=== PATIENT | male | born 1955 | race Caucasian/White ===

== ENCOUNTER 2017-04-11 13:12 | Inpatient (IN) | payer BC ==
--- NOTE | 2017-04-11 14:16 | RAD ---
INDICATION: Pneumonia. History of bronchiectasis COMPARISON: Chest x-ray May 03, 2015 TECHNIQUE: PA and lateral dual-energy views were obtained. FINDINGS: Bones/Soft Tissues: There are no acute bony findings. Cardiomediastinal: The cardiomediastinal silhouette is normal. Lungs: There is persistent airspace disease in the left lung base which is consistent with the clinical history of bronchiectasis. There is mild interval worsening suggesting the possibility of a superimposed infiltrate. The remaining lung jimenez are clear. There is hyperinflation. Pleura: There are no significant pleural effusions. Other: None IMPRESSION: Persistent left basilar abnormalities. Mild interval worsening suggests a superimposed acute upon chronic process.
[2017-04-11 17:11] LABS: Hematocrit 41 % (42-52); Hemoglobin 13.5 g/dl (14.0-18.0); Mean Corpuscular HGB Conc 33 g/dl (31-36); Mean Corpuscular Hemoglobin 31 pg (27-31); Mean Corpuscular Volume 93 fL (80-94); Mean Platelet Volume 7 um3 (7.4-10.4); Red Blood Count 4.36 10^6/ul (4.0-5.4); Red Cell Distribution Width 15 % (10.5-15); White Blood Count 16.3 10^3/ul (3.5-10.8)
[2017-04-11 17:25] LABS: Albumin 4.1 g/dL (3.2-5.2); BUN/Creatinine Ratio 24.7 (8-20); Calcium 9.5 mg/dL (8.6-10.3); EGFR African American 100.5 (>60); EGFR Non-African American 78.2 (>60); Globulin 4.3 g/dL (2-4); Potassium 4.3 mmol/L (3.5-5.0); Total Bilirubin 0.4 mg/dL (0.2-1.0); Total Protein 8.4 g/dL (6.4-8.9)
[2017-04-11] MEDS ORDERED: Cefepime(*) 2 GM in NS 0.9% 50 ML* 50 ML IVPB ONE (17:38)
[2017-04-11] MEDS ORDERED: Albuterol 2.5 MG/3 ML NEB.SOL* (0.083%) INH PRN (19:32)
[2017-04-11] MEDS ORDERED: Iohexol 350* (CONTRAST) 500 ML MDV IV ONE (19:49)
[2017-04-11] MEDS ORDERED: Vancomycin per Pharmacy* NOTE FOLLOW UP PRN (19:51)
--- NOTE | 2017-04-11 20:20 | ED ---
Doris Clay Thomas, scribed for Kory Ogden MD on 04/11/17 at 1726 . Throat Pain/Nasal Congestion - HPI Summary HPI Summary: Pt is a 61 y/o M presenting to the ED c/o hemoptysis and epistaxis. The pt reports a chronic cough that is lessening in severity and frequency since weeks ago when the cough began. Additional c/o fatigue and diaphoresis. Denies fever, vomiting, chills, changes in appetite, abd pain, pedal edema, SOB. The pt has an extensive PMHx of sinusitis and bronchiectasis. The pt says that he typically needs Abx for sinusitis about twice a year. The patient is currently taking a course of Avelox with tomorrow his last day. He has taken Abx for sinusitis two times in the last three months. His first of two previous infections occurred when he was in the ocean and took copious water up his nose. After two rounds of 10-day doxycycline, he was still coughing and had a "foul smell in his nose", after which he was prescribed Levofloxacin. The pt is currently on prednisone and Avelox. - History of Current Complaint Chief Complaint: EDGeneral Hx Obtained From: Patient Onset/Duration: Lasting Days - bloody sputum began today Cough: Other: - POS: cough - Allergies/Home Medications Allergies/Adverse Reactions: Allergies Allergy/AdvReac Type Severity Reaction Status Date / Time Sulfamethoxazole Allergy Unknown Unknown Verified 02/06/16 21:38 w/Trimethoprim Reaction [From Bactrim] Details Home Medications: Home Medications Cetirizine* [ZyrTEC 10 MG TAB*] 10 mg PO QPM 04/11/17 [History Confirmed ] Cholecalciferol TAB* [Vitamin D TAB*] 3,000 units PO DAILY 04/11/17 [History Confirmed 04/11/17] Dimethyl Fumarate(NF) [Tecfidera(NF)] 240 mg PO BID 04/11/17 [History Confirmed 04/11/17] Escitalopram (NF) [Lexapro 10 mg (NF)] 10 mg PO DAILY 04/11/17 [History Confirmed 04/11/17] Interferon Beta-1A [Avonex Pen] 30 mcg IM WEEKLY 04/11/17 [History Confirmed ] Lactobacillus Acidophilu (GG)* [Culturelle*] 1 cap PO DAILY 04/11/17 [History Confirmed 04/11/17] Lisdexamfetamine (NF) [Vyvanse (NF)] 30 mg PO QAM 04/11/17 [History Confirmed ] LoraTADine TAB(NF) [Claritin 10 MG TAB(NF)] 10 mg PO QAM 04/11/17 [History Confirmed 04/11/17] Mometasone NASAL (NF) [Nasonex (NF)] 1 spray BOTH NARES DAILY 04/11/17 [History Confirmed 04/11/17] Moxifloxacin TAB(NF) [Avelox TAB (NF)] 400 mg PO QAM 04/11/17 [History Confirmed 04/11/17] [place]-3 Fatty Acids (Nf) [Fish Oil (NF)] 1,000 mg PO DAILY 04/11/17 [History Confirmed 04/11/17] predniSONE TAB* [Deltasone TAB*] 10 mg PO QAM 04/11/17 [History Confirmed ] PMH/Surg Hx/FS Hx/Imm Hx Previously Healthy: No Respiratory History: Reports: Hx Asthma - NO INHALER, Other Respiratory Problems /Disorders - bronchiectasis MANY MEDS Musculoskeletal History: Denies: Hx Rheumatoid Arthritis, Hx Osteoporosis Infectious Disease History: No Infectious Disease History: Denies: Traveled Outside the [place] in Last 30 Days - Family History Known Family History: Positive: Cardiac Disease Family History: Father - [place] - Social History Alcohol Use: Rare Hx Substance Use: No Substance Use Type: Reports: None Hx Tobacco Use: No Smoking Status (MU): Never Smoked Tobacco Review of Systems Positive: Fatigue, Skin Diaphoresis. Negative: Fever, Chills Positive: Epistaxis Positive: Cough - cough with hemoptysis. Negative: Shortness Of Breath Positive: Other - NEG: changes in appetite. Negative: Abdominal Pain, Vomiting Negative: Edema - pedal All Other Systems Reviewed And Are Negative: Yes Physical Exam - Summary Physical Exam Summary: The patient is well-nourished in no acute distress and in no acute pain. The skin is warm and dry and skin color reflects adequate perfusion. HEENT: The head is normocephalic and atraumatic. The pupils are equal and reactive. The conjunctivae are clear and without drainage. Nares are patent and without drainage. Mouth reveals moist mucous membranes and the throat is without erythema and exudate with no post nasal drip. Neck is supple with full range of motion and non-tender. There are no carotid bruits. There is no neck vein distension. Respiratory: Rhonchi and some wheezing in the left lung field.Chest is non- tender. Cardiovascular: Hear is regular rate and rhythm. There is no murmur or rub auscultated. There is no peripheral edema and pulses are symmetrical and equal. Abdomen: The abdomen is soft and non-tender. There are normal bowel sounds heard in all four quadrants and there is no organomegaly palpated. Musculoskeletal: There is no back pain noted. Extremities are non-tender with full range of motion. There is good capillary refill. There is no peripheral edema or calf tenderness elicited. Neurological: Patient is alert and oriented to person, place and time. The patient has symmetrical motor strength in all four extremities. Cranial nerves are grossly intact. Deep tendon reflexes are symmetrical and equal in all four extremities. Psychiatric: The patient has an appropriate affect and does not exhibit any anxiety or depression. Triage Information Reviewed: Yes Vital Signs On Initial Exam: Initial Vitals Temp Pulse Resp BP Pulse Ox 98.0 F 95 20 140/68 97 04/11/17 13:15 04/11/17 13:15 04/11/17 13:15 04/11/17 13:15 04/11/17 13:15 Vital Signs Reviewed: Yes - [place]ara Coma Scale Coma Scale Total: 15 Diagnostics - Vital Signs Vital Signs Temp Pulse Resp BP Pulse Ox 04/11/17 16:25 98.9 F 99 21 149/67 95 04/11/17 15:26 98.2 F 92 20 138/66 99 04/11/17 13:15 98.0 F 95 20 140/68 97 - Laboratory Lab Results: Lab Results 04/11/17 04/11/17 04/11/17 Range/Units 16:55 16:55 16:55 WBC 16.3 H (3.5-10.8) 10^3/ul RBC 4.36 (4.0-5.4) 10^6/ul Hgb 13.5 L (14.0-18.0) g/dl Hct 41 L (42-52) % MCV 93 (80-94) fL MCH 31 (27-31) pg MCHC 33 (31-36) g/dl RDW 15 (10.5-15) % Plt Count 396 (150-450) 10^3/ul MPV 7 L (7.4-10.4) um3 Neut % (Auto) 92.0 H (38-83) % Lymph % (Auto) 5.2 L (25-47) % [place] % (Auto) 2.6 (1-9) % Eos % (Auto) 0.1 (0-6) % Baso % (Auto) 0.1 (0-2) % Absolute Neuts (auto) 15.0 H (1.5-7.7) 10^3/ul Absolute Lymphs (auto) 0.8 L (1.0-4.8) 10^3/ul Absolute Monos (auto) 0.4 (0-0.8) 10^3/ul Absolute Eos (auto) 0 (0-0.6) 10^3/ul Absolute Basos (auto) 0 (0-0.2) 10^3/ul Absolute Nucleated RBC 0 10^3/ul Nucleated RBC % 0 INR (Anticoag Therapy) 0.90 (0.89-1.11) D-Dimer, Quantitative < 200 (Less Than 230) ng/mL Sodium 135 (133-145) mmol/L Potassium 4.3 (3.5-5.0) mmol/L Chloride 99 L (101-111) mmol/L Carbon Dioxide 27 (22-32) mmol/L Anion Gap 9 (2-11) mmol/L BUN 24 (6-24) mg/dL Creatinine 0.97 (0.67-1.17) mg/dL Est GFR ( Amer) 100.5 (>60) Est GFR (Non-Af Amer) 78.2 (>60) BUN/Creatinine Ratio 24.7 H (8-20) Glucose 117 H (70-100) mg/dL Lactic Acid (0.5-2.0) mmol/L Calcium 9.5 (8.6-10.3) mg/dL Total Bilirubin 0.40 (0.2-1.0) mg/dL AST 12 L (13-39) U/L ALT 12 (7-52) U/L Alkaline Phosphatase 60 (34-104) U/L Troponin I 0.00 (<0.04) ng/mL B-Natriuretic Peptide ( - 100) pg/mL Total Protein 8.4 (6.4-8.9) g/dL Albumin 4.1 (3.2-5.2) g/dL Globulin 4.3 H (2-4) g/dL Albumin/Globulin Ratio 1.0 (1-3) 04/11/17 04/11/17 Range/Units 16:55 16:55 WBC (3.5-10.8) 10^3/ul RBC (4.0-5.4) 10^6/ul Hgb (14.0-18.0) g/dl Hct (42-52) % MCV (80-94) fL MCH (27-31) pg MCHC (31-36) g/dl RDW (10.5-15) % Plt Count (150-450) 10^3/ul MPV (7.4-10.4) um3 Neut % (Auto) (38-83) % Lymph % (Auto) (25-47) % [place] % (Auto) (1-9) % Eos % (Auto) (0-6) % Baso % (Auto) (0-2) % Absolute Neuts (auto) (1.5-7.7) 10^3/ul Absolute Lymphs (auto) (1.0-4.8) 10^3/ul Absolute Monos (auto) (0-0.8) 10^3/ul Absolute Eos (auto) (0-0.6) 10^3/ul Absolute Basos (auto) (0-0.2) 10^3/ul Absolute Nucleated RBC 10^3/ul Nucleated RBC % INR (Anticoag Therapy) (0.89-1.11) D-Dimer, Quantitative (Less Than 230) ng/mL Sodium (133-145) mmol/L Potassium (3.5-5.0) mmol/L Chloride (101-111) mmol/L Carbon Dioxide (22-32) mmol/L Anion Gap (2-11) mmol/L BUN (6-24) mg/dL Creatinine (0.67-1.17) mg/dL Est GFR ( Amer) (>60) Est GFR (Non-Af Amer) (>60) BUN/Creatinine Ratio (8-20) Glucose (70-100) mg/dL Lactic Acid 0.8 (0.5-2.0) mmol/L Calcium (8.6-10.3) mg/dL Total Bilirubin (0.2-1.0) mg/dL AST (13-39) U/L ALT (7-52) U/L Alkaline Phosphatase (34-104) U/L Troponin I (<0.04) ng/mL B-Natriuretic Peptide 66 ( - 100) pg/mL Total Protein (6.4-8.9) g/dL Albumin (3.2-5.2) g/dL Globulin (2-4) g/dL Albumin/Globulin Ratio (1-3) Result Diagrams: 04/11/17 16:55 04/11/17 16:55 Lab Statement: Any lab studies that have been ordered have been reviewed, and results considered in the medical decision making process. - Radiology CXR Xray Interpretation: Positive (See Comments) - Persistent left basilar abnormalities. Mild interval worsening suggests a superimposed acute upon chronic process. Radiology Interpretation Completed By: Radiologist - EKG 1823 Cardiac Rate: NL - 70 bpm EKG Interpretation: RBBB. Sinus Rhythm. No STEMI. A lot of artifact. Re-Evaluation - Re-Evaluation First Eval Re-Evaluation Time: 17:25 Change: Unchanged Comment: Patient says that he does not want to stay. Second Eval Re-Evaluation Time: 18:00 Change: Unchanged Comment: Patient still says that he does not want to stay. An article about bronchiectasis was given to the patient. Discussed that he has been on multiple Abx and sx are not improving. EENT Course/Dx - Course Assessment/Plan: Pt is a 61 y/o M presenting to the ED c/o hemoptysis and epistaxis. The pt reports a chronic cough that is lessening in severity and frequency since weeks ago when the cough began. Additional c/o fatigue and diaphoresis. Denies fever, vomiting, chills, changes in appetite, abd pain, pedal edema, SOB. The pt has an extensive PMHx of sinusitis and bronchiectasis. The pt says that he typically needs Abx for sinusitis about twice a year. The patient is currently taking a course of Avelox with tomorrow his last day. He has taken Abx for sinusitis two times in the last three months. His first of two previous infections occurred when he was in the ocean and took copious water up his nose. After two rounds of 10-day doxycycline, he was still coughing and had a "foul smell in his nose", after which he was prescribed Levofloxacin. The pt is currently on prednisone and Avelox. WBC of 16.3, BUN of 24.7. EKG reveals no STEMI. CXR reveals "Persistent left basilar abnormalities. Mild interval worsening suggests a superimposed acute upon chronic process." Has been on Abx x4, is getting worse and coughing up blood. Recommendation is that if he failed outpatient Abx that he is to be treated as an inpatient. He is not hypoxic, is not very tachypnic, is not hypotensive and does not have a fever. Discussed care of patient with Dr. Lemon who accepts pt for admission. He will be admitted with Dx of acute left lower lobe PNA, bronchiectasis, hemoptysis and failed outpatient therapy. He understands and agrees. - Diagnoses Provider Diagnoses: Failure of outpatient treatment, Hemoptysis, Bronchiectasis, Left lower lobe pneumonia - Provider Notifications Discussed Care Of Patient With: Camelia Lemon Time Discussed With Above Provider: 18:15 Instructed by Provider To: Other - Patient was discussed and Dr. Lemon accepts patient for admission. - Critical Care Time Critical Care Time: 30-74 min - 30 minutes Discharge - Discharge Plan Condition: Fair Disposition: ADMITTED TO [facility] documentation as recorded by the Doris major Thomas accurately reflects the service I personally performed and the decisions made by , Kory Ogden MD.
[2017-04-11] MEDS ORDERED: Albuterol/Ipratropium NEB.SOL* Albuterol 2.5 MG/Ipratropium 0.5 MG 3 ML ONE (20:25)
[2017-04-11] MEDS: Mometasone/Formoter 200/5 MDI INH SCH (20:29)
--- NOTE | 2017-04-11 20:40 | RAD ---
Indication: Hemoptysis, pneumonia. Contrast: Administered 68.7 ml of OMNIPAQUE 350 mgi/ml CTA of the chest was performed after IV contrast administration. Coronal and sagittal reconstructed images were obtained. The pulmonary arterial tree is well opacified. There are no filling defects present to suggest pulmonary embolus. There is no mediastinal or hilar adenopathy noted. The inferior thyroid lobes are unremarkable. The trachea appear patent. There is filling of the presumed dilated bronchioles in the left lower quadrant. This is consistent with pneumonia and peribronchial thickening. This is a chronic process and was present on previous exam of June 09, 2012. IMPRESSION: Prominent bronchiectasis with fluid in dilated bronchi in the left lower lobe. No evidence of pulmonary embolus is noted. Confluent areas may represent pneumonia.
[2017-04-11] MEDS: Azithromycin IV(*) 500 MG in NS 0.9% 250 ML* 250 ML IVPB SCH (20:45)
[2017-04-11] MEDS: NS 0.9% 1000 ML* 1,000 ML IV SCH (20:45)
[2017-04-11] MEDS: methylPREDNISolone 125 MG* 2 ML VIAL IV SCH (20:57)
[2017-04-11] MEDS ORDERED: Vancomycin(*) 1,500 MG in NS 0.9% 250 ML* 250 ML IVPB ONE (22:00)
[2017-04-11] MEDS: DIMETHYL FUMARATE 240 MG PO SCH (22:39)
[2017-04-11] MEDS: Albuterol/Ipratropium NEB.SOL* Albuterol 2.5 MG/Ipratropium 0.5 MG 3 ML INH SCH (23:11)
[2017-04-12] MEDS: Albuterol/Ipratropium NEB.SOL* Albuterol 2.5 MG/Ipratropium 0.5 MG 3 ML INH SCH ×3 (03:28→10:58)
[2017-04-12] MEDS: methylPREDNISolone 125 MG* 2 ML VIAL IV SCH (03:39)
--- NOTE | 2017-04-12 03:48 | HP ---
CC: Dr. Walter; Dr. Escobar; Dr. Begum * HISTORY AND PHYSICAL: DATE OF ADMISSION: 04/11/17 PRIMARY CARE PROVIDER: Dr. Walter. ATTENDING PHYSICIAN WHILE IN THE HOSPITAL: Dr. Zack Palomares * (report dictated by Vinny Gallagher NP). CHIEF COMPLAINT: 1. Cough. 2. Shortness of breath. HISTORY OF PRESENTING ILLNESS: Mr. Hernandes is a 61-year-old male patient who has a history of MS, asthma, COPD, bronchiectasis, psoriasis, and sleep apnea. He comes into the ER today stating that since December he had a cough that has been getting worse at times. He went to this primary back in December, was put on Levaquin, and it actually went away and he was doing well up until the end of February cough came back. He was having productive sputum production. He saw Dr. Walter who gave him prescription for doxy, he was not getting any better but last week he had an appointment with his employment appeals examiner, so he waited to see his employment appeals examiner in [place] who prescribed him Avelox and prednisone, which he has been taking. He states he has been feeling much better with this; however, today he noticed he started coughing again and he brought up some blood. He states that he was concerned obviously because he brought some jayson blood, he called his employment appeals examiner who referred him to his primary and the primary sent him here to the hospital. There has been no reports of fevers today, but he did have some fevers back several days ago before starting the Avelox. He denies having any chest pain currently. He states he does not feel short of breath. He denies any abdominal pain. He denies having any nausea or vomiting and no recent change in his medications. The patient was concerned because of the hemoptysis, so he came into the ER, was evaluated, it was noted that he had bilateral infiltrates, in addition to this was noted to have an elevated white count. So, the hospitalist service was asked to evaluate for admission. PAST MEDICAL HISTORY: Significant for: 1. MS. 2. Asthma. 3. Bronchiectasis. 4. COPD. 5. Psoriasis. 6. TANA. PAST SURGICAL HISTORY: He has had septoplasty in the past. HOME MEDICATIONS: According to the list that he provided include: 1. Prednisone 10 mg p.o. daily. 2. [place]-3 fatty acid 1000 mg p.o. daily. 3. Avelox 400 mg daily. 4. Nasonex 1 spray both nares daily. 5. Claritin 10 mg p.o. daily. 6. Vyvanse 30 mg daily. 7. Culturelle 1 tablet p.o. daily. 8. Avonex Pen 30 mcg IM weekly. 9. Lexapro 10 mg p.o. daily. 10. Tecfidera 240 mg p.o. twice a day. 11. Vitamin D 3000 units p.o. daily. 12. Zyrtec 10 mg p.o. daily. ALLERGIES TO MEDICATIONS: He is allergic to BACTRIM. FAMILY HISTORY: Mother had a history of MS. The father had a history of [place]. SOCIAL HISTORY: He occasionally drinks alcohol. He does not smoke. His surrogate decision maker is his . REVIEW OF SYSTEMS: There is no documented fever. He denied having any significant weight change. There was no double vision. No ear discharge. He denies having any rhinorrhea. No sore throat. No thyroid enlargement. Denies having any nausea or vomiting. No dysuria. No frequency. No loss of consciousness. No pruritus and no skin ulcerations. Review of 14 systems completed, all others negative. PHYSICAL EXAMINATION GENERAL: At this time, Mr. Hernandes is a 61-year-old male patient; appears to be well nourished, well developed, sitting in the ER stretcher. He does not appear to be in any acute distress. VITAL SIGNS: Blood pressure 149/67, pulse 99, respirations 20, O2 sat 95%, temperature 98.9. HEENT: Head is atraumatic, normocephalic. Eyes: EOMs are intact. Sclerae are anicteric and not pale. NECK: Supple. Throat: Oral mucosa appears to be moist. No oropharyngeal erythema. LUNGS: He had wheezing in the lower lobes. Equal diaphragmatic expansion. HEART: Sounds S1, S2. Regular rate and rhythm. No murmurs, rubs, or gallops. ABDOMEN: Soft, flat, nontender. Bowel sounds present. EXTREMITIES: Pulses were 2+ throughout. Able to move all 4 extremities with 5/ 5 strength. NEUROLOGICAL: The patient is awake, he is alert, and he is oriented x3. Warp Tension Tester were equal. Tongue midline. He had no gross focal deficits. SKIN: Grossly intact. LABORATORY DATA/DIAGNOSTIC STUDIES: Today revealed a WBC of 16.3, RBC of 4.36 , hemoglobin 13.5, hematocrit of 41, platelet count of 396. INR of 0.92. D- dimer less than 200. His sodium was 135, potassium 4.3, chloride 99, bicarb 27 , BUN 24, creatinine of 0.97, glucose of 117. The lactic was 0.8, calcium 9.5, total bili 0.4. AST 12, ALT 12, alk phos 60. Troponin 0. BNP of 66. Albumin of 4.1. He had a chest x-ray obtained today, which revealed persistent left basilar abnormalities, mild interval worsening suggestive of superimposed acute upon chronic process. He did have an EKG today, which showed a normal sinus rhythm, no ST elevations or T-wave inversions were noted. Old medical records were reviewed. ASSESSMENT AND PLAN: Mr. Hernandes is a 61-year-old male patient, he is sitting in the ER stretcher. He came in today with complaints of having coughing up bright red blood. He was evaluated in the ER and there was concern for pneumonia. He will be admitted under inpatient status for: 1. Bilateral pneumonia with a history of bronchiectasis at this point and he also is having hemoptysis. I suspect the hemoptysis is from an acute pulmonary infection. He has only had the one episode this morning, none today. My plan is to get a CTA of the chest. I did have a call to Dr. Escobar. I will get Dr. Begum to consult too. I am going to put him on broad-spectrum antibiotics in the form of cefepime, vanco, and azithromycin. We may need to consider bronchoscopy. He has not had any recent travel that would make him to be concerned for TB, but at this point I think we will just get sputum cultures, get in touch with ID and Pulmonology, I did leave them messages, they have not returned my calls yet and we will continue to follow. Continue with aggressive pulmonary toileting. 2. Multiple sclerosis. Continue medications as prescribed. 3. Asthma and chronic obstructive pulmonary disease. He is wheezing on exam. I am going to put him on steroids and nebs around the clock and Dulera and pulmonary toileting. 4. Obstructive sleep apnea. He does not wear a mask at nights. He will follow with his primary. 5. Psoriasis. Continue his current medical regimen. 6. Bronchiectasis. Again, we will get him set up with Pulmonology. 7. Deep vein thrombosis prophylaxis. Because of the hemoptysis, I am just going to put him on SCDs. 8. Code status. Full code. 9. Fluids, electrolytes, and nutrition. He can have a regular diet. TIME SPENT: On admission was 60 minutes; greater than half the time spent face- to- face with the patient obtaining my history and physical, other half time was spent going over the plan of care with the patient and implementing plan of care. I discussed this plan of care with my attending, Dr. Palomares, he is in agreement. VINNY GALLAGHER NP [id number]/CPS #: [id number] [email or web address]
[2017-04-12] MEDS: Cefepime(*) 2 GM in NS 0.9% 50 ML* 50 ML IVPB SCH ×2 (05:42→18:15)
[2017-04-12] MEDS ORDERED: Vancomycin(*) 1,000 MG in NS 0.9% 250 ML* 250 ML IVPB SCH (06:00)
[2017-04-12 06:30] LABS: Hematocrit 36 % (42-52); Mean Corpuscular HGB Conc 34 g/dl (31-36); Mean Corpuscular Hemoglobin 32 pg (27-31); Mean Corpuscular Volume 94 fL (80-94); Mean Platelet Volume 7 um3 (7.4-10.4); Red Cell Distribution Width 14 % (10.5-15); White Blood Count 8.1 10^3/ul (3.5-10.8)
[2017-04-12 06:46] LABS: BUN/Creatinine Ratio 26.9 (8-20); Calcium 8.8 mg/dL (8.6-10.3); EGFR African American 129.3 (>60); EGFR Non-African American 100.5 (>60); Potassium 4.1 mmol/L (3.5-5.0)
[2017-04-12] MEDS: Mometasone/Formoter 200/5 MDI INH SCH ×2 (07:02→21:35)
[2017-04-12] MEDS: LORATADINE 10 MG PO SCH (08:52)
[2017-04-12] MEDS: Citalopram TAB* 20 MG PO SCH ×2 (08:52→13:14)
[2017-04-12] MEDS: DIMETHYL FUMARATE 240 MG PO SCH ×2 (11:17→20:38)
[2017-04-12] MEDS: LISDEXAMFETAMINE 10 MG PO SCH (11:17)
--- NOTE | 2017-04-12 12:12 | PN ---
Subjective Date of Service: 04/12/17 Interval History: Feels much better. Cough much better, much less sputum, no more hemoptysis. No new c/o/ Objective Active Medications: Albuterol (Ventolin 2.5 Mg/3 Ml Neb.Sapphire*) 2.5 mg INH Q2H PRN PRN Reason: SOB/WHEEZING Albuterol/Ipratropium (Duoneb (Albuterol 2.5 Mg/Ipratropium 0.5 Mg)) 1 neb INH [id number] AWAKE [facility] Last Admin: 04/12/17 10:58 Dose: Not Given Cetirizine HCl (Zyrtec*) 10 mg PO QPM [facility] PRN Reason: Protocol Citalopram Hydrobromide (Celexa Tab*) 20 mg PO DAILY [facility] Dimethyl Fumarate (Tecfidera(Nf)) 240 mg PO BID [facility] Last Admin: 04/12/17 11:17 Dose: 240 mg Cefepime HCl 2 gm/ Sodium (Chloride) 50 mls @ 100 mls/hr IVPB Q12H [facility] Last Admin: 04/12/17 05:42 Dose: 100 mls/hr Sodium Chloride (Ns 0.9% 1000 Ml*) 1,000 mls @ 100 mls/hr IV PER RATE [facility] Last Admin: 04/11/17 20:45 Dose: 100 mls/hr Azithromycin 500 mg/ Sodium (Chloride) 250 mls @ 250 mls/hr IVPB Q24H [facility] Last Admin: 04/11/17 20:45 Dose: 250 mls/hr Lisdexamfetamine Dimesylate (Vyvanse(Nf)) 30 mg PO QAM [facility] Last Admin: 04/12/17 11:17 Dose: 30 mg Loratadine (Claritin Tab(Nf)) 10 mg PO QAM [facility] Last Admin: 04/12/17 08:52 Dose: 10 mg Mometasone Furoate/Formoterol Fumar (Dulera 200/5 Mdi*) 2 puff INH BID [facility] Last Admin: 04/12/17 07:02 Dose: Not Given Nf: Interferon Beta- 1a [Avonex Pen] 30 Mcg 30 mcg IM WEEKLY [facility] Vital Signs 04/11/17 04/11/17 04/11/17 20:00 20:03 20:31 Temperature 98.8 F Pulse Rate 82 83 Respiratory 16 16 16 Rate Blood Pressure 148/68 (mmHg) O2 Sat by Pulse 98 96 Oximetry 04/12/17 04/12/17 00:05 03:43 Temperature 97.8 F Pulse Rate 65 70 Respiratory 16 Rate Blood Pressure 120/55 (mmHg) O2 Sat by Pulse 96 98 Oximetry Oxygen Devices in Use Now: None Appearance: Alert, standing by his bed. In good spirits. Looks comfortable. No cough during my visit. Eyes: No Scleral Icterus Ears/Nose/Mouth/Throat: Clear Oropharnyx, Mucous Membranes Moist Respiratory: Symmetrical Chest Expansion and Respiratory Effort, Clear to Auscultation, Clear to Percussion Cardiovascular: NL Sounds; No Murmurs; No JVD, RRR, No Edema, - Extremities: No Edema, No Clubbing, Cyanosis, - Skin: No Rash or Ulcers, No Nodules or Sclerosis, - Neurological: Alert and Oriented x 3, NL Sensation Result Diagrams: 04/12/17 05:33 04/12/17 05:33 Additional Lab and Data: Lab Results 04/11/17 04/11/17 04/11/17 Range/Units 16:55 16:55 16:55 WBC 16.3 H (3.5-10.8) 10^3/ul RBC 4.36 (4.0-5.4) 10^6/ul Hgb 13.5 L (14.0-18.0) g/dl Hct 41 L (42-52) % MCV 93 (80-94) fL MCH 31 (27-31) pg MCHC 33 (31-36) g/dl RDW 15 (10.5-15) % Plt Count 396 (150-450) 10^3/ul MPV 7 L (7.4-10.4) um3 Neut % (Auto) 92.0 H (38-83) % Lymph % (Auto) 5.2 L (25-47) % [place] % (Auto) 2.6 (1-9) % Eos % (Auto) 0.1 (0-6) % Baso % (Auto) 0.1 (0-2) % Absolute Neuts (auto) 15.0 H (1.5-7.7) 10^3/ul Absolute Lymphs (auto) 0.8 L (1.0-4.8) 10^3/ul Absolute Monos (auto) 0.4 (0-0.8) 10^3/ul Absolute Eos (auto) 0 (0-0.6) 10^3/ul Absolute Basos (auto) 0 (0-0.2) 10^3/ul Absolute Nucleated RBC 0 10^3/ul Nucleated RBC % 0 INR (Anticoag Therapy) 0.90 (0.89-1.11) D-Dimer, Quantitative < 200 (Less Than 230) ng/mL Sodium 135 (133-145) mmol/L Potassium 4.3 (3.5-5.0) mmol/L Chloride 99 L (101-111) mmol/L Carbon Dioxide 27 (22-32) mmol/L Anion Gap 9 (2-11) mmol/L BUN 24 (6-24) mg/dL Creatinine 0.97 (0.67-1.17) mg/dL Est GFR ( Amer) 100.5 (>60) Est GFR (Non-Af Amer) 78.2 (>60) BUN/Creatinine Ratio 24.7 H (8-20) Glucose 117 H (70-100) mg/dL Lactic Acid (0.5-2.0) mmol/L Calcium 9.5 (8.6-10.3) mg/dL Total Bilirubin 0.40 (0.2-1.0) mg/dL AST 12 L (13-39) U/L ALT 12 (7-52) U/L Alkaline Phosphatase 60 (34-104) U/L Troponin I 0.00 (<0.04) ng/mL B-Natriuretic Peptide ( - 100) pg/mL Total Protein 8.4 (6.4-8.9) g/dL Albumin 4.1 (3.2-5.2) g/dL Globulin 4.3 H (2-4) g/dL Albumin/Globulin Ratio 1.0 (1-3) 04/11/17 04/11/17 Range/Units 16:55 16:55 WBC (3.5-10.8) 10^3/ul RBC (4.0-5.4) 10^6/ul Hgb (14.0-18.0) g/dl Hct (42-52) % MCV (80-94) fL MCH (27-31) pg MCHC (31-36) g/dl RDW (10.5-15) % Plt Count (150-450) 10^3/ul MPV (7.4-10.4) um3 Neut % (Auto) (38-83) % Lymph % (Auto) (25-47) % [place] % (Auto) (1-9) % Eos % (Auto) (0-6) % Baso % (Auto) (0-2) % Absolute Neuts (auto) (1.5-7.7) 10^3/ul Absolute Lymphs (auto) (1.0-4.8) 10^3/ul Absolute Monos (auto) (0-0.8) 10^3/ul Absolute Eos (auto) (0-0.6) 10^3/ul Absolute Basos (auto) (0-0.2) 10^3/ul Absolute Nucleated RBC 10^3/ul Nucleated RBC % INR (Anticoag Therapy) (0.89-1.11) D-Dimer, Quantitative (Less Than 230) ng/mL Sodium (133-145) mmol/L Potassium (3.5-5.0) mmol/L Chloride (101-111) mmol/L Carbon Dioxide (22-32) mmol/L Anion Gap (2-11) mmol/L BUN (6-24) mg/dL Creatinine (0.67-1.17) mg/dL Est GFR ( Amer) (>60) Est GFR (Non-Af Amer) (>60) BUN/Creatinine Ratio (8-20) Glucose (70-100) mg/dL Lactic Acid 0.8 (0.5-2.0) mmol/L Calcium (8.6-10.3) mg/dL Total Bilirubin (0.2-1.0) mg/dL AST (13-39) U/L ALT (7-52) U/L Alkaline Phosphatase (34-104) U/L Troponin I (<0.04) ng/mL B-Natriuretic Peptide 66 ( - 100) pg/mL Total Protein (6.4-8.9) g/dL Albumin (3.2-5.2) g/dL Globulin (2-4) g/dL Albumin/Globulin Ratio (1-3) Microbiology and Other Data: Microbiology 04/12/17 03:40 Legionella Urinary Antigen - Final Urine Negative Legionella Streptococcus pneumoniae Ag Screen - Final Negative S. pneumo Antigen 04/11/17 22:45 Gram Stain - Final Sputum Expectorated Assess/Plan/Problems-Billing Assessment: - Patient Problems (1) Pneumonia Current Visit: Yes Status: Acute Code(s): J18.9 - PNEUMONIA, UNSPECIFIED ORGANISM SNOMED Code(s): 087278868 Comment: Much improved. Continue cefipime, azithromycin. Plan D/C 04/13 if he continues to do well. Prednisone taper. (2) Bronchiectasis Current Visit: Yes Status: Acute Code(s): J47.9 - BRONCHIECTASIS, UNCOMPLICATED SNOMED Code(s): 15706505 Comment: Pt plans on ENT office consultation regarding his chronic/ recurreing sinusitis. (3) Multiple sclerosis Current Visit: Yes Status: Acute Code(s): G35 - MULTIPLE SCLEROSIS SNOMED Code(s): 41897635 Comment: Continue dimethyl fumarate and interferon. (4) TANA (obstructive sleep apnea) Current Visit: Yes Status: Acute Code(s): G47.33 - OBSTRUCTIVE SLEEP APNEA ( ADULT) (PEDIATRIC) SNOMED Code(s): 29394563 Comment: Fup with his PCP.
[2017-04-12] MEDS: NS 0.9% 1000 ML* 1,000 ML IV SCH (13:11)
[2017-04-12] MEDS: predniSONE TAB* 20 MG PO SCH (13:12)
--- NOTE | 2017-04-12 15:58 | CONS ---
CONSULTATION REPORT: DATE OF CONSULTATION: 04/12/17 REQUESTING PROVIDER: Vinny Gallagher NP. CONSULTING SERVICE: Infectious Disease. REASON FOR CONSULTATION: Bronchiectasis, pneumonia. IMPRESSION: 1. Chronic bronchiectasis with acute exacerbation complicated by community- acquired pneumonia. This could be viral or bacterial. He did have an episode of hemoptysis towards the end of recent antibiotic and corticosteroid therapy. That may have been on the basis of ongoing infection, though may not have been infection related as well. Usual bacterial organisms include Pseudomonas, Staph , Haemophilus. 2. Chronic sinusitis and chronic bronchiectasis, he has had full workup in the past and it had been concluded the sinusitis and postnasal drip was what is causing his bronchiectasis. 3. Multiple sclerosis. 4. Psoriasis. 5. Obstructive sleep apnea. RECOMMENDATIONS: 1. Continue cefepime and azithromycin. We will stop vancomycin. A sputum culture was sent and is pending, I think MRSA less likely. He is having IV corticosteroids per the hospitalist and pulmonary service. 2. He is going to meet with Dr. Escobar on strategies regarding prevention of some of these exacerbations and progressing of his underlying bronchiectasis. It does seem like there is some coincidental timing related to stressful work schedule and the timing of his exacerbations. He is considering lifestyle changes to change that. We will also add immunoglobulin levels given more frequent exacerbation recently to rule out an immunodeficiency. HISTORY OF PRESENT ILLNESS: This is a 61-year-old male with bronchiectasis, admitted with hemoptysis. He has from time to time had exacerbation of bronchiectasis which includes cough, sputum production, malaise without real shortness of breath. That happened recently after a trip to [place] and he was treated with doxycycline with minimum improvement and Levaquin with more improvement. He was changed over to Avelox and prednisone by his manager database about 10 days after stopping the Levaquin. When he started that medication regimen, he had improvement in his symptoms. He had resolution of his cough and malaise; however, then on , came back and he had an episode of hemoptysis, it was just blood with some mucus. There was no clot. He came to the ER yesterday, his white count was 16,000. He was started on methylprednisolone, vancomycin, cefepime and azithromycin. He had a chest CT done that showed bronchiectasis with fluid and dilated bronchi in the left lower lobe with some confluence areas. This morning he has improvement in his malaise and low grade fever. His cough is better. He has had no hemoptysis since yesterday morning. PAST MEDICAL HISTORY: 1. Bronchiectasis 2. Chronic sinusitis. 3. Obstructive sleep apnea. 4. Multiple sclerosis. 5. Psoriasis. MEDICATIONS: 1. Albuterol. 2. Interferon once a week. 3. Cefepime 2 g IV every 12 hours. 4. Dimethyl fumarate. 5. Cetirizine. 6. Celexa. 7. Vancomycin. 8. Azithromycin 500 mg IV daily. 9. Methylprednisolone 60 mg IV every 8 hours. ALLERGIES: BACTRIM caused itching. FAMILY HISTORY: No tuberculosis or recurrent infections. His mother had multiple sclerosis. SOCIAL HISTORY: Lives in [place]. He is a instructional writer. Recent travel to [place] a few months ago, his past tuberculin skin testing has been negative. REVIEW OF SYSTEMS: All negative to full review of systems except as noted above. PHYSICAL EXAMINATION: Vital Signs: Temperature 36.6, heart rate 70, respiratory rate 16, blood pressure 120/55, O2 sat 98% on room air. In general , he is awake, not in distress. HEENT: There is no conjunctival hemorrhage. Oropharynx without lesions. Neck is supple without nuchal rigidity. Lymph Nodes: There is no cervical, supraclavicular, inguinal, axillary or epitrochlear lymphadenopathy. Heart has regular rate and rhythm without murmurs , rubs or gallops. Lungs: There are coarse breath sounds at the bases bilaterally. There is slightly prolonged expiratory phase. There is no wheeze or rale. Abdomen: Soft, nontender, nondistended. Skin: There is no rash or splinter hemorrhages. Musculoskeletal: There is no spine tenderness to palpation. No joint synovitis. LABORATORY DATA: White blood cell count 8, hemoglobin 12, MCV is 94, platelets are 313,000. Creatinine is 0.7, BNP was 60. Sputum Gram stain showed gram- positive cocci, gram-positive bacilli, gram-negative bacilli. Culture is pending. Please see impressions and recommendations outlined above. Thanks for asking me to see Mr. Hernandes in consultation. [id number]/[facility] #: [id number] [facility]
--- NOTE | 2017-04-12 16:41 | CONS ---
PULMONARY CONSULTATION REPORT: DATE OF CONSULT: 04/12/17 REQUESTED BY: Vinny Gallagher NP. REASON FOR CONSULTATION: Hemoptysis. HISTORY OF PRESENT ILLNESS: The patient is a 61-year-old male with a history of MS, asthma/COPD, bronchiectasis, hemoptysis in the past, psoriasis, and obstructive sleep apnea. The patient came into the emergency room for evaluation of hemoptysis. The patient has been having cough since December, worsening intermittently. The patient also having hernia develop due to chronic cough. The patient was seen by primary care physician in December, was prescribed Levaquin for possible bronchitis. Symptoms improved and returned back in February, with worsening of the cough productive of colored phlegm. The patient also has a history of sinus issues, chronic postnasal drip without much sinus symptoms. The patient follows up with cardiac nurse specialist in [place] and he tested positive to cats, mold, dust, and many other things. He has been receiving allergy shots and infusions. The patient recently followed up with his cardiac nurse specialist who prescribed Avelox and prednisone. Symptoms did not improve and worsened to an extent that he started coughing up blood. He got concerned at this time and came into the emergency room for further evaluation. The patient had fevers prior to the treatment with outpatient antibiotics. He continued to have few more episodes of hemoptysis in the emergency room. He did not have any further episodes since last night. This morning, he was able to cough up pink mucoid phlegm which is normal baseline for him. The patient denies significant shortness of breath currently. He denied chest pain, palpitations, or dizziness. He has denied nausea or vomiting. The patient was initiated on treatment for pneumonia with broad-spectrum antibiotics. Pulmonary consultation was requested for hemoptysis. I have seen and examined the patient at bedside earlier today. The patient reported improvement in his symptoms and he is eager to be discharged home and had many questions about his condition. I have reviewed records from his prior kennel manager dog track office visit and bronchoscopy. The patient had similar complaints of hemoptysis in the past , at which time he underwent bronchoscopy. As per his kennel manager dog track, his hemoptysis was resultant of chronic sinus issues with resultant drainage into his lungs. CT of the chest did reveal bronchiectasis and mucus filling in the left lower lobe bronchi. Patient was also noted to have elevated white count upon admission with normal white count this morning and a slight drop in hemoglobin, probably dilutional given change in all the parameters. PAST MEDICAL HISTORY: 1. MS. 2. Asthma/COPD. 3. Bronchiectasis. 4. Psoriasis. 5. TANA. PAST SURGICAL HISTORY: Septoplasty in the past. MEDICATIONS: 1. Prednisone 10 mg daily. 2. [place]-3 fatty acids. 3. Avelox 400 mg daily. 4. Nasonex 1 spray both nostrils daily. 5. Claritin 10 mg p.o. daily. 6. Vyvanse 30 mg daily. 7. Avonex pen 30 mcg IM weekly. 8. Lexapro 10 mg p.o. daily. 9. Tecfidera 240 mg p.o. twice daily. 10. Vitamin D 3000 units p.o. daily. 11. Zyrtec 10 mg daily. ALLERGIES TO MEDICATIONS: BACTRIM. FAMILY HISTORY: Mother has a history of MS, father has a history of [place]. SOCIAL HISTORY: Occasionally drinks alcohol, does not smoke currently, had issues with alcohol abuse and significant smoking in the past. REVIEW OF SYSTEMS: All 14 systems reviewed and as per HPI. PHYSICAL EXAM: The patient sitting in bed, in no apparent distress. Vital Signs: Temperature 97.8, pulse 70 beats per minute, respiratory rate 16 per minute, O2 sat 98% on room air, blood pressure 120/55. HEENT: Pupils equal, reactive to light, mucous membranes moist. Neck: Supple. Lungs: Inspiratory squeaks in the left lower lobe and some crackles. Otherwise, good air entry bilaterally. Cardiovascular: S1, S2 present. Regular. No murmurs, gallops, or rubs. Abdomen: Soft, nontender, nondistended. Bowel sounds present. Extremities: Normal range of motion. Neurologic: Alert, awake, oriented x3. No focal deficits. Skin: No rash or bruises. DIAGNOSTIC STUDIES/LAB DATA: Reveals WBC count of 8.1, hemoglobin 12.0, hematocrit 36, platelet count 313. Sodium 136, potassium 4.1, chloride 103, bicarb of 27, BUN 21, creatinine 0.78, calcium 8.8, BNP 66. CT of the chest as described above in HPI. EKG showed normal sinus rhythm with no ST-T wave changes. IMPRESSION AND RECOMMENDATION: 61-year-old male with a history of left lower lobe bronchiectasis, chronic sinusitis with purulent drainage from the sinuses, history of hemoptysis, admitted with hemoptysis that resolved since admission. The patient with bronchiectasis and hemoptysis likely secondary to bronchiectasis exacerbation. Pneumonia. History of multiple sclerosis. History of asthma and COPD. Obstructive sleep apnea. 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 The patient's hemoptysis likely secondary to pneumonia, chronic cough, and bronchiectasis exacerbation. Hemoptysis resolved now. No urgent need for bronchoscopy at this time. The patient is on broad-spectrum antibiotics, would continue with that. Would recommend infectious disease consultation. Do not suspect TB in his case given history in the past with negative bronchoscopy, cultures for TB in the past. Recommended agressive pulmonary toilet. The patient has vest therapy at home which he has not been compliant. He will need to follow up with ENT as outpatient for sinus drainage. Continue with Neti pot. Recommend bronchodilators and nebulized normal saline and flutter valve. The patient was instructed on flutter valve usage. Thank you for allowing me to participate in the care of your patient. Will follow up with the patient in 1 week in the clinic after discharge from hospital. [id number]/[facility] #: [id number] KEREN
[2017-04-12] MEDS ORDERED: Cetirizine* 10 MG TAB PO SCH (18:00)
[2017-04-12] MEDS ORDERED: Citalopram TAB* 20 MG PO SCH (20:00)
[2017-04-12] MEDS: Azithromycin IV(*) 500 MG in NS 0.9% 250 ML* 250 ML IVPB SCH (20:37)
[2017-04-12] MEDS ORDERED: Sodium Chloride(INHALANT) 3%* 4 ML NEB.SOLN INH SCH (21:00)
[2017-04-12] MEDS ORDERED: Vancomycin Trough Check NOTE FOLLOW UP ONE (22:00)
[2017-04-13] MEDS: Cefepime(*) 2 GM in NS 0.9% 50 ML* 50 ML IVPB SCH (06:00)
[2017-04-13 07:41] VITALS: BP 112/43
[2017-04-13] MEDS: Mometasone/Formoter 200/5 MDI INH SCH (08:05)
[2017-04-13] MEDS ORDERED: INTERFERON BETA 30 MCG IM SCH (09:00)
[2017-04-13] MEDS: LISDEXAMFETAMINE 10 MG PO SCH (09:05)
[2017-04-13] MEDS: LORATADINE 10 MG PO SCH (09:06)
[2017-04-13] MEDS: predniSONE TAB* 20 MG PO SCH (09:06)
[2017-04-13] MEDS: DIMETHYL FUMARATE 240 MG PO SCH (09:06)
--- NOTE | 2017-04-13 09:47 | PN ---
Progress Note - Progress Note Date of Service: 04/13/17 Note: Time spent on discharge 45 minutes.
[2017-04-13 12:18] LABS: Immunoglobulin A 220 mg/dL (61 - 356); Immunoglobulin G 1900 mg/dL (767 - 1590); Immunoglobulin M 125 mg/dL (37 - 286)
--- NOTE | 2017-04-14 00:51 | DS ---
CC: Dr. Walter; Dr. Escobar DISCHARGE SUMMARY: DATE OF ADMISSION: DATE OF DISCHARGE: 04/13/17 HOSPITAL COURSE: This 61-year-old man came with chief complaint of a cough and shortness of breath. He was found to have left lower lobe pneumonia. CT scan confirmed left lower lobe atelectasis with some fluid in his bronchi. This was a chronic finding. He has been followed by Dr. Lorenzo in [place] for many years for this condition. The patient responded well to antibiotics. I note he had been on two quinolones as an outpatient. He received cefepime and azithromycin here and as well as some steroids. He has been discharged on few more days of azithromycin and 7 days of cefuroxime. He will see Dr. Escobar before the end of this week. I told him to ask about possibly continuing if Dr. Escobar would be interested in a longer course of antibiotics. The patient is also going to make arrangements to see Ear, Nose, and Throat physician regarding his chronic sinus problems. I spoke to him about elevating his bed, using the flutter valve, which seem to help him quite a bit, considering using his percussion vest. He will be on a short tapering dose of prednisone. He had a little bit of wheezing, but this was clinically minor part of his picture. FINAL DIAGNOSES: 1. Pneumonia. 2. Bronchiectasis. 3. Multiple sclerosis. 4. Obstructive sleep apnea. I discussed with him asking about a repeat sleep apnea eval as last one was 15 years ago. DISCHARGE MEDICATIONS: 1. Azithromycin 250 mg daily for 3e days. 2. Cefuroxime 500 mg b.i.d. for 7 days. 3. Mometasone nasal spray both nares daily. 4. Culturelle one capsule daily. 5. Fish oil 1000 mg daily. 6. Dimethyl fumarate 240 mg b.i.d. 7. Interferon beta-1a 30 mcg IM weekly. 8. Escitalopram 10 mg daily. 9. Vitamin D3 1000 units daily. 10. Loratadine 10 mg daily. 11. Cetirizine 10 mg at bedtime. 12. Vyvanse 30 mg daily. 13. Prednisone 10 mg taper from 3 to 0 over 3 days. [id number]/[facility] #: [id number] [facility]
== END 2017-04-13 10:40 | disposition home or self-care (01) | DRG 140 ==
LOC: ED 13:12 → MED 18:13
PROVIDERS: ADMIT Internal Medicine; ATTEND Internal Medicine
DX: J44.0 Chronic obstructive pulmonary disease with (acute) lower respiratory infection (principal); J18.1 Lobar pneumonia, unspecified organism; G35 Multiple sclerosis; R04.2 Hemoptysis; J47.9 Bronchiectasis, uncomplicated; G47.33 Obstructive sleep apnea (adult) (pediatric); L40.9 Psoriasis, unspecified; R40.2412 Glasgow coma scale score 13-15, at arrival to emergency department; J32.9 Chronic sinusitis, unspecified; Z88.1 Allergy status to other antibiotic agents; Z82.49 Family history of ischemic heart disease and other diseases of the circulatory system; Z82.0 Family history of epilepsy and other diseases of the nervous system; Z88.2 Allergy status to sulfonamides; Z87.891 Personal history of nicotine dependence; Z72.89 Other problems related to lifestyle
CPT/HCPCS: 36415; 71020; 71275; 80048; 80053; 82784; 83605; 83880; 84484; 85025; 85379; 85610; 87040; 87070; 87205; 87899; 94640; 94760; 96374; 99284; A9270-GY; J0456; J0692; J2930; J3370; J7512; Q9967

== ENCOUNTER 2017-05-14 01:16 | Observation (INO) | payer BC ==
[2017-05-14 01:55] LABS: Hematocrit 34 % (42-52); Hemoglobin 11.4 g/dl (14.0-18.0); Mean Corpuscular HGB Conc 33 g/dl (31-36); Mean Corpuscular Hemoglobin 32 pg (27-31); Mean Corpuscular Volume 95 fL (80-94); Mean Platelet Volume 7 um3 (7.4-10.4); Red Blood Count 3.59 10^6/ul (4.0-5.4); Red Cell Distribution Width 14 % (10.5-15); White Blood Count 6.5 10^3/ul (3.5-10.8)
[2017-05-14 02:11] LABS: Albumin 3.7 g/dL (3.2-5.2); BUN/Creatinine Ratio 16.2 (8-20); Calcium 9.1 mg/dL (8.6-10.3); EGFR African American 98.2 (>60); EGFR Non-African American 76.3 (>60); Globulin 4.1 g/dL (2-4); Potassium 3.7 mmol/L (3.5-5.0); Total Bilirubin 0.4 mg/dL (0.2-1.0); Total Protein 7.8 g/dL (6.4-8.9)
[2017-05-14] MEDS ORDERED: Benzonatate CAP* 100 MG PO PRN (05:42)
[2017-05-14] MEDS ORDERED: Vancomycin(*) 1,000 MG in NS 0.9% 250 ML* 250 ML IVPB ONE (05:43)
[2017-05-14] MEDS ORDERED: Vancomycin per Pharmacy* NOTE FOLLOW UP PRN (05:50)
[2017-05-14] MEDS ORDERED: Azithromycin IV(*) 500 MG in NS 0.9% 250 ML* 250 ML IVPB SCH (06:00)
--- NOTE | 2017-05-14 08:01 | HP ---
CC: Dr. Walter; Dr. Escobar; Dr. Begum * HISTORY AND PHYSICAL: DATE OF ADMISSION: 05/14/17 CHIEF COMPLAINT: Coughing up blood. HISTORY OF PRESENT ILLNESS: The patient is a 61-year-old gentleman, recently admitted to [facility] for pneumonia on top of bronchiectasis, who said that after he finished his antibiotics for his last bout, he started having fever about 4 days afterwards. His temperatures range anywhere from [address] to 101. Then this past Saturday, he started cough up blood. At that point, it was only three tablespoons. However, last night at about 12: 30 a.m. he coughed up over a cup of blood. At that time, his temperature was 99.6. He had no chest pain. No shortness of breath. He also had blood coming from his nose, too. He notes he has a long history of sinus infections, and he has been had surgery for it in the past. The patient was supposed to have a bronchoscopy for his latest condition, but has not. PAST MEDICAL HISTORY: Significant for MS, asthma, bronchiectasis, COPD, psoriasis, and obstructive sleep apnea. PAST SURGICAL HISTORY: He had septoplasty in the past. MEDICATIONS: Current medications are been updated at this time. ALLERGIES: He has an allergies/adverse reaction to BACTRIM. FAMILY HISTORY: Mother had a history of MS. Father had a heart attack. SOCIAL HISTORY: Occasional alcohol. No tobacco. No recreational drug use. His surrogate decision maker is his , Maribell. REVIEW OF SYSTEMS: A 14-point review of systems was completed with the patient. All pertinent positives and negative are in the history of present illness, otherwise it is negative. PHYSICAL EXAMINATION GENERAL: Pleasant gentleman lying in bed, in no acute distress. VITAL SIGNS: Temperature 98.7 degrees, heart rate 91 beats per minute, respiratory rate 21 breaths per minute, pulse oximetry 96%, blood pressure 120/ 74. HEENT: Normocephalic and atraumatic. Pupils are equal, round and reactive to light. Moist mucous membranes. NECK: Supple. No JVD, bruits, palpable thyroid or lymphadenopathy. CHEST: Clear to auscultation and percussion bilaterally. CARDIOVASCULAR: S1, S2 appreciated. Regular rate and rhythm. ABDOMEN: Positive bowel sounds in all 4 quadrants. Soft, nontender, and nondistended. EXTREMITIES: No cyanosis, clubbing, or edema. +2 pulse bilaterally. NEUROLOGIC: Alert and oriented x3. Moves all extremities. SKIN: No rashes or abnormalities. LABORATORY DATA: White count 6.5, hemoglobin 11.4, hematocrit 34, and platelets 256. INR 0.94. Sodium 135, potassium 3.7, chloride 101, CO2 of 29, BUN 16, creatinine 2.99, glucose 146. Lactic acid 1.44. Chest x-ray shows no changes from prior chest x-ray. EKG shows normal sinus rhythm at 82 beats per minute, left axis deviation, left anterior hemiblock, incomplete right bundle branch block. ASSESSMENT AND PLAN: 1. Hemoptysis and epistaxis. Could be due to his bronchiectasis, pneumonia, and/or even his sinusitis. I will ask Pulmonary and ID to see him today. We will get a CT scan of his sinus. I will empirically start him on cefepime, Zithromax, and vancomycin because of his recent admission to the hospital. We will check sputum C and S urine for Legionella pneumococcal antigen. Lakesha Bird p.r.n. for cough. 2. Multiple sclerosis. We will resume medications as soon as we get the up-to - date medication list. 3. Fluids, electrolytes, and nutrition. Regular diet. 4. DVT prophylaxis. SCDs with hemoptysis. 5. The patient is full code. TIME SPENT: Over 75 minutes were spent on this H and P, more than 40 minutes of which were spent in direct [id number] contact with the patient in evaluation, physical exam, counseling, and coordination of care. [id number]/[facility] #: [id number] [facility]
--- NOTE | 2017-05-14 08:04 | RAD ---
INDICATION: Hemoptysis COMPARISON: Most recent comparison chest x-rays dated April 26, 2017 and CTA of the chest April 11, 2017 TECHNIQUE: PA and lateral views of the chest were obtained. FINDINGS: The heart and mediastinum are normal in size and contour. Similar to the previous chest x-ray, there is patchy density overlying the left lower lobe obscuring the left hemidiaphragm and causing left costophrenic angle blunting. The right lung is well aerated. Visualized bones are normal for the patient's age. There is no radiographic evidence of free air beneath the diaphragm IMPRESSION: PERSISTENT PATCHY DENSITY INVOLVING THE LEFT LOWER LUNG CORRESPONDING TO THE SOFT TISSUE/FLUID FILLED BRONCHIECTATIC AIRWAYS SEEN ON THE PREVIOUS CT EXAMINATION AND WITH LITTLE CHANGE IN APPEARANCE FROM THE PREVIOUS CHEST X-RAY.
[2017-05-14] MEDS: Cefepime(*) 1 GM in NS 0.9% 50 ML* 50 ML IVPB SCH ×2 (08:25→19:31)
--- NOTE | 2017-05-14 09:21 | PN ---
Subjective Date of Service: 05/14/17 Interval History: Epistaxis in triage and also in room while sitting up. Little cough, no chest pain or SOB. Occ sweats, low-grade temps. Objective Active Medications: Benzonatate (Tessalon Cap*) 200 mg PO TID PRN PRN Reason: COUGH Dimethyl Fumarate (Tecfidera(Nf)) 240 mg PO BID [facility] Cefepime HCl 1 gm/ Sodium (Chloride) 50 mls @ 100 mls/hr IVPB Q12H [facility] Last Admin: 05/14/17 08:25 Dose: 100 mls/hr Azithromycin 500 mg/ Sodium (Chloride) 250 mls @ 250 mls/hr IVPB Q24HR [facility] Pharmacy Consult (Vancomycin Per Pharmacy*) 1 note FOLLOW UP . PRN PRN Reason: PER PROTOCOL Vital Signs 05/14/17 05/14/17 05/14/17 06:00 06:07 06:32 Temperature 98.7 F 98.1 F Pulse Rate 91 83 Respiratory 21 15 Rate Blood Pressure 120/74 133/74 (mmHg) O2 Sat by Pulse 96 99 Oximetry Oxygen Devices in Use Now: None Appearance: Alert, sitting on the edge of his bed. In good spirits. Looks comfortable. Eyes: No Scleral Icterus Ears/Nose/Mouth/Throat: Clear Oropharnyx, Mucous Membranes Moist Neck: NL Appearance and Movements; NL JVP, No Thyroid Enlargement, Masses Respiratory: Symmetrical Chest Expansion and Respiratory Effort, Clear to Auscultation, Clear to Percussion Cardiovascular: NL Sounds; No Murmurs; No JVD, RRR, No Edema, - Extremities: No Edema, No Clubbing, Cyanosis, - Skin: No Rash or Ulcers, No Nodules or Sclerosis, - Neurological: Alert and Oriented x 3, NL Sensation Result Diagrams: 05/14/17 01:40 05/14/17 01:40 Microbiology and Other Data: Microbiology 05/14/17 06:40 Gram Stain - Final Sputum Expectorated Assess/Plan/Problems-Billing Assessment: - Patient Problems (1) Epistaxis Current Visit: Yes Status: Acute Code(s): R04.0 - EPISTAXIS SNOMED Code(s) : 24258700 Comment: Dr. Bernabe will see in PM 05/14. (2) Bronchiectasis Current Visit: No Status: Acute Code(s): J47.9 - BRONCHIECTASIS, UNCOMPLICATED SNOMED Code(s): 98713134 Comment: Continue antibiotics for now, likely can narrow coverage after Dr. Bernabe's evaluation. (3) Multiple sclerosis Current Visit: No Status: Acute Code(s): G35 - MULTIPLE SCLEROSIS SNOMED Code(s): 81788539 Comment: Continue dimethyl fumarate and interferon. (4) TANA (obstructive sleep apnea) Current Visit: No Status: Acute Code(s): G47.33 - OBSTRUCTIVE SLEEP APNEA ( ADULT) (PEDIATRIC) SNOMED Code(s): 19164941 Comment: Fup with his PCP.
[2017-05-14] MEDS ORDERED: Oxymetazoline 0.05% NASAL SPR* 15 ML BTL BOTH NARES PRN (09:24)
[2017-05-14] MEDS ORDERED: Lidocaine 4% TOPICAL* 50 ML TOP.SOLN TOPICAL PRN (09:25)
[2017-05-14] MEDS ORDERED: Silver Nitrate/Potassium Nitr* 1 EA STICK TOPICAL ONE (09:27)
--- NOTE | 2017-05-14 09:39 | RAD ---
INDICATION: Sinusitis epistaxes. COMPARISON: Comparison is made with a prior CT of the sinuses from January 08, 2013. TECHNIQUE: Contiguous axial sections of the axial images of the sinuses were obtained and reconstructed in the coronal and sagittal planes. FINDINGS: The patient is status post paranasal sinus surgery. There has been resection of the uncinate processes, medial superior wall of the maxillary sinuses and several ethmoid air cell septae. There is minimal mucosal thickening present within the ethmoid and maxillary sinuses. The frontal and sphenoid sinuses appear clear. There is mild to moderate deviation of the nasal septum toward the right side. The nasal passageways were otherwise clear. The posterior nasopharyngeal region appears to be within normal limits. IMPRESSION: STATUS POST PARANASAL SINUS SURGERY. THERE IS MINIMAL MUCOSAL THICKENING WITHIN THE ETHMOID AND MAXILLARY SINUSES OTHERWISE UNREMARKABLE STUDY.
[2017-05-14] MEDS: Azithromycin IV(*) 500 MG in NS 0.9% 250 ML* 250 ML IVPB SCH (09:45)
[2017-05-14] MEDS ORDERED: CMC:Escitalopram (NF) 10 MG TAB PO SCH ×2 (12:00→21:00)
[2017-05-14] MEDS: DIMETHYL FUMARATE 240 MG PO SCH ×2 (13:12→20:09)
--- NOTE | 2017-05-14 21:56 | CONS ---
CONSULTATION REPORT: DATE OF CONSULT: 05/14/17 REQUESTING PHYSICIAN: Dr. Estuardo Del Angel. CONSULTING SERVICE: Infectious Disease. REASON FOR CONSULT: Hemoptysis. IMPRESSION: 1. Intermittent low-grade fever and sweats with intermittent hemoptysis and more recently epistaxis. Chest x-ray shows patchy density in the left lower lung, which is seen with a fluid-filled bronchiectatic area on a previous CT scan, question vascular malformation or bleeding due to bronchiectasis, infection is a consideration including bacterial or atypical Mycobacterial or fungal. He had no improvement while on oral antibiotics and a recent sputum culture was no growth. No other sputum cultures have been sent here. Gram stain shows 2+ gram-positive diplococci and yeast. 2. Bronchiectasis. 3. BACTRIM allergy caused rash. 4. Multiple sclerosis. 5. Psoriasis. RECOMMENDATIONS: Give cefepime and azithromycin and stopping his vancomycin. Ear, nose, and throat is going to see him to evaluate for upper airway source of bleeding. Dr. Escobar, I had discussed the case with her earlier to ask her to consider bronchoscopy for cultures and look for vascular changes. HISTORY OF PRESENT ILLNESS: This is a 61-year-old man with bronchiectasis, admitted with hemoptysis. He has had intermittent fevers and low-grade fever up to 99.8, some chills with sweats. His cough has been less persistent over the last few days until yesterday, it became worse and he started coughing up large amounts of blood while he was sitting up in bed. He had had some bleeding through his nostrils earlier in the evening. Because of the large volume of blood, he came to the hospital, had a white count of 6000. He has been febrile. He is hemodynamically stable, started on vancomycin, cefepime, and azithromycin. He has had occasional old and new blood that he has coughed up today mingled with sputum. Sputum culture was sent as above. PAST MEDICAL HISTORY: 1. Bronchiectasis. 2. Multiple sclerosis. 3. Psoriasis. 4. COPD. 5. Obstructive sleep apnea. 6. Status post septoplasty. MEDICATIONS: 1. Azithromycin 500 mg daily. 2. Tessalon caplets. 3. Dimethyl fumarate. 4. Lexapro. 5. Cefepime 1 g every 12 hours. FAMILY HISTORY: No recurrent infections. SOCIAL HISTORY: He lives in [place]. No travel. No sick contacts. REVIEW OF SYSTEMS: All negative except as noted above to full review of systems. PHYSICAL EXAM: Vital Signs: Temperature is 36.7, heart rate 80, respiratory rate 15, blood pressure 133/74, O2 sat 99% on room air. General: He is awake, not in distress. HEENT: There is no conjunctival hemorrhage. There is no blood coming out of his nostrils. Posterior pharynx without lesions. Heart: Regular rate and rhythm without rubs, murmurs, or gallops. Lungs: Clear to auscultation bilaterally. Neck: There is no masses. Lymph Nodes: There is no cervical, supraclavicular, inguinal, axillary, or epitrochlear lymphadenopathy. Abdomen: Soft, nontender, nondistended. There is no splenomegaly. Skin: There is no rash or splinter hemorrhages. Musculoskeletal : There is no spine tenderness to palpation. There is no joint synovitis. DIAGNOSTIC STUDIES/LAB DATA: Creatinine 0.9. ALT 10. White blood cell count 6, hemoglobin 11, and platelets 256. Please see impressions and recommendations as outlined above, which I have discussed with Dr. Del Angel. Thank you for asking me to see Zeferino Greta in consultation. [id number]/[facility] #: [id number] MTDD
--- NOTE | 2017-05-14 22:14 | CONS ---
CONSULTATION REPORT: DATE OF CONSULT: 05/14/17 REQUESTING PHYSICIAN: Dr. Del Angel. CONSULTATION PERFORMED BY: Dr. Bernabe. REASON FOR CONSULTATION: Epistaxis. HISTORY OF PRESENT ILLNESS: The patient has been having some recurring epistaxis. He has been seeing blood from his nose and also been spitting it up. He has a bag of blood that he had spit out. He is on a baby aspirin, but otherwise has not been on any other blood thinners and really does not have a history of this happening, although it seems to have been going on for about a month now. He has some dry blood around his nostril, and on anterior rhinoscopy , unable to tell definitively where the bleeding is coming from. I packed his nose bilaterally with cottonoids impregnated with oxymetazoline and 4% lidocaine. After several minutes, I removed these. I did some silver nitrate cautery of some potential bleeding sites found in his septum bilaterally. ASSESSMENT: The patient has been having recurring epistaxis, for which I treated with silver nitrate cautery. RECOMMENDATIONS: I cannot be 100% sure I cauterized the correct site. He is not actively bleeding and it was not 100% definitive, so he might have some bleeding again. We discussed this. If he has further bleeding, he should be treated with some oxymetazoline nose spray, squeezing the nostril and sitting up in forward just a little bit. We talked about why people have nosebleeds and how to treat them and he has followup already scheduled in our office and he has been instructed to call sooner if needed. [id number]/[facility] #: [id number] MTDD
[2017-05-15] MEDS: DIMETHYL FUMARATE 240 MG PO SCH (08:31)
[2017-05-15] MEDS: Cefepime(*) 1 GM in NS 0.9% 50 ML* 50 ML IVPB SCH (08:31)
[2017-05-15] MEDS: Azithromycin IV(*) 500 MG in NS 0.9% 250 ML* 250 ML IVPB SCH (09:30)
--- NOTE | 2017-05-15 09:51 | PN ---
Subjective Date of Service: 05/15/17 Interval History: Frequent cough, blood-tinged creamy sputum. No pain, no SOB. Objective Active Medications: Benzonatate (Tessalon Cap*) 200 mg PO TID PRN PRN Reason: COUGH Dimethyl Fumarate (Tecfidera(Nf)) 240 mg PO BID [facility] Last Admin: 05/15/17 08:31 Dose: 240 mg Escitalopram Oxalate (Lexapro (Nf)) 10 mg PO BEDTIME [facility] Last Admin: 05/14/17 20:08 Dose: 10 mg Lidocaine HCl (Lidocaine 4% Topical*) 1 applic TOPICAL .SEE ORDER PRN PRN Reason: Dr. Bernabe's procedure Oxymetazoline HCl (Afrin 0.05% Nasal [place]*) 2 spray BOTH NARES BID PRN PRN Reason: epistaxis Vital Signs 05/14/17 05/14/17 05/14/17 14:52 15:46 19:55 Temperature 98.3 F 98.9 F 98.7 F Pulse Rate 89 86 91 Respiratory 16 19 20 Rate Blood Pressure 114/58 147/60 136/64 (mmHg) O2 Sat by Pulse 97 98 97 Oximetry 05/14/17 05/14/17 05/15/17 20:00 23:13 03:30 Temperature 98.8 F 98.4 F Pulse Rate 78 85 Respiratory 18 16 16 Rate Blood Pressure 118/53 124/55 (mmHg) O2 Sat by Pulse 98 96 Oximetry 05/15/17 07:16 Temperature 98.3 F Pulse Rate 74 Respiratory 16 Rate Blood Pressure 125/51 (mmHg) O2 Sat by Pulse 96 Oximetry Oxygen Devices in Use Now: None Appearance: Alert, sitting up in bed. In good spirits. Looks comfortable. Occ productive cough with blood-tinged sputum during my visit. Eyes: No Scleral Icterus Respiratory: Symmetrical Chest Expansion and Respiratory Effort, Clear to Auscultation, Clear to Percussion Extremities: No Edema, No Clubbing, Cyanosis, - Skin: No Rash or Ulcers, No Nodules or Sclerosis, - Result Diagrams: 05/14/17 01:40 05/14/17 01:40 Microbiology and Other Data: Microbiology 05/14/17 06:40 Gram Stain - Final Sputum Expectorated Assess/Plan/Problems-Billing Assessment: - Patient Problems (1) Epistaxis Status: Acute Code(s): R04.0 - EPISTAXIS SNOMED Code(s): 91676286 Comment: Discussed with Dr. Bernabe. He cauterized a few bleeding areas BL. He will fup pt after discharge. (2) Bronchiectasis Status: Acute Code(s): J47.9 - BRONCHIECTASIS, UNCOMPLICATED SNOMED Code(s) : 72255239 Comment: Discussed with Dr. Begum. Levofloxacin 500 mg daily x 10 days as outpt. Discussed with Dr. Escobar. She has scheduled an outpt bronchoscopy for next week. (3) Multiple sclerosis Status: Acute Code(s): G35 - MULTIPLE SCLEROSIS SNOMED Code(s): 53221944 Comment: Continue dimethyl fumarate and interferon. (4) TANA (obstructive sleep apnea) Status: Acute Code(s): G47.33 - OBSTRUCTIVE SLEEP APNEA (ADULT) (PEDIATRIC) SNOMED Code(s): 27320800 Comment: Fup with his PCP.
[2017-05-15] MEDS: guaiFENesin LIQ* 100 MG/5 ML UDC PO SCH ×2 (10:29→13:48)
[2017-05-15 13:42] VITALS: BP 112/53
--- NOTE | 2017-05-15 17:11 | CONS ---
PULMONARY CONSULTATION REPORT: DATE OF CONSULT: 05/15/17 CONSULTATION REQUESTED BY: Dr. Del Angel. REASON FOR CONSULT: Hemoptysis. HISTORY OF PRESENT ILLNESS: The patient is a 61-year-old male with history of hemoptysis in the past, bronchiectasis, multiple sclerosis, asthma/COPD, known to me from outpatient evaluation when he was admitted on 04/11/17 for evaluation of hemoptysis. The patient had similar episodes in the past, was seen by application packaging specialist at [facility], had bronchoscopy. Bleeding source was found to be chronic sinus issues with aspiration into the lungs. The patient during that hospitalization did have CT scan of the chest, which did reveal bronchiectasis with dilated airways and mucus filling in the left lower lobe bronchi. The patient was also treated for pneumonia at that time. The patient has chronic sinus issues and postnasal drip. He is on treatment for that for a very long time. The patient presented for evaluation of coughing up blood. The patient also had low-grade fevers 4 days prior to the admission with a T- max of 101. The patient was sitting up in his bed trying to go to sleep, then he started suddenly with blood coming out through his mouth. He also had some cough at that time; however, did not have cough during the day or few days prior to that episode. He denied chest pain, shortness of breath, dizziness. The patient has a history of pseudomonas pneumonia. The patient was also noted to have epistaxis and was seen by ENT. ENT has cauterized few vessels in his nose on the septum. The patient was also noted to have some old blood in the nares. The patient was seen and examined by me at bedside this morning. The patient reported improvement in the hemoptysis. He only coughed up total of a spoonful of blood all day today. He still continues to have mucus. Cough is slightly improved as per the patient. He was initiated on antibiotics, was seen by Infectious Disease, who also was treating him outpatient for his infection. No fevers were documented during his stay here. PAST MEDICAL HISTORY: 1. Multiple sclerosis. 2. Asthma/COPD. 3. Bronchiectasis. 4. Psoriasis. 5. Obstructive sleep apnea. PAST SURGICAL HISTORY: Septoplasty. MEDICATIONS: On admission: 1. Robitussin 10 mL p.o. four times a day. 2. Oxymetazoline nasal spray, 2 sprays both nares b.i.d. 3. Fish oil 1200 mg p.o. daily. 4. Nasonex 1 spray both nares daily. 5. Claritin 10 mg in the morning. 6. Vyvanse 30 mg q.a.m. 7. Lactobacillus 1 capsule daily. 8. Lexapro 10 mg daily. 9. Dimethyl fumarate 240 mg p.o. b.i.d. 10. Cholecalciferol 3000 units daily. ALLERGIES: BACTRIM. FAMILY HISTORY: Mother has a history of MS and father has a history of MO. SOCIAL HISTORY: Drinks alcohol, former smoker, has not been smoking currently. Has issues with alcohol abuse in the past. REVIEW OF SYSTEMS: All 14 systems were reviewed and as per HPI. PHYSICAL EXAM: The patient is sitting in bed, in no apparent distress. Vital Signs: Temperature 98.7, pulse 80 beats per minute, respiratory rate 16 per minute, O2 sat 98% on room air, blood pressure 112/53. HEENT: Pupils are equal and reactive to light, mucous membranes moist, old blood seen in the nares. Respiratory: Good air entry bilaterally, crackles at left base. Cardiovascular: S1, S2 present, regular. Abdomen: Soft, bowel sounds present, nontender, and nondistended. Extremities: Normal range of motion, no edema. Skin: No bruises or rash, no petechia. Musculoskeletal: Normal range of motion, no cyanosis or clubbing. DIAGNOSTIC STUDIES/LAB DATA: Laboratory work showed, elevated white count on admission, normalized currently; hemoglobin 11.4; hematocrit of 34; platelet count 256. INR 0.94. Sodium 135, potassium 3.7, chloride 101, bicarb 29, BUN 16, creatinine 0.99, glucose 146, lactic acid 1.4. Immunology: IgG elevated at 1900. The c-ANCA was negative, p-ANCA was positive, anti-MPO antibodies are being ordered. Thyroid peroxidase antibodies are within normal limits. Anticardiolipin IgM antibody was elevated. CD3 cells were slightly elevated. Sinus CT showed thickening of ethmoid and maxillary sinus mucosal lining, shows evidence of prior paranasal surgery. Otherwise, sinus has looked unremarkable. Chest x-ray on admission was personally reviewed by me that showed evidence of patchy airspace opacities in the left lower lung corresponding to the bronchiectasis noted on CT prior admission. IMPRESSION AND RECOMMENDATIONS: 61-year-old male with history of long-standing sinus issues, hemoptysis, epistaxis, bronchoscopy in the past did not reveal bleeding source endobronchially, CT chest with evidence of bronchiectasis in the left lower lobe. Hemoptysis versus epistaxis, unclear at this time. The patient was noted to have bleeding source from the nose that was cauterized by ENT, hemoptysis is improving, only had a spoonful of blood all day today. He is otherwise feeling better. He is also being treated with antibiotics at this time. He will be discharged home to complete course of antibiotics. He does have history of pseudomonas in airways in the past. Recent sputum cultures , however, was negative. The patient with recurrent hemoptysis and bronchiectasis, unclear if left lower lobe bronchiectasis is the source for his hemoptysis or it is secondary from upper airway. Will schedule the patient for bronchoscopy for next Saturday. Procedure was thoroughly discussed in detail with the patient. The patient is agreeable for the procedure. If he, however, develops another episode of massive hemoptysis, he needs to be transferred to facility with Thoracic Surgery backup. The patient might need selective intubation of right lung if that happens. If ENT source is the reason for his epistaxis and resultant coughing up blood, then he would need definitive ENT management. I have discussed thoroughly with the patient and his at bedside regarding recurrence and management of massive hemoptysis episode in the future. The patient and understand the risks and the need for emergency transfer to a tertiary facility. He would continue and complete his antibiotics until that time. He is hemodynamically stable at this time. The hemoptysis has been a long-term issue for him over years. I have also discussed that if it is proven that it is not ENT related and is from left lower lobe bronchiectasis that he would need surgery with resection of left lower lobe to prevent recurrent episodes in the future. I think the bronchoscopy that is planned for the next week would shed some light on this and also to localize the bleeding site or bleeding lung. I do not see any need for emergency bronchoscopy at this time nor it would offer any new information, but definitely if there is recurrence of this massive hemoptysis, he needs to be transferred to a tertiary care facility. PANCA was positive recently, myeloperoxidase antibodies testing was sent and is pending. I have discussed above with Dr. eDl Angel, who is also in agreement. Dr. Del Angel has made arrangements for the patient to be discharged home today. [id number]/[facility] #: [id number] KEREN
--- NOTE | 2017-05-16 01:35 | DS ---
CC: Dr. Walter; Dr. Escobar; Dr. Begum; Dr. Bernabe * DISCHARGE SUMMARY: DATE OF ADMISSION: 05/14/17 DATE OF DISCHARGE: 05/15/17 HISTORY OF PRESENT ILLNESS: This 61-year-old male presented with hemoptysis. He had been admitted here recently for pneumonia complicating bronchiectasis. He felt he had low-grade temperatures 4 days after finishing antibiotics at home , his temperature was high as 101. He states he coughed up a cup of blood the night before admission. His temperature was 99.6. In triage, he had blood coming out of his nose. He had more epistaxis in the hospital. The patient was admitted and started on intravenous antibiotics. He had CT scan of the sinuses, which showed no acute disease. He was seen in consultation by Dr. Bernabe. Dr. Bernabe performed anterior rhinoscopy. He packed his nose bilaterally with cottonoids impregnated with oxymetazoline and 4% lidocaine and then removed after few minutes and did some silver nitrite cautery of some potential bleeding sites found in the bilateral nasal septum. The patient was seen by Dr. Escobar and Dr. Begum. Dr. Escobar is scheduling bronchoscopy as an outpatient 1 week from the day of discharge. Dr. Begum recommended levofloxacin 500 mg daily for 10 days, which the patient will start as an outpatient. FINAL DIAGNOSES: 1. Epistaxis. 2. Bronchiectasis with hemoptysis. 3. Multiple sclerosis. 4. Obstructive sleep apnea. DISCHARGE MEDICATIONS: 1. Oxymetazoline 0.05% nasal spray 2 sprays both nares p.r.n. epistaxis. 2. Guaifenesin 10 mL 4 times a day. 3. Levofloxacin 500 mg daily for 10 days. 4. Mometasone nasal spray both nares daily. 5. Lactobacillus 1 capsule daily. 6. Delta-3 fatty acids 1200 mg daily. 7. Dimethyl fumarate 240 mg b.i.d. 8. Escitalopram 10 mg daily. 9. Vitamin D 3000 units daily. 10. Loratadine 10 mg daily. 11. Cetirizine 10 mg h.s. 12. Lisdexamfetamine 30 mg daily. [id number]/[facility] #: [id number] [facility]
== END 2017-05-15 15:15 | disposition home or self-care (01) ==
LOC: ED 01:16 → INTOOBSV 05:42 → MED 05:42
PROVIDERS: ADMIT Internal Medicine; ATTEND Internal Medicine
PROC: 0W3Q7ZZ Control Bleeding in Respiratory Tract, Via Natural or Artificial Opening (ICD-10-PCS; principal; 2017-05-14)
DX: R04.0 Epistaxis (principal); J47.9 Bronchiectasis, uncomplicated; G35 Multiple sclerosis; G47.33 Obstructive sleep apnea (adult) (pediatric); L40.9 Psoriasis, unspecified; Z79.82 Long term (current) use of aspirin; Z79.899 Other long term (current) drug therapy; Z88.2 Allergy status to sulfonamides
CPT/HCPCS: 36415; 70486; 71020; 80053; 83516; 83605; 85025; 85610; 87040; 87070; 87205; 87899; 93005; 96374; 96375; 96376; 99283; A9270-GY; G0378; J0456; J0692; J3370

== ENCOUNTER 2017-05-22 11:06 | Day surgery (SDC) | payer BC ==
[~2017-05-22 11:06] MED LIST: Buffered Lidocaine 0.9% SYRIN* 5 ML/SYR SYRINGE INTRADERM ONE; Dexamethasone IV* 4 MG/ML 1 ML (4 MG) IV SLOW PU ONE; Famotidine IV* 10 MG/ML 2 ML (20 mg) IV ONE
[2017-05-22] MEDS ORDERED: Dexamethasone IV* 4 MG/ML 1 ML (4 MG) ONE (11:09)
[2017-05-22] MEDS ORDERED: Famotidine IV* 10 MG/ML 2 ML (20 mg) ONE (11:09)
[2017-05-22] MEDS ORDERED: Lidocaine 1% INJ* 10 MG/ML 30 ML SDV ONE (11:30)
[2017-05-22] MEDS ORDERED: Lidocaine 2% PF* 10 ML AMP ONE (11:30)
[2017-05-22] MEDS ORDERED: Lidocaine 2% JELLY* 6 ML JELLY TOPICAL ONE (11:31)
[2017-05-22] MEDS ORDERED: fentaNYL* 50 MCG/ML 2 ML VIAL (100 MCG VIAL) ONE ×2 (12:35→13:49)
[2017-05-22] MEDS ORDERED: Midazolam* 1 MG/ML 2 ML VIAL (2 MG) ONE (12:35)
[2017-05-22] MEDS ORDERED: Propofol* 10 MG/ML 20 ML BTL IV PUSH ONE (12:36)
[2017-05-22] MEDS ORDERED: fentaNYL* 50 MCG/ML 2 ML VIAL (100 MCG VIAL) IV PRN (12:39)
[2017-05-22] MEDS ORDERED: DiMENhydriNATE IV* 50 MG/ML VIAL IV PUSH PRN (12:39)
[2017-05-22 15:11] VITALS: BP 121/59
[2017-05-23 10:59] LABS: Rheumatoid Factor <15 IU/mL (<15)
--- NOTE | 2017-05-23 15:08 | PRO ---
BRONCHOSCOPY REPORT: DATE OF PROCEDURE: 05/22/17 [facility] PROCEDURE PERFORMED BY: Elana Escobar MD ANESTHESIOLOGIST: Dr. Vides. Refer to anesthesiologist's note for further details. ANESTHESIA: General anesthesia. PROCEDURE PERFORMED: Bronchoscopy with bronchoalveolar lavage. INDICATION FOR PROCEDURE/PREPROCEDURAL DIAGNOSIS: Hemoptysis, airway evaluation. DESCRIPTION OF PROCEDURE: Informed consent was obtained from the patient prior to the procedure after all the risks and benefits were thoroughly explained. The patient has been having hemoptysis over the past few years, with recent bout of massive hemoptysis. Bronchoscopy was scheduled for airway inspection. Time-out was agreed on by attending staff. The patient was intubated with size 8.0 endotracheal tube. Bronchoscope was inserted through ET tube, positioning confirmed to be 2 cm above the level of jorden. Bronchoscope was then advanced into the right bronchial tree, which was then inspected. Copious amounts of secretions were noted and were suctioned out. Bronchoscope was then advanced into left bronchial tree. Evidence of mucosal erythema and redundant mucosa was noted. Mucosa was bleeding easily with suctioning. The patient noted to have fresh blood seeping through left lower lobe bronchus. 2 cc of 1% lidocaine was instilled into the airway. Bronchial washings were obtained from left side. No active bleeding was noted unless bleeding associated with suction trauma. Upper airway was inspected for lesions at the termination of the procedure. No lesions were noted in the nasopharynx or the oropharyngeal area. The patient tolerated the procedure well, had cough post procedure, and received fentanyl with improvement. [id number]/[facility] #: [id number] MTDD
[2017-05-23 16:27] LABS: Aspergillus IgG Ab 39.3 mg/L (<=102)
[2017-05-23 18:01] LABS: Aspergillus (Galactomannan) Ag <0.500 index (<0.5)
== END 2017-05-22 15:12 | disposition home or self-care (01) ==
LOC: OR 11:06
PROVIDERS: ATTEND Internal Medicine
DX: R04.2 Hemoptysis (principal); J47.9 Bronchiectasis, uncomplicated; G35 Multiple sclerosis; J44.9 Chronic obstructive pulmonary disease, unspecified; G47.33 Obstructive sleep apnea (adult) (pediatric); Z87.891 Personal history of nicotine dependence
CPT/HCPCS: 36415; 82164; 83516; 86003; 86038; 86141; 86225; 86431; 87070; 87102; 87116; 87205; 87206; 87305; 88112; J1100; J2001; J2250; J2704; J3010

== ENCOUNTER 2017-05-26 04:27 | Observation (INO) | payer BC ==
[2017-05-26] MEDS ORDERED: NS 0.9% 1000 ML* 1,000 ML IV ONE (05:03)
[2017-05-26] MEDS ORDERED: Acetaminophen TAB* 325 MG PO PRN (05:16)
--- NOTE | 2017-05-26 05:16 | ED ---
I, Suresh,Alex, scribed for Maral Crane MD on 05/26/17 at 0450 . Respiratory - HPI Summary HPI Summary: This 61 y/o male presents to ED for acute on recurrent hemoptysis tonight since an hour ago. Pt reports a bout of coughs, and had 3x table spoon of bright red blood. Prior EMR indicates that pt was evaluated and admitted for similar complaints about 2 weeks ago, during which pt was evaluated for hemoptysis vs epistaxis, and discharged with abx. PMHx includes bronchiectasis, recurrent sinus issues, and multiple sclerosis. Recent bronchoscopy done 3 days ago. Pt is not on blood thinner. Primary care involves Dr. Escobar. Result of bronchoscopy was reviewed with pt and present at bedside. Plan of care involving possible training mgr consult is discussed, and pt and are agreeable at this time. - History of Current Complaint Chief Complaint: EDShortnessOfBreath Stated Complaint: COUGHING UP BLOOD Time Seen by Provider: 05/26/17 04:41 Hx Obtained From: Patient, Family/Frame Bender - present at bedside, Medical Records Onset/Duration: Sudden Onset, Still Present Pain Intensity: 0 Character: Cough (Productive) Sputum Color: Red (Blood) Aggravating Factor(s): Nothing Alleviating Factor(s): Nothing Associated Signs and Symptoms: Hemoptysis - Allergy/Home Medications Allergies/Adverse Reactions: Allergies Allergy/AdvReac Type Severity Reaction Status Date / Time Soy Allergy Allergy Severe flushed Verified 05/22/17 11:15 skin Sulfamethoxazole Allergy Severe rash with Verified 05/22/17 11:15 w/Trimethoprim itching [From Bactrim] PMH/Surg Hx/FS Hx/Imm Hx Respiratory History: Reports: Hx Asthma - NO INHALER, Hx Chronic Obstructive Pulmonary Disease (COPD), Hx Sleep Apnea, Other Respiratory Problems/Disorders - pneumonia 03/2017 History: Reports: Hx Kidney Stones - 5-6 years ago xray of lungs showed stones Musculoskeletal History: Denies: Hx Rheumatoid Arthritis, Hx Osteoporosis Sensory History: Reports: Hx Contacts or Glasses - glasses to read Denies: Hx Cataracts, Hx Eye Injury, Hx Eye Prosthesis, Hx Glaucoma, Hx Legally Blind, Hx Macular Degeneration, Hx Vision Problem, Hx Deafness, Hx Hearing Aid Opthamlomology History: Reports: Hx Contacts or Glasses - glasses to read Denies: Hx Cataracts, Hx Eye Injury, Hx Eye Prosthesis, Hx Glaucoma, Hx Legally Blind, Hx Macular Degeneration, Hx Vision Problem Neurological History: Reports: Hx Nerve Disease - Multiple Sclerosis, Other Neuro Impairments/Disorders - MUTIPLE SCLEROSIS Psychiatric History: Reports: Hx Depression - mild - Cancer History Hx Chemotherapy: No - Surgical History Surgery Procedure, Year, and Place: 5-6 years ago. urothrotomy early . tonsillectomy as a child Hx Anesthesia Reactions: No Infectious Disease History: No Infectious Disease History: Reports: Traveled Outside the [place] in Last 30 Days - [place] - Family History Known Family History: Positive: Cardiac Disease, Other - Mother -- MS Family History: Father - [place] - Social History Alcohol Use: Weekly Hx Substance Use: No Substance Use Type: Reports: None Hx Tobacco Use: No Smoking Status (MU): Never Smoked Tobacco Review of Systems Positive: Skin Diaphoresis - "night sweats". Negative: Fever Negative: Chest Pain Positive: Other - Positive hemoptysis All Other Systems Reviewed And Are Negative: Yes Physical Exam Triage Information Reviewed: Yes Vital Signs On Initial Exam: Initial Vitals Temp Pulse Resp BP Pulse Ox 97.3 F 77 16 132/72 98 05/26/17 04:31 05/26/17 04:31 05/26/17 04:31 05/26/17 04:31 05/26/17 04:31 Vital Signs Reviewed: Yes Appearance: Positive: Well-Appearing, No Pain Distress Skin: Positive: Warm, Skin Color Reflects Adequate Perfusion, Dry Head/Face: Positive: Normal Head/Face Inspection Eyes: Positive: EOMI, BELKYS ENT: Positive: Pharynx normal Neck: Positive: Supple, Nontender Respiratory/Lung Sounds: Positive: Clear to Auscultation, Breath Sounds Present , Other - A tissue wet with jayson blood noted with pt.. Negative: Rales, Rhonchi Cardiovascular: Positive: RRR, Pulses are Symmetrical in both Upper and Lower Extremities. Negative: Murmur, Rub, Other - gallops Musculoskeletal: Positive: Strength/ROM Intact Neurological: Positive: Sensory/Motor Intact, Alert, Oriented to Person Place, Time Psychiatric: Positive: Affect/Mood Appropriate AVPU Assessment: Alert Diagnostics - Vital Signs Vital Signs Temp Pulse Resp BP Pulse Ox 05/26/17 04:34 97.3 F 77 16 132/72 98 05/26/17 04:31 97.3 F 77 16 132/72 98 - Laboratory Lab Statement: Any lab studies that have been ordered have been reviewed, and results considered in the medical decision making process. Disposition - Course Course Of Treatment: 61 yo male with recent history of hemoptysis due to bronchiectasis with a bronchoscope this last wed. Bronchoscope revealed left bronchi bleeding with suctioning, with neg cultures. This am the pt coughed out a tbs of blood, he has plans to go to either [facility] or a tertiary care center in [place] for possible lower lobe resection and so wants to be observed here if bleeding has stopped then he will be spending his time arranging for care at one of these facilities. has agreed to admit the pt - Diagnoses Provider Diagnoses: Cough with hemoptysis, Bronchiectasis - Physician Notifications Discussed Care Of Patient With: Zack Palomares Time Discussed With Above Provider: 05:08 Instructed by Provider To: Admit As Inpatient Discharge - Discharge Plan Condition: Stable Disposition: ADMITTED TO [facility] Referrals: Marlon Walter MD [Primary Care Provider] - The documentation as recorded by the Suresh major Soohyun accurately reflects the service I personally performed and the decisions made by me, Maral Crane MD.
[2017-05-26] MEDS ORDERED: Ondansetron INJ* 2 MG/ML VIAL IV PRN (05:19)
[2017-05-26 05:22] LABS: Hematocrit 34 % (42-52); Hemoglobin 11.6 g/dl (14.0-18.0); Mean Corpuscular HGB Conc 34 g/dl (31-36); Mean Corpuscular Hemoglobin 32 pg (27-31); Mean Corpuscular Volume 95 fL (80-94); Mean Platelet Volume 6 um3 (7.4-10.4); Red Blood Count 3.63 10^6/ul (4.0-5.4); Red Cell Distribution Width 15 % (10.5-15); White Blood Count 6.9 10^3/ul (3.5-10.8)
[2017-05-26 05:35] LABS: Albumin 3.5 g/dL (3.2-5.2); BUN/Creatinine Ratio 25.3 (8-20); EGFR African American 127.4 (>60); EGFR Non-African American 99.1 (>60); Globulin 3.8 g/dL (2-4); Potassium 3.8 mmol/L (3.5-5.0); Total Bilirubin 0.4 mg/dL (0.2-1.0); Total Protein 7.3 g/dL (6.4-8.9)
--- NOTE | 2017-05-26 05:42 | HP ---
H&P (Free Text) History and Physical: PCP: John Walter MD Date/Time of Evaluation: 05/26/2017 0520 CC: hemoptysis HPI: Mr Hernandes is a 61YO male HX recent pneumonia & bronchiectasis who underwent bronchoscopy via Byron Escobar MD pulmonology this past Saturday revealing friability of the bronchiectatic lung. This evening he coughed up ~1 tablespoon of blood and presented for evaluation. He has had a single episode of hemoptysis in the ED producing ~1cc of blood. He states that this is less than the amount he typically coughs up prior to spontaneous hemostasis occuring. He does have occasional night sweats and did so last night, but denies F/C, N/V, congestion, SOB, chest pain, light-headedness, or other issues. He finished a course of levofloxacin prescribed by Dr Escobar yesterday. PMedHx multiple sclerosis asthma bronchiectasis COPD psoriasis TANA Ambulatory Orders Nursing to reconcile. Cetirizine* [ZyrTEC 10 MG TAB*] 10 mg PO QPM 04/11/17 Cholecalciferol TAB* [Vitamin D TAB*] 3,000 units PO QAM 04/11/17 Dimethyl Fumarate(NF) [Tecfidera(NF)] 240 mg PO BID 04/11/17 Escitalopram (NF) [Lexapro 10 mg (NF)] 10 mg PO QPM 04/11/17 Lactobacillus Acidophilu (GG)* [Culturelle*] 1 cap PO QAM 04/11/17 Lisdexamfetamine (NF) [Vyvanse (NF)] 30 mg PO QAM 04/11/17 LoraTADine TAB(NF) [Claritin 10 MG TAB(NF)] 10 mg PO QAM 04/11/17 Mometasone NASAL (NF) [Nasonex (NF)] 1 spray BOTH NARES DAILY PRN 04/11/17 [place]-3 Fatty Acids (Nf) [Fish Oil (NF)] 1,200 mg PO BID 04/11/17 Oxymetazoline 0.05% NASAL SPR* [Afrin 0.05% NASAL SPRAY*] 2 spray BOTH NARES BID PRN #0 btl 05/15/17 Fluticasone-Salmeterol 250-50* [Advair Diskus 250-50*] 1 puff INH BID 05/21/17 Levofloxacin TAB* [Levaquin 500 Tab*] 500 mg PO QAM 05/21/17 guaiFENesin LIQ* [Robitussin*] 10 ml PO QID PRN 05/21/17 Allergies Soy Allergy Allergy (Severe, Verified 05/26/17 05:17) flushed skin tofu - if gets huge dose Sulfamethoxazole w/Trimethoprim [From Bactrim] Allergy (Severe, Verified 05:17) rash with itching SocHx: no tobacco or recreational drugs, occasional alcohol; lives with his ; full code status FamHx: Positive for MS, CAD, & HTN ROS: as above, otherwise reviewed and all were negative Constitutional: NAD, normally developed, well-nourished white male vitals: Vital Signs Temp 36.3 C 05/26/17 04:34 Pulse 77 05/26/17 04:34 Resp 16 05/26/17 04:34 BP 132/72 05/26/17 04:34 Pulse Ox 98 05/26/17 04:34 Intake & Output 05/25/17 05/25/17 05/26/17 11:59 23:59 11:59 Weight 68.946 kg HEENM: atraumatic; sclera/conjunctiva: non-icteric/clear; hearing: clinically intact; oropharynx: clear, mucosa moist Neck: soft tissue: non-tender; thyroid: normal Pulmonary: clear to auscultation bilaterally, good aeration, no accessory muscle use CV: RR/RR, normal S1S2, no carotid bruit, no jugular venous distention, 2+ B DP/ PT, no edema Abdominal: soft, non-distended, non-tender, no rebound/guarding/rigidity, normoactive bowel sounds, no hepatosplenomegaly or masses, no costovertebral angle tenderness Musculoskeletal: general: grossly intact Integumental: normal appearance and texture of exposed skin Psychiatric orientation: AA&O to PPS affect: calm mood: pleasant eye contact: good content: reliable responses: timely insight: good Testing: Lab Results 05/26/17 05/26/17 05/26/17 Range/Units 05:05 05:05 05:05 WBC 6.9 (3.5-10.8) 10^3/ul RBC 3.63 L (4.0-5.4) 10^6/ul Hgb 11.6 L (14.0-18.0) g/dl Hct 34 L (42-52) % MCV 95 H (80-94) fL MCH 32 H (27-31) pg MCHC 34 (31-36) g/dl RDW 15 (10.5-15) % Plt Count 346 (150-450) 10^3/ul MPV 6 L (7.4-10.4) um3 Neut % (Auto) 52.7 (38-83) % Lymph % (Auto) 29.7 (25-47) % [place] % (Auto) 17.2 H (1-9) % Eos % (Auto) 0.3 (0-6) % Baso % (Auto) 0.1 (0-2) % Absolute Neuts (auto) 3.7 (1.5-7.7) 10^3/ul Absolute Lymphs (auto) 2.1 (1.0-4.8) 10^3/ul Absolute Monos (auto) 1.2 H (0-0.8) 10^3/ul Absolute Eos (auto) 0 (0-0.6) 10^3/ul Absolute Basos (auto) 0 (0-0.2) 10^3/ul Absolute Nucleated RBC 0.01 10^3/ul Nucleated RBC % 0.1 INR (Anticoag Therapy) 0.87 L (0.89-1.11) Sodium 135 (133-145) mmol/L Potassium 3.8 (3.5-5.0) mmol/L Chloride 103 (101-111) mmol/L Carbon Dioxide 28 (22-32) mmol/L Anion Gap 4 (2-11) mmol/L BUN 20 (6-24) mg/dL Creatinine 0.79 (0.67-1.17) mg/dL Est GFR ( Amer) 127.4 (>60) Est GFR (Non-Af Amer) 99.1 (>60) BUN/Creatinine Ratio 25.3 H (8-20) Glucose 101 H (70-100) mg/dL Calcium 9.0 (8.6-10.3) mg/dL Total Bilirubin 0.40 (0.2-1.0) mg/dL AST 12 L (13-39) U/L ALT 11 (7-52) U/L Alkaline Phosphatase 46 (34-104) U/L Total Protein 7.3 (6.4-8.9) g/dL Albumin 3.5 (3.2-5.2) g/dL Globulin 3.8 (2-4) g/dL Albumin/Globulin Ratio 0.9 L (1-3) Blood Type Antibody Screen 05/26/17 Range/Units 05:05 WBC (3.5-10.8) 10^3/ul RBC (4.0-5.4) 10^6/ul Hgb (14.0-18.0) g/dl Hct (42-52) % MCV (80-94) fL MCH (27-31) pg MCHC (31-36) g/dl RDW (10.5-15) % Plt Count (150-450) 10^3/ul MPV (7.4-10.4) um3 Neut % (Auto) (38-83) % Lymph % (Auto) (25-47) % [place] % (Auto) (1-9) % Eos % (Auto) (0-6) % Baso % (Auto) (0-2) % Absolute Neuts (auto) (1.5-7.7) 10^3/ul Absolute Lymphs (auto) (1.0-4.8) 10^3/ul Absolute Monos (auto) (0-0.8) 10^3/ul Absolute Eos (auto) (0-0.6) 10^3/ul Absolute Basos (auto) (0-0.2) 10^3/ul Absolute Nucleated RBC 10^3/ul Nucleated RBC % INR (Anticoag Therapy) (0.89-1.11) Sodium (133-145) mmol/L Potassium (3.5-5.0) mmol/L Chloride (101-111) mmol/L Carbon Dioxide (22-32) mmol/L Anion Gap (2-11) mmol/L BUN (6-24) mg/dL Creatinine (0.67-1.17) mg/dL Est GFR ( Amer) (>60) Est GFR (Non-Af Amer) (>60) BUN/Creatinine Ratio (8-20) Glucose (70-100) mg/dL Calcium (8.6-10.3) mg/dL Total Bilirubin (0.2-1.0) mg/dL AST (13-39) U/L ALT (7-52) U/L Alkaline Phosphatase (34-104) U/L Total Protein (6.4-8.9) g/dL Albumin (3.2-5.2) g/dL Globulin (2-4) g/dL Albumin/Globulin Ratio (1-3) Blood Type A Positive Antibody Screen Negative Impression: 61M HX COPD, asthma, bronchiectasis, & recent pneumonia presents with recurrent hemoptysis DIAGNOSIS & PLAN Primary hemoptysis 2nd bronchiectasis : monitor : supportive care Secondary multiple sclerosis : no acute issues. COPD : albuterol nebs PRN : mometasone/formoterol depression : continue escitalopram once reconciled Admission Rational: observation for hemoptysis DVTp: SCDs Code Status: full HCP:
[2017-05-26] MEDS ORDERED: Fluticasone NASAL SPRAY 50MCG* 16 gm SPRAY BTL BOTH NARES PRN (06:06)
[2017-05-26] MEDS ORDERED: CMCS: LoraTADine TAB(NF) 10 MG TAB (AUTOSUB to CETIRIZINE) PO SCH (09:00)
[2017-05-26] MEDS ORDERED: Lisdexamfetamine(NF) 10 MG CAP PO SCH (09:00)
[2017-05-26] MEDS ORDERED: Dimethyl Fumarate(NF) 240 MG CAP PO SCH (09:00)
[2017-05-26 11:29] VITALS: BP 132/66
--- NOTE | 2017-05-26 14:17 | PN ---
Subjective Date of Service: 05/26/17 Interval History: Patient seen and examined at bedside. Pt states that he is feeling well and would like to go home. States that he is now coughing up more liriano colored mucous with pink tinge and small amount of blood. Pt states that this is the typical progression of his bleeding. Denies fever, chills, shortness of breath, chest discomfort, N/V/D. Family History: Unchanged from Admission Social History: Unchanged from Admission Past Medical History: Unchanged from Admission Objective Active Medications: Acetaminophen (Tylenol Tab*) 650 mg PO Q6H PRN Reason: FEVER/PAIN Cetirizine HCl (Zyrtec*) 10 mg PO QPM FREDERICK Reason: Protocol Citalopram Hydrobromide (Celexa Tab*) 20 mg PO QPM [place]ICK Dimethyl Fumarate (Tecfidera(Nf)) 240 mg PO BID FR[place]ICK Fluticasone Propionate (Flonase Nasal [place] 50mcg*) 1 spray BOTH NARES DAILY PRN Reason: Allergy Symptoms Lisdexamfetamine Dimesylate (Vyvanse(Nf)) 30 mg PO QAM [place] Loratadine (Claritin Tab(Nf)) 10 mg PO QAM [place] Ondansetron HCl (Zofran Inj*) 4 mg IV Q6H PRN Reason: NAUSEA Vital Signs 05/26/17 05/26/17 05/26/17 05:44 05:52 06:38 Temperature 98.1 F 98.1 F Pulse Rate 62 62 Respiratory 18 16 18 Rate Blood Pressure 136/63 136/63 (mmHg) O2 Sat by Pulse 100 100 Oximetry 05/26/17 05/26/17 07:33 11:29 Temperature 98.4 F 98.8 F Pulse Rate 68 80 Respiratory 16 16 Rate Blood Pressure 134/67 132/66 (mmHg) O2 Sat by Pulse 98 97 Oximetry Oxygen Devices in Use Now: None Appearance: NAD, sitting up in bed Ears/Nose/Mouth/Throat: Mucous Membranes Moist Respiratory: Symmetrical Chest Expansion and Respiratory Effort, Clear to Auscultation Cardiovascular: NL Sounds; No Murmurs; No JVD, RRR Abdominal: NL Sounds; No Tenderness; No Distention Extremities: No Edema Skin: No Rash or Ulcers Neurological: Alert and Oriented x 3, NL Muscle Strength and Tone Lines/Tubes/Other Access: Clean, Dry and Intact Peripheral IV - site benign Nutrition: Taking PO's Result Diagrams: 05/26/17 05:05 05/26/17 05:05 Assess/Plan/Problems-Billing Assessment: Mr. Hernandes is a 61 yo male with PMH significant for MS, asthma, COPD, TANA and bronchiectasis who presented to the emergency room with complaints of hemoptysis. - Patient Problems (1) Bronchiectasis Code(s): J47.9 - BRONCHIECTASIS, UNCOMPLICATED SNOMED Code(s): 21660969 Comment: - With hemoptysis, almost resolved. - Completed 10 day course of Levofloxacin (2) Multiple sclerosis Code(s): G35 - MULTIPLE SCLEROSIS SNOMED Code(s): 05518312 Comment: - Continue dimethyl fumarate (3) COPD (chronic obstructive pulmonary disease) Code(s): J44.9 - CHRONIC OBSTRUCTIVE PULMONARY DISEASE, UNSPECIFIED SNOMED Code(s): 35949049 Comment: - No signs of acute sxacerbation at this time - Continue PRN albuterol nebs and advair (4) Depression Code(s): F32.9 - MAJOR DEPRESSIVE DISORDER, SINGLE EPISODE, UNSPECIFIED SNOMED Code(s): 87344483 Comment: - Continue escitalopram (5) TANA (obstructive sleep apnea) Code(s): G47.33 - OBSTRUCTIVE SLEEP APNEA (ADULT) (PEDIATRIC) SNOMED Code(s): 32438452 Comment: - Followup with his PCP. (6) DVT prophylaxis Code(s): PTC8910 - SNOMED Code(s): 463247303 Comment: - TEDandrade (7) Full code status Code(s): Z78.9 - OTHER SPECIFIED HEALTH STATUS SNOMED Code(s): 324119814 Status and Disposition: OBV. Stable for discharge to home today.
[2017-05-26] MEDS ORDERED: Citalopram TAB* 20 MG PO SCH (18:00)
[2017-05-26] MEDS ORDERED: Cetirizine* 10 MG TAB PO SCH (18:00)
--- NOTE | 2017-05-27 09:47 | DS ---
CC: Dr. Escobar; Dr. Marlon Walter * DISCHARGE SUMMARY: DATE OF ADMISSION: 05/26/17 DATE OF DISCHARGE: 05/26/17 ATTENDING PHYSICIAN: Leann Coy MD * (dictated by Ronn Dumont NP.). PRIMARY CARE PROVIDER: Dr. Marlon Walter. PRIMARY DIAGNOSIS: Hemoptysis secondary to bronchiectasis. SECONDARY DIAGNOSES: 1. Multiple sclerosis. 2. Asthma. 3. Chronic obstructive pulmonary disease. 4. Obstructive sleep apnea. DISCHARGE MEDICATIONS: Continued home medications. 1. Nasonex 1 spray to both nares daily as needed for allergy symptoms. 2. Roz[place]-3 at 1200 mg oral twice daily. 3. Lactobacillus one capsule oral every morning. 4. Vyvanse 30 mg oral every morning. 5. Claritin 10 mg oral every morning. 6. Lexapro 10 mg oral every evening. 7. Advair Diskus 250/50 one puff inhalation twice daily. 8. Zyrtec 10 mg oral every evening. 9. Vitamin D 3000 units oral every morning. 10. Dimethyl fumarate 240 mg oral twice daily. HISTORY OF PRESENT ILLNESS: Mr. Hernandes is a 61-year-old male with a past medical history significant for multiple sclerosis, COPD, TANA, asthma, bronchiectasis, and recent pneumonia, who had a bronchoscopy with Dr. Escobar on May 22, revealing friability of the bronchiectatic lung. The patient reports last evening coughing up some jayson blood and decided to present to the emergency room for evaluation. The patient also had one single episode of hemoptysis in the emergency room producing approximately 1 cc of blood. The patient stated that this was less in amount than he typically coughs up prior to spontaneous hemostasis occurring. The patient reported occasional night sweats, but denied any fever, chills, nausea, vomiting, congestion, shortness of breath, chest pain, lightheadedness, or other issues. He had completed his course of Levaquin prescribed by Dr. Escobar on May 25. The hospitalists were asked to evaluate the patient for admission. While in the hospital, the patient continued to produce a liriano-colored mucus with minimal amounts of jayson blood. The patient felt that he would continue to follow his normal course with this spontaneous hemostasis of his hemoptysis and he was requesting to be discharged. Mr. Hernandes is stable for discharge to home today. Vital signs are as follows: Temperature 98.8, heart rate 80, respiratory rate 16, O2 sat 97% on room air, blood pressure 132/66. DISCHARGE PLAN: Mr. Hernandes will be discharged to home today. ACTIVITY: As tolerated. DIET: He will be on a regular diet. FOLLOWUP: The patient has been encouraged to keep his followup appointment with his primary care provider, Dr. Walter, for May 31, in addition to his followup appointment with Dr. Escobar on May 29. He also has an appointment with Dr. Johns on May 30, all of which he has been encouraged to maintain. The patient has been continued on his previous home medications. The patient has been asked to return to emergency room for any chest pain, shortness of breath or recurrence of hemoptysis that does not spontaneously resolve. This is a summarized report of a complex medical history and hospital stay. For further details, please see the entire medical record. TIME SPENT: Time for this discharge was approximately 45 minutes, greater than one half of that was spent with the patient and discussing discharge plans and instructions. CONDITION ON DISCHARGE: Stable. RONN DUMONT NP [id number]/[facility] #: [id number] KEREN
== END 2017-05-26 15:30 | disposition home or self-care (01) ==
LOC: ED 04:27 → MED 05:12
PROVIDERS: ADMIT Hospitalist; ATTEND Internal Medicine
DX: J47.9 Bronchiectasis, uncomplicated (principal); R04.2 Hemoptysis; G35 Multiple sclerosis; J44.9 Chronic obstructive pulmonary disease, unspecified; G47.33 Obstructive sleep apnea (adult) (pediatric); L40.9 Psoriasis, unspecified; J45.909 Unspecified asthma, uncomplicated
CPT/HCPCS: 36415; 80053; 85025; 85610; 86850; 86900; 86901; 96374; 96375; 99282; A9270-GY; G0378

== ENCOUNTER 2017-08-13 14:34 | Day surgery (SDC) | payer BC ==
--- NOTE | 2017-08-07 22:33 | HP ---
CC: Dr. Marlon Walter; Dr. Elana Escobar * HISTORY AND PHYSICAL: DATE OF SURGERY: 08/13/17 ATTENDING PHYSICIAN: Dr. Isaias Lundberg * (DICTATED BY BERNA GALVAN) PRIMARY CARE PHYSICIAN: Marlon Walter MD CHIEF COMPLAINT: Bilateral inguinal hernia. HISTORY OF PRESENT ILLNESS: Mr. Hernandes is a pleasant 61-year-old gentleman who was seen in our office back in May of this year to discuss hernia repair. The patient apparently has a history of bilateral inguinal hernia that he had for years and started lately to produce more symptoms. He described more dull ache and pain in both groin areas especially after prolonged standing or lifting heavy weight more prominent on the left side with increased bulging, but denies any obstructive symptoms. He denies any nausea, vomiting, changes in bowel habits, urinary symptoms or testicular pain. He was seen initially by Dr. Lundberg back in May of this year and was found on exam to have bilateral inguinal hernia; however, due to some pulmonary issues that the patient had back then, surgery was postponed until a further date. The patient apparently was admitted to the hospital back in 04/11/17 for evidence of hemoptysis. He had similar episode in the past and was evaluated by a drywaller at [place] and had screening bronchoscopy and was found to have a bleeding source in his sinuses. He was seen by ENT and also was evaluated for recurrent hemoptysis and had sinus surgery back then. He was admitted back at [facility] in March with recurrent hemoptysis for which he had consultation by Dr. Escobar. The patient was found to have other bleeding sources related to his hemoptysis as well as chronic cough and sputum production related to longstanding history of bronchiectasis. The patient had a bronchoscopy by Dr. Escobar and multiple biopsies and washout were done. He was treated for what appears to be pneumonia caused by pseudomonas and then eventually was referred to [facility] for evidence of bronchiectasis. The patient went to the [facility] over the past 2 months and had 2 bronchoscopies on separate occasion due to his longstanding history of bronchiectasis. Again, multiple biopsies and washout were done revealing no evidence of malignancy or active infection. However, the patient has been maintained on a daily dose of any antibiotic, I believe doxycycline, to be taken daily for the next 12 months. He has been followed by Dr. Begum for infectious disease point of view. He reports a significant improvement of his respiratory issues over the past few weeks. He was seen frequently by his primary care physician as well as Infectious Disease and Dr. Escobar and was found to be relatively stable clinically. He returned to the office today to discuss hernia repair and obtained a letter for medical clearance from [facility] labeled him as being low risk to undergo general anesthetic. From hernia standpoint, the patient reports no significant changes since his last office visit in May. He still notice more bulging on the left side with increasing pain upon prolonged standing or weightlifting, but denies any changes in bowel habits or bleeding per rectum. He has taken his medication regularly and he is breathing better. Denies any significant cough or sputum production. Again, he has been taking doxycycline 100 mg on a daily basis and he is supposed to be on it for the next 12 months. We saw the patient in the office today for a preoperative visit and to discuss a laparoscopic bilateral inguinal hernia repair to be performed by Dr. Lundberg on a later date this month. PAST MEDICAL HISTORY: As mentioned above, significant for bronchiectasis and chronic productive cough for which he had multiple bronchoscopies at [facility] and most recently twice at [facility]. He also has a history of asthma, COPD, psoriasis and obstructive sleep apnea. PAST SURGICAL HISTORY: Significant for septoplasty as well as sinus surgery and tonsillectomy in childhood. He also had multiple bronchoscopies as mentioned, above most recently at [facility]. CURRENT MEDICATIONS: His medications at home include: 1. Mometasone furoate 50 mcg 2 sprays in each nostril daily as needed for shortness of breath. 2. Culturelle 1 by mouth daily. 3. Dimethyl fumarate 240 mg b.i.d. 4. Escitalopram oxalate 10 mg p.o. daily. 5. Vitamin D3 1000 units 3 tablets a day. 6. Loratadine 10 mg 1 tablet daily. 7. Xylitol as needed. 8. Vyvanse 30 mg 1 tablet daily. 9. Azithromycin 250 mg 1 tablet for chronic therapy of COPD. 10. Sodium chloride 3% twice daily. 11. Albuterol inhaler twice daily. 12. Melatonin 3 mg 1 tablet q.h.s. for insomnia. 13. Tecfidera 240 mg twice daily. ALLERGIES: He is allergic to BACTRIM. FAMILY HISTORY: Noncontributory. SOCIAL HISTORY: The patient is , lives with his . He is self- employed. He has never smoked and occasionally consumes alcohol. REVIEW OF SYSTEMS: See HPI, otherwise negative. He denies any headache, dizziness, blurred vision, or double vision. No chest pain, shortness of breath , any COPD or wheezing exacerbation. No back pain, flank pain, dysuria, hematuria, or urinary frequency. No nausea, vomiting, abdominal pain or changes in bowel habits. No fever, chills, night sweats, or recent weight loss. PHYSICAL EXAMINATION GENERAL: He is a pleasant, healthy-appearing, middle-aged gentleman, appears in no distress or discomfort at the time of his office visit. VITAL SIGNS: Revealed temperature of 97.7, blood pressure of 132/82, pulse of 84, he weighs 155 pounds on a 5 feet 9 inch frame with BMI of 23. HEENT: Sclerae anicteric. PERRLA. EOMs intact. Oropharynx is pink, moist with no exudate. NECK: Supple. Trachea midline. No cervical adenopathy, thyromegaly, or JVD. LUNGS: Clear to auscultation bilaterally. There are no rales, wheezes, or rhonchi noted. HEART: Regular rate and rhythm. Normal S1, S2 without rubs, murmurs, or gallops. BACK: Normal curvature. No CVA tenderness. ABDOMEN: Soft, nontender, and nondistended. The patient was examined in standing and a supine position. On a standing position, there is bilateral inguinal hernias noted more prominent on the left side, moderate size and nontender on exam. It is easily reducible on both sides. The patient was examined again in the supine position and hernia was already reduced by itself. No scrotal swelling or testicular tenderness. EXTREMITIES: Without cyanosis, clubbing, or edema. RECTAL: Exam deferred at this time. NEUROLOGIC: Grossly intact. IMPRESSION: A 61-year-old gentleman with bilateral inguinal hernias and longstanding history of bronchiectasis, status post multiple bronchoscopies most recently at [facility]. PLAN: I went on and discussed with the patient his exam finding. We also went through his medical record and a most recent documentation from [facility]. He provided medical clearance letter from the head of the respiratory institute at the [facility], who cleared Mr. Hernandes to undergo surgery under general anesthetic describing him as being low risk to have any pulmonary complications. However, if he experience any flare ups of his bronchiectasis prior to the surgery that we would likely delay or postpone it until a later date. The patient appears to be clinically stable and he describe no active exacerbation of his COPD or shortness of breath at this time. He will be scheduled for a laparoscopic bilateral inguinal hernia repair with mesh by Dr. Lundberg to be performed at a later date this month. The rationale indications, risks, and benefits of surgery were discussed with him today. Risks include, but not limited to infection, bleeding, or injury to adjacent structures. He appears to be well informed and wishes to proceed as outlined. Again, all his documentation and medical clearance is available at this time and I see no need to repeat any chest x-rays or laboratory workup at this point. We will follow him up accordingly. BERNA GALVAN [id number]/[facility] #: [id number] KEREN
[~2017-08-13 14:34] MED LIST changes: -Dexamethasone IV* 4 MG/ML 1 ML (4 MG) IV SLOW PU ONE; +Dexamethasone TAB* 4 MG PO ONE; +DiMENhydriNATE IV* 50 MG/ML VIAL IV PUSH PRN; +Levalbuterol 0.63MG/3ML NEB* UNIT OF USE INH PRN; +Morphine INJ* 2 MG/ML 1 ML CARPUJECT IV PRN; +PROCHLORPERAZINE INJ 5 MG/ML 2 ML VIAL IV PRN; +fentaNYL* 50 MCG/ML 2 ML VIAL (100 MCG VIAL) IV PRN; +oxyCODONE/Acetamin 5/325 MG* TAB PO PRN
[2017-08-13] MEDS ORDERED: Famotidine IV* 10 MG/ML 2 ML (20 mg) ONE (14:48)
[2017-08-13] MEDS ORDERED: Dexamethasone TAB* 4 MG ONE (14:49)
[2017-08-13] MEDS ORDERED: ceFAZolin 2 GM PREMIX (*) 2 GM/50 ML BAG IVPB ONE (14:49)
[2017-08-13] MEDS ORDERED: Buffered Lidocaine 0.9% SYRIN* 5 ML/SYR SYRINGE ONE (14:54)
[2017-08-13] MEDS ORDERED: Midazolam* 1 MG/ML 2 ML VIAL (2 MG) ONE (16:38)
[2017-08-13] MEDS ORDERED: KETAMINE HCL* 50 MG/ML 10 ML VIAL ONE (16:38)
[2017-08-13] MEDS ORDERED: fentaNYL* 50 MCG/ML 2 ML VIAL (100 MCG VIAL) ONE ×3 (16:38→20:05)
[2017-08-13] MEDS ORDERED: Bupivacaine 0.25% SDV* 30 ML ONE (16:57)
[2017-08-13] MEDS ORDERED: Propofol* 10 MG/ML 20 ML BTL IV PUSH ONE (17:36)
[2017-08-13] MEDS ORDERED: Ondansetron INJ* 2 MG/ML VIAL ONE (17:36)
[2017-08-13] MEDS ORDERED: Lidocaine 2% PF * 5 ML VIAL ONE (18:10)
[2017-08-13] MEDS ORDERED: Lidocaine 2% PF* 10 ML AMP ONE (18:10)
[2017-08-13] MEDS ORDERED: Glycopyrrolate IV* 0.2 MG/ML 1 ML VIAL ONE (18:26)
[2017-08-13] MEDS ORDERED: oxyCODONE/Acetamin 5/325 MG* TAB PO PRN (18:43)
[2017-08-13] MEDS ORDERED: oxyCODONE/Acetamin 5/325 MG* TAB ONE (20:04)
[2017-08-13 20:33] VITALS: BP 128/70
--- NOTE | 2017-08-14 04:36 | OP ---
CC: Marlon Walter MD; Elana Escobar MD* OPERATIVE REPORT: DATE OF OPERATION: 08/13/17 - [facility] DATE OF : 51 SURGEON: Dr. Lundberg. GLUE DRIER OPERATOR: BERNA Aviles ANESTHESIOLOGIST: Suleiman Delatorre MD ANESTHESIA: General endotracheal. PRE-OP DIAGNOSIS: Bilateral inguinal hernias. POST-OP DIAGNOSIS: Bilateral inguinal hernias. OPERATIVE PROCEDURE: Laparoscopic preperitoneal bilateral inguinal hernias with mesh. ESTIMATED BLOOD LOSS: Minimal. IV FLUIDS: Crystalloids. SPECIMENS: None. DRAINS: None. COMPLICATIONS: None. COUNTS: The instrument, needle, and sponge counts were correct. DESCRIPTION OF PROCEDURE: The patient was brought to the operating room and placed on the table supine. Sequential compression devices were placed on both lower extremities. General anesthesia was administered. A Camilo catheter was placed. He was positioned and padded appropriately and his abdomen was prepped and draped in the usual sterile fashion. Time-out was performed. Local anesthetic was infiltrated into the skin and soft tissue prior to making each incision. A curvilinear infraumbilical incision was created and the rectus sheath was identified to the left of midline and it was incised transversely. The underlying rectus muscle was retracted laterally. Then, a preperitoneal balloon dissector was positioned down to the level of pubic symphysis and insufflated under direct visualization. The balloon dissector was then removed and replaced with a 12-mm blunt port. Carbon dioxide was insufflated to a pressure of 12 mmHg and then two additional 5-mm trocars were placed in the lower midline. A dissection proceeded initially on the right side , identifying the pubic symphysis, Darryl's ligament, inferior epigastric vessels and maintaining these anteriorly. There was a direct inguinal hernia noted. The peritoneal edge was identified and the cord structures were freed from this. This was dissected well back from the area of the deep ring. Dissection proceeded lateral to the anterior superior iliac spine. The dissection was then turned to the left side and again dissection proceeded medially to lateral identifying the pubic symphysis, Darryl's ligament, inferior epigastric vessels, and there was no direct hernia noted. There was a large indirect inguinal hernia noted, and the sac was reduced in its entirety. There were several tears in the sac, which were closed with endoscopic clip placement and ultimately by twisting the sac upon itself and then ligating the base with the Endoloop with a 2- 0 Surgipro. The dissection again proceeded laterally to the anterior superior iliac spine. The repair of the hernias was each performed with the Bard 3D Max large size patch. The left-sided patch was positioned into the preperitoneal space and positioned to cover direct, indirect , and femoral spaces and the patch was secured with a CapSure tacker to the pubic tubercle, Darryl's ligament, anterior musculature medially and single tack placed laterally well above the inguinal ligament. The repair was performed in a similar fashion on the right side with good overlap of the meshes in the midline. The space was allowed to desufflate under direct visualization. There was noted to be intraperitoneal gas and therefore, the 12- mm port was repositioned intraperitoneally and inspection of the peritoneum revealed that there was a small rent on the right side and this was subsequently closed with endoscopic clip placement. Inspection on the left side revealed no exposed mesh. The gas was released from the abdomen and the preperitoneal space and then subsequently, the ports were removed. The umbilical site was closed in two layers with 0 Polysorb to close the posterior and anterior rectus sheath. The skin incisions were closed with 4-0 Monocryl in subcuticular fashion. Steri-Strips were applied. The patient tolerated the procedure well, was extubated and transferred to recovery room in stable condition. [id number]/[facility] #: [id number] KEREN
== END 2017-08-13 21:06 | disposition home or self-care (01) ==
LOC: OR 14:34
PROVIDERS: ATTEND Surgery
DX: K40.20 Bilateral inguinal hernia, without obstruction or gangrene, not specified as recurrent (principal); J44.9 Chronic obstructive pulmonary disease, unspecified; G47.33 Obstructive sleep apnea (adult) (pediatric); J47.9 Bronchiectasis, uncomplicated; Z88.1 Allergy status to other antibiotic agents
CPT/HCPCS: A9270-GY; C1776; C1781; J0690; J2001; J2250; J2405; J2704; J3010; J8540

== ENCOUNTER 2017-09-22 11:36 | Inpatient (IN) | payer BC ==
[2017-09-22] MEDS ORDERED: Aspirin Low Dose CHEW TAB* 81 MG PO ONE (11:48)
--- NOTE | 2017-09-22 12:33 | RAD ---
INDICATION: Cough and chest pain COMPARISON: Similar chest x-ray dated May 14, 2017 TECHNIQUE: PA and lateral views of the chest were obtained. FINDINGS: The heart and mediastinum are normal in size and contour. There is interval appearance of density overlying the left lung base. On the lateral view chest x-ray this appears to be localized to the left lower lobe. The right lung is grossly clear. Visualized bones are normal for the patient's age. There is no radiographic evidence of free air beneath the diaphragm IMPRESSION: DENSITY OBSCURING THE LEFT LOWER LUNG COULD BE PNEUMONIA IN THE CORRECT CLINICAL SETTING. A FOLLOW-UP CHEST X-RAY AFTER AN APPROPRIATE COURSE OF THERAPY IS ADVISED TO ASCERTAIN RESOLUTION.
[2017-09-22] MEDS ORDERED: Levofloxacin 750 MG IVPREMIX(* 750 MG/150 ML BAG IVPB ONE (13:17)
[2017-09-22 13:26] LABS: Hematocrit 37 % (42-52); Hemoglobin 12.5 g/dl (14.0-18.0); Mean Corpuscular HGB Conc 34 g/dl (31-36); Mean Corpuscular Hemoglobin 31 pg (27-31); Mean Corpuscular Volume 91 fL (80-94); Mean Platelet Volume 7 um3 (7.4-10.4); Red Blood Count 4.05 10^6/ul (4.0-5.4); Red Cell Distribution Width 14 % (10.5-15); White Blood Count 12.2 10^3/ul (3.5-10.8)
[2017-09-22 14:04] LABS: Albumin 3.8 g/dL (3.2-5.2); BUN/Creatinine Ratio 16.8 (8-20); Calcium 9.5 mg/dL (8.6-10.3); EGFR African American 95.9 (>60); EGFR Non-African American 74.6 (>60); Globulin 4.1 g/dL (2-4); Potassium 3.9 mmol/L (3.5-5.0); Total Bilirubin 0.5 mg/dL (0.2-1.0); Total Protein 7.9 g/dL (6.4-8.9)
[2017-09-22] MEDS ORDERED: Iohexol 350* (CONTRAST) 500 ML MDV IV ONE (14:10)
[2017-09-22 14:27] LABS: Magnesium 2.1 mg/dL (1.9-2.7)
[2017-09-22 14:35] LABS: TSH (Thyroid Stimulating Horm) 2.06 mcIU/mL (0.34-5.60)
[2017-09-22 14:37] LABS: T4 7.6 mcg/mL (6.09-12.23)
--- NOTE | 2017-09-22 14:44 | RAD ---
INDICATION: Altered mental status COMPARISON: Similar CTA of the chest dated April 11, 2017 TECHNIQUE: Axial source images were acquired following the administration of 65 mL Omnipaque 300 [address] angiographic technique. Coronal and sagittal reconstructed images were constructed and reviewed. FINDINGS: There there are no filling defects in the pulmonary arteries to indicate acute pulmonary embolic disease. In the anterior aspect of the left upper lobe there is a pulmonary mass measuring 3.5 x 3.4 cm in the axial plane. There is plugging of the left lower lobe bronchus extending into the segmental branches of the lobe. The heart is normal in size. There is no evidence of pericardial effusion. There is no evidence of aortic aneurysm or dissection. There is a preaortic lymph node enlarged up to 1.4 cm and short access dimension increased from 8 mm on the previous CT examination. A subcarinal lymph node is ill-defined but measures approximately 1.3 x 2.5 cm in the axial plane, increased from the previous CTA. Hypodensity of the T5 vertebral body is consistent with hemangioma. The remaining visualized bones are intact. There are no destructive bone lesions. Degenerative changes of the thoracic spine includes loss of intervertebral disc height and mild marginal osteophyte formation. Limited views of the upper abdomen show no abnormalities. IMPRESSION: 1. No CT of evidence of pulmonary embolism. 2. There is persistent bronchiectasis and plugging of the bronchi and bronchioles involving the left lower lobe without significant change compared to the April 11, 2017 CT examination. 3. There has been interval appearance of a left upper lobe mass measuring 3.3 x 3.5 cm in the axial plane as well as interval development of mediastinal lymphadenopathy. Differential includes neoplasm, inflammation or infection.
[2017-09-22] MEDS ORDERED: Chlorpheniramine Maleate TAB* 4 MG PO PRN (15:33)
[2017-09-22] MEDS ORDERED: CMC Melatonin (NF) 3 MG TAB PO PRN (15:33)
[2017-09-22] MEDS ORDERED: cefTRIAXone VIAL(*) 1,000 MG in D5W 50 ML BAG* 50 ML IVPB SCH (16:00)
[2017-09-22] MEDS: NS 0.9% 1000 ML* 1,000 ML IV SCH (17:31)
[2017-09-22] MEDS ORDERED: Lactobacillus Acidophilu (GG)* 1 CAP CAP PO SCH (18:00)
[2017-09-22] MEDS ORDERED: Cetirizine* 10 MG TAB PO SCH (18:00)
[2017-09-22] MEDS ORDERED: CMC Escitalopram (NF) 10 MG TAB PO SCH (18:00)
[2017-09-22 18:26] LABS: Urine Bacteria Absent (Absent); Urine Bilirubin Negative (Negative); Urine Glucose Negative (Negative); Urine Nitrite Negative (Negative)
--- NOTE | 2017-09-22 19:46 | HP ---
CC: Dr. Marlon Walter; Dr. Begum * HISTORY AND PHYSICAL: DATE OF ADMISSION: 09/22/17 ATTENDING PHYSICIAN: Dr. Abel Carlin * (dictated by Marta Leos NP) . PRIMARY CARE PROVIDER: Dr. Marlon Walter. CHIEF COMPLAINT: Paleness and diaphoresis in addition to left-sided chest pain. HISTORY OF PRESENT ILLNESS: Mr. Hernandes is a 61-year-old male with a past medical history significant for multiple sclerosis, asthma, chronic bronchiectasis, COPD, obstructive sleep apnea, chronic sinusitis, and psoriasis , who presented to the emergency room after awaking this morning with left- sided chest pain, he was found to be pale, diaphoretic, and confused by his . The patient has a history of chronic bronchiectasis with hemoptysis. He has been followed by Dr. Begum in addition to Dr. Luz abraham for pulmonology in the [facility]. The patient was seen at the [facility] on 08/27/17, at which point he was noted to have chronic damage to his left lower lobe with mucoid impaction due to his bronchiectasis. It was recommended that the patient to be placed on azithromycin 250 mg oral daily as prophylactic treatment in addition to its anti-inflammatory effects. The plan was for a 6-month trial with a 3-month followup at the [facility]. The patient was seen for followup by Dr. Begum on 09/19/17, at which time he had been having a few days of fever in the late afternoons and evenings, temperature max 101.7. At the patient's appointment, he was noted to have a temperature of 100.4. He was denying any hemoptysis. It was suspected, he had an upper respiratory infection and it was recommended that if he did not get better in 2 to 3 days, to start taking oral doxycycline in addition to continuing his long- term azithromycin and inhalers. The patient states that overall he has been feeling fine in the morning and then developing the fevers in the evening. He denies any chills. He reports cough, intermittent hemoptysis, which is much improved since over this summer when he was hospitalized for it. He denies any shortness of breath, nausea or vomiting. The patient states that when he first woke up this morning, he noticed a left- sided chest discomfort. He recalls going into the bathroom. His found him holding onto a towel bar, bent over, very diaphoretic, pale, and talking about onions, and confused. She called EMS and noted that they reported a low blood pressure. The EMS records show systolic blood pressures in the 90s. She also reports night sweats for the last few nights in addition to diaphoresis. He has nasal congestion at baseline, but feels that it has been worse than his baseline over the last week. The patient's period of confusion resolved. He was transported to [facility] by EMS. While in the emergency room, the patient received a dose of aspirin and was started on Levaquin. He had a chest x-ray showing a density obstructing the left lower lung that could a pneumonia. He had a EKG showing a sinus rhythm at a rate of 70 and incomplete right bundle-branch block and a left anterior facet block. No acute signs of ischemia with EKG similar to previous EKG. The patient also had a chest CTA showing no evidence of a PE. He has a persistent bronchiectasis and plugging of the bronchi and bronchioles involving the left lower lung, without significant change when compared to previous CT scan of March 2017. It was noted to be an interval appearance of a left upper lobe mass measuring 3.3 x 3.5 cm as well as interval development of a mediastinal lymphadenopathy. He had labs that were significant for white blood cell count of 12.2, lactic acid of 0.9, troponin of 0.00, and hospitalists were asked to evaluate the patient for admission. PAST MEDICAL HISTORY: 1. Multiple sclerosis. 2. Asthma. 3. Bronchiectasis. 4. COPD. 5. Obstructive sleep apnea, not treated. 6. Psoriasis. 7. Chronic sinusitis. PAST SURGICAL HISTORY: 1. Status post septoplasty. 2. Status post tonsillectomy. 3. Status post multiple bronchoscopies. 4. Status post bilateral inguinal hernia repairs. HOME MEDICATIONS: Include: 1. Melatonin 3 mg oral daily at bedtime as needed for sleep. 2. Azithromycin 250 mg oral daily. 3. Sodium chloride 3%, 1 unit inhalation twice daily with albuterol nebs. 4. Chlorpheniramine maleate 4 mg oral daily at bedtime as needed. 5. Xylitol 500 mg oral daily as needed. 6. Vyvanse 30 mg oral every morning. 7. Lactobacillus acidophilus 1 capsule oral every evening. 8. Lexapro 10 mg oral every evening. 9. Tecfidera 240 mg oral twice daily. 10. Vitamin D3, 2000 units oral every morning. 11. Zyrtec 10 mg oral every evening. 12. Albuterol 2.5 mg nebulizer inhalation twice daily. ALLERGIES: SOY, BACTRIM, and ENVIRONMENTAL allergies. FAMILY HISTORY: The patient's father had a history of myocardial infarction. He denies any family history of diabetes mellitus or cancer. The patient's mother had a history of MS. SOCIAL HISTORY: The patient denies tobacco or recreational drug use. He occasionally drinks alcohol. He is and his , Maribell Hernandes, will be his surrogate decision maker in the event he is unable to make decisions for himself. REVIEW OF SYSTEMS: I performed a 14-point review of systems. All the pertinent positives and negatives are mentioned in the history of present illness, the remaining review of systems are negative. PHYSICAL EXAMINATION GENERAL APPEARANCE: The patient is alert, pleasant, and appears to be in no acute distress. VITAL SIGNS: Temperature 98.9, heart rate 99, respiratory rate 20, O2 sat 97% on 2 L, blood pressure 106/51. HEENT: Normocephalic, atraumatic. Pupils are equal and reactive to light. Extraocular movements are intact. RESPIRATORY: Clear in the upper lobes with crackles in bilateral lower lobes. CARDIOVASCULAR: Regular rate and rhythm. S1, S2 present. There are no murmurs , rubs or gallops heard. ABDOMEN: Soft, nontender, nondistended. Bowel sounds present x4. EXTREMITIES: There is no lower extremity edema. DP and PT pulses are 2+ and symmetric. MUSCULOSKELETAL: There is no clubbing or cyanosis noted. The patient exhibits good strength in all extremities. NEUROLOGICAL: The patient is alert and oriented x4. Cranial nerves II through XII are grossly intact. The patient's smile is symmetric. Tongue is midline. Hand limnologist are equal. Bilateral lower extremity strength is equal. PSYCHOLOGICAL: The patient is calm and cooperative. SKIN: There are no rashes or abnormalities seen. DIAGNOSTIC STUDIES/LAB DATA: Sodium 135, potassium 3.9, chloride 100, CO2 of 28, BUN 17, creatinine 1.01, glucose 118. White blood cell count 12.2, hemoglobin 12.5, hematocrit 37, platelet count 303. Lactic acid 0.9. Troponin 0.00. EKG shows sinus rhythm with a rate of 71 and an incomplete right bundle-branch block and a left anterior facet block, with no acute signs of ischemia. This EKG is similar when compared to previous EKG of 05/14/17. 1. Chest x-ray from today. Radiologist's impression: Density obstructing the left lower lung could be pneumonia in the correct clinical setting. A followup chest x- ray after an appropriate course of therapy is advised to ascertain resolution. 2. Chest CTA from today. Radiologist's impression: No CT evidence of pulmonary embolus. There is a persistent bronchiectasis and plugging of the bronchi and bronchioles involving the left lower lobe without significant change compared to the 04/11/17 CT exam. There has been interval appearance of a left upper lobe mass measuring 3.3 x 3.5 cm in the axial plane, as well as interval development of mediastinal lymphadenopathy. Differentials include neoplasm, inflammation or infection. IMPRESSION: Mr. Hernandes is a 61-year-old male with past medical significant for multiple sclerosis, asthma, bronchiectasis, chronic obstructive pulmonary disease, sleep apnea, psoriasis, chronic sinusitis, who presents to the emergency room with complaints of fever, paleness, diaphoretic, and chest pain. He will be admitted as an inpatient for pneumonia and chest pain. ASSESSMENT/PLAN: 1. Pneumonia. When the chest x-ray from today is compared to previous chest x - rays in the system, the patient appears to have an area of pneumonia above the area of his bronchiectasis in his left lower lung. He is on chronic azithromycin and inhaled medications for his bronchiectasis. We will continue the patient on his home azithromycin and place him on ceftriaxone. He did receive a dose of Levaquin while in the emergency room. We will get sputum for Legionella and S. pneumoniae, in addition to checking a sputum culture. He is currently afebrile, but does have slight leukocytosis. The patient is meeting sepsis criteria on admission with SIRS criteria of tachycardia and leukocytosis. He is not meeting acute qSOFA criteria at this time. We will ask Dr. Begum to consult on the patient as he follows with him outpatient. 2. Chest pain. The patient's chest pain is currently resolved. I suspect this could muscular due to his frequent coughing as he has a history of coughing so hard that he developed inguinal hernias. We will monitor him on telemetry and trend his troponins. At this time, I am going to hold off on any stress testing in the setting of his pneumonia and he would be referred for outpatient stress testing once he has recovered from his pneumonia. 3. Bronchiectasis and chronic obstructive pulmonary disease. The patient will be continued on his home albuterol nebulizers and azithromycin. 4. Depression. The patient will be continued on his home Lexapro. 5. Multiple sclerosis. The patient will be continued on his home dimethyl fumarate. 6. Obstructive sleep apnea. The patient is not on CPAP or BiPAP at home. He will have supplemental oxygen as needed. 7. Fluids, electrolytes, and nutrition. The patient will be on regular diet. 8. Code status. Full code. 9. DVT prophylaxis. The patient is at high risk. He will have subcu heparin. 10. Disposition. Inpatient. TIME SPENT: Time for this admission was approximately 60 minutes, greater than half of that was spent with the patient and discussing medications, past medical history, and the events leading up to his arrival today and performing physical examination. The case has been reviewed with the attending, Dr. Carlin, who agrees with the plan of care. Reviewed by ALYSA POTTER 09/23/17 1350 [id number]/[facility] #: [id number] KEREN
[2017-09-22] MEDS: Sodium Chloride(INHALANT) 3%* 4 ML NEB.SOLN INH SCH (20:15)
[2017-09-22] MEDS: Albuterol 2.5 MG/3 ML NEB.SOL* (0.083%) INH SCH (20:15)
[2017-09-22] MEDS ORDERED: Sodium Chloride(INHALANT) 3%* 4 ML NEB.SOLN INH SCH (21:00)
[2017-09-22] MEDS: PTO:Dimethyl Fumarate(NF) 240 MG CAP PO SCH (21:44)
[2017-09-22] MEDS: Lactobacillus Acidophilu (GG)* 1 CAP CAP PO SCH (21:45)
[2017-09-22] MEDS: CMC Escitalopram (NF) 10 MG TAB PO SCH (21:45)
[2017-09-22] MEDS: Heparin VIAL(*) 5000 UNITS/ML VIAL (FIVE THOUSAND) SUBCUT SCH (21:48)
[2017-09-23] MEDS: Acetaminophen TAB* 325 MG PO PRN ×2 (04:56→21:50)
[2017-09-23] MEDS: Heparin VIAL(*) 5000 UNITS/ML VIAL (FIVE THOUSAND) SUBCUT SCH ×3 (04:57→20:43)
[2017-09-23 05:17] LABS: Hematocrit 33 % (42-52); Hemoglobin 11.5 g/dl (14.0-18.0); Mean Corpuscular HGB Conc 35 g/dl (31-36); Mean Corpuscular Hemoglobin 32 pg (27-31); Mean Corpuscular Volume 90 fL (80-94); Mean Platelet Volume 7 um3 (7.4-10.4); Red Blood Count 3.64 10^6/ul (4.0-5.4); Red Cell Distribution Width 14 % (10.5-15); White Blood Count 10.3 10^3/ul (3.5-10.8)
[2017-09-23 05:29] LABS: Calcium 8.6 mg/dL (8.6-10.3); EGFR African American 97.1 (>60); EGFR Non-African American 75.5 (>60); Potassium 3.8 mmol/L (3.5-5.0)
[2017-09-23] MEDS: Sodium Chloride(INHALANT) 3%* 4 ML NEB.SOLN INH SCH ×2 (08:09→19:56)
[2017-09-23] MEDS: Albuterol 2.5 MG/3 ML NEB.SOL* (0.083%) INH SCH (08:09)
[2017-09-23] MEDS: Lisdexamfetamine(NF) 10 MG CAP PO SCH (08:57)
[2017-09-23] MEDS: CMC:LoraTADine TAB(NF) 10 MG TAB (AUTOSUB to CETIRIZINE) PO SCH (08:57)
[2017-09-23] MEDS: Cholecalciferol TAB* 1000 UNITS PO SCH (08:57)
[2017-09-23] MEDS: PTO:Dimethyl Fumarate(NF) 240 MG CAP PO SCH ×2 (08:58→20:43)
[2017-09-23] MEDS ORDERED: Azithromycin TAB* 250 MG PO SCH (09:00)
[2017-09-23] MEDS ORDERED: Benzonatate CAP* 100 MG PO PRN (10:45)
[2017-09-23 11:15] LABS: C Reactive Protein 108.18 mg/L (< 5.00)
--- NOTE | 2017-09-23 14:05 | PN ---
Subjective Date of Service: 09/23/17 Interval History: This is a 61 year old male patient with hx of bronchiectasis, that follows with the [facility] that presented with chest pain and increased cough. Was found to have a [place] PNA. Patient was seen in his room, NAD, denies pain at rest , only with cough. Refused his neb this AM because it induces his cough which is quite painful. Has had fever overnight and broke a sweat at 5am. Objective Active Medications: Acetaminophen (Tylenol Tab*) 650 mg PO Q4H PRN PRN Reason: FEVER/PAIN Last Admin: 09/23/17 04:56 Dose: 650 mg Acetylcysteine (Mucomyst Inhalation Sapphire*) 400 mg INH Q6H [place] Albuterol (Ventolin 2.5 Mg/3 Ml Neb.Sapphire*) 2.5 mg INH Q24HR [place] Benzonatate (Tessalon Cap*) 100 mg PO BID PRN PRN Reason: COUGH Chlorpheniramine Maleate (Chlortrimeton Tab*) 4 mg PO BEDTIME PRN PRN Reason: PAIN Cholecalciferol (Vitamin D Tab*) 3,000 units PO QAM [facility] Last Admin: 09/23/17 08:57 Dose: 3,000 units Dimethyl Fumarate (Tecfidera(Nf)) 240 mg PO BID [facility] Last Admin: 09/23/17 08:58 Dose: 240 mg Escitalopram Oxalate (Lexapro (Nf)) 10 mg PO 2100 [facility] Last Admin: 09/22/17 21:45 Dose: 10 mg Heparin Sodium (Porcine) (Heparin Vial(*)) 5,000 units SUBCUT Q8HR [facility] Last Admin: 09/23/17 04:57 Dose: Not Given Sodium Chloride (Ns 0.9% 1000 Ml*) 1,000 mls @ 100 mls/hr IV PER RATE [facility] Last Admin: 09/22/17 17:31 Dose: 100 mls/hr Levofloxacin/Dextrose (Levaquin 750 Mg Ivpremix(*)) 750 mg in 150 mls @ 100 mls /hr IVPB Q24H [facility] Lactobacillus Rhamnosus (Culturelle*) 1 cap PO 2100 [facility] Last Admin: 09/22/17 21:45 Dose: 1 cap Lisdexamfetamine Dimesylate (Vyvanse(Nf)) 30 mg PO QAM [facility] Last Admin: 09/23/17 08:57 Dose: 30 mg Loratadine (Claritin Tab(Nf)) 10 mg PO DAILY [facility] Last Admin: 09/23/17 08:57 Dose: 10 mg Melatonin (Melatonin (Nf)) 3 mg PO BEDTIME PRN; Protocol PRN Reason: SLEEP Sodium Chloride (Sodium Chloride(Inhalant) 3%*) 4 ml INH BID [facility] Last Admin: 09/23/17 08:09 Dose: Not Given Vital Signs 09/22/17 09/22/17 09/22/17 14:30 15:00 15:01 Temperature Pulse Rate 80 80 79 Respiratory 14 18 14 Rate Blood Pressure 109/52 (mmHg) O2 Sat by Pulse 98 97 98 Oximetry 09/22/17 09/22/17 09/22/17 15:30 16:00 16:30 Temperature Pulse Rate 90 73 76 Respiratory 18 20 19 Rate Blood Pressure 115/53 112/54 113/57 (mmHg) O2 Sat by Pulse 99 100 99 Oximetry 09/22/17 09/22/17 09/22/17 16:39 16:45 16:50 Temperature 98.7 F 98.5 F Pulse Rate 78 79 Respiratory 12 20 20 Rate Blood Pressure 112/69 123/51 (mmHg) O2 Sat by Pulse 97 100 Oximetry 09/22/17 09/22/17 09/22/17 20:00 20:04 23:46 Temperature 99.2 F 99.7 F Pulse Rate 82 93 Respiratory 18 22 18 Rate Blood Pressure 121/58 139/60 (mmHg) O2 Sat by Pulse 96 93 Oximetry 09/23/17 09/23/17 09/23/17 00:30 04:22 07:37 Temperature 100.0 F 98.4 F Pulse Rate 129 89 Respiratory 18 16 Rate Blood Pressure 139/59 112/57 (mmHg) O2 Sat by Pulse 96 93 95 Oximetry 09/23/17 09/23/17 09/23/17 08:00 09:31 12:03 Temperature 98.4 F Pulse Rate 91 Respiratory 16 20 Rate Blood Pressure 135/63 (mmHg) O2 Sat by Pulse 93 97 Oximetry Oxygen Devices in Use Now: None Eyes: No Scleral Icterus, PERRLA Ears/Nose/Mouth/Throat: NL Teeth, Lips, Gums Neck: NL Appearance and Movements; NL JVP Respiratory: - - Diminished right base, poor air exchange L base, no appreciable wheeze, course at the apices Cardiovascular: RRR Extremities: No Edema, No Clubbing, Cyanosis Skin: No Rash or Ulcers Neurological: Alert and Oriented x 3 Lines/Tubes/Other Access: Clean, Dry and Intact Peripheral IV Nutrition: Taking PO's Result Diagrams: 09/23/17 04:48 09/23/17 04:48 Microbiology and Other Data: Microbiology 09/22/17 17:25 Legionella Urinary Antigen - Final Urine Negative Legionella Streptococcus pneumoniae Ag Screen - Final Negative S. pneumo Antigen Assess/Plan/Problems-Billing Assessment: - Patient Problems (1) Bronchiectasis Code(s): J47.9 - BRONCHIECTASIS, UNCOMPLICATED SNOMED Code(s): 42158505 Comment: - On low dose azithromycin daily, will be continued - Monitor respiratory status, currently stable sats and RR (2) DVT prophylaxis Code(s): OTC0093 - SNOMED Code(s): 303142603 Comment: - Ambulatory but higher risk, on heparin SQ Q8h (3) Full code status Code(s): Z78.9 - OTHER SPECIFIED HEALTH STATUS SNOMED Code(s): 477403305 (4) Pneumonia Code(s): J18.9 - PNEUMONIA, UNSPECIFIED ORGANISM SNOMED Code(s): 881789432 Comment: - Dr. Begum to manage atbx - Follow cultures, currently NTD - Patient refused albuterol this AM, counseled, will trial mucomyst nebs Q6 to thin secretions with albuterol daily in AM only, as patient has significant amount of coughing and pain with albuterol alone. Reasses in AM. (5) Depression Code(s): F32.9 - MAJOR DEPRESSIVE DISORDER, SINGLE EPISODE, UNSPECIFIED SNOMED Code(s): 72518310 Comment: - Continue vyvanse and lexapro - Mood stable (6) Multiple sclerosis Current Visit: No Status: Chronic Code(s): G35 - MULTIPLE SCLEROSIS SNOMED Code(s): 94902644 Comment: - Continue dimethyl fumarate, stalbe (7) TANA (obstructive sleep apnea) Code(s): G47.33 - OBSTRUCTIVE SLEEP APNEA (ADULT) (PEDIATRIC) SNOMED Code(s): 28770461 Comment: - Stable, continue to monitor respiratory status Status and Disposition: This is a 61 year old male with complicated PNA and bronchiectasis. Will remain inpatient on IV atbx with Infectious Disease comanaging. Counseling and/or Coordination of Care Minutes: Coordinated with patient and nursing staff, time spent >45mins Attending: Abel Carlin
[2017-09-23] MEDS: NS 0.9% 1000 ML* 1,000 ML IV SCH (14:33)
[2017-09-23] MEDS: Acetylcysteine INHALATION SOL* 200 MG/ML NEB.SOLN 10 ML INH SCH ×2 (14:45→19:55)
--- NOTE | 2017-09-23 16:16 | CONS ---
CONSULTATION REPORT: DATE OF CONSULT: 09/23/17 REQUESTING PROVIDER: Marta Fontana NP. CONSULTING SERVICE: Infectious Disease. REASON FOR CONSULTATION: Left upper lobe pneumonia. IMPRESSION: 1. Left upper lobe 3 cm lung mass, which is fairly diffuse and with associated lymphadenopathy, acute onset of left-sided chest pain, fever and sepsis, I think this is mostly like a lung abscess. Usual organisms including strep, staph, pseudomonas, less likely fungal, he is improving with the Levaquin he has had so far. 2. Bronchiectasis, chronic. 3. SULFA allergy. 4. Sepsis, was present on admission. 5. Encephalopathy, was present on admission, due to sepsis. RECOMMENDATION: Change him back to Levaquin 750 mg IV every 24 hours. Follow his CRP and his symptoms. As long as they are both improving, we will plan on a 4-week course of antibiotics. If it is not improving, other considerations would be fungal organisms and we may need to consider a CT-guided biopsy. HISTORY OF PRESENT ILLNESS: This is a 61-year-old male with bronchiectasis, recently had started doxycycline for low-grade fever. His symptoms progressed with worsening cough over the weekend and then Saturday morning his noticed he was sleeping longer. When he did get out of bed, he was talking gibberish, not making sense and doubled over with left-sided chest pain. She called 911. They brought him to the hospital. He had a white blood cell count of 12,000. He was febrile and hypotensive. In the ambulance, his blood pressure was in the 60s systolic. Fluid resuscitation was about 100 when he came to the hospital. Sputum culture and Gram stain was obtained. The Gram stain showed 3 + gram-positive cocci, 2+ gram- positive bacilli, 4+ neutrophils, 1+ epithelials. He has had fevers overnight. His thinks he is making more sense and acting more like himself. He has some occasional cough productive of sputum. No hemoptysis. Left chest pain is a little bit better now but he notices it when he coughs. Deep breath sets it off. He had a CT of the chest that showed 3 x 3 cm peripheral left upper lobe mass. It is in the inferior aspect of the left upper lobe, there is some associated lymphadenopathy. There is no pulmonary embolus. PAST MEDICAL HISTORY: 1. Bronchiectasis. 2. Multiple sclerosis. 3. COPD. 4. Obstructive sleep apnea. 5. Psoriasis. 6. Chronic sinusitis. 7. Status post septoplasty. 8. Status post tonsillectomy. 9. Status post bilateral inguinal hernia repair. MEDICATIONS: 1. Tylenol. 2. Albuterol. 3. Azithromycin 250 mg daily. 4. Chlorpheniramine. 5. Cholecalciferol. 6. Lexapro. 7. Heparin subcutaneous injection. 8. Lactobacillus. 9. Ceftriaxone 1 g daily. ALLERGIES: BACTRIM. FAMILY HISTORY: No recurrent infections. SOCIAL HISTORY: Lives in [place] with his . No travel, no sick contacts. REVIEW OF SYSTEMS: A 14-point review of systems was all negative except as noted above. PHYSICAL EXAM: Vital Signs: Temperature 37, heart rate 90, respiratory rate 16 , blood pressure 112/57, and O2 sat 95% on room air. In general, he is awake, not in distress. Neurologic: He is oriented x3, follows all commands. HEENT: There is no conjunctival hemorrhage. Oropharynx without lesions. Neck: Supple without nuchal rigidity. Lymph Nodes: There is no inguinal, axillary, or epitrochlear lymphadenopathy. Heart is regular and tachycardic without murmurs. Lungs with prolonged expiration. There are expiratory rhonchi at the bases bilaterally. There are no wheeze. Abdomen is soft, nontender, and nondistended. There are bowel sounds present. Skin: There is no rash or splinter hemorrhages. Musculoskeletal: There is no spine tenderness to palpation or joint synovitis. LABORATORY DATA: White blood cell count of 10, hemoglobin 11, platelets 295, 000. Creatinine is 1. Please see impressions and recommendations outlined above. Thank you for asking me to see Mr. Hernandes in consultation. [id number]/[facility] #: [id number] KEREN
[2017-09-23] MEDS: Levofloxacin 750 MG IVPREMIX(* 750 MG/150 ML BAG IVPB SCH (16:36)
[2017-09-23] MEDS: Albuterol 2.5 MG/3 ML NEB.SOL* (0.083%) INH PRN (19:52)
[2017-09-23] MEDS: Lactobacillus Acidophilu (GG)* 1 CAP CAP PO SCH (20:43)
[2017-09-23] MEDS: CMC Escitalopram (NF) 10 MG TAB PO SCH (20:43)
[2017-09-23] MEDS: Ibuprofen TAB* 400 MG PO PRN (23:44)
[2017-09-24] MEDS: Acetylcysteine INHALATION SOL* 200 MG/ML NEB.SOLN 10 ML INH SCH ×4 (01:13→22:23)
[2017-09-24] MEDS: NS 0.9% 1000 ML* 1,000 ML IV SCH ×2 (02:24→12:44)
[2017-09-24] MEDS: Heparin VIAL(*) 5000 UNITS/ML VIAL (FIVE THOUSAND) SUBCUT SCH ×3 (04:57→22:10)
[2017-09-24] MEDS: Sodium Chloride(INHALANT) 3%* 4 ML NEB.SOLN INH SCH ×2 (07:52→22:31)
[2017-09-24] MEDS: Cholecalciferol TAB* 1000 UNITS PO SCH (08:02)
[2017-09-24] MEDS: PTO:Dimethyl Fumarate(NF) 240 MG CAP PO SCH ×2 (08:02→22:11)
[2017-09-24] MEDS: CMC:LoraTADine TAB(NF) 10 MG TAB (AUTOSUB to CETIRIZINE) PO SCH (08:49)
[2017-09-24] MEDS: Lisdexamfetamine(NF) 10 MG CAP PO SCH (08:49)
--- NOTE | 2017-09-24 09:28 | PN ---
Subjective Date of Service: 09/24/17 Interval History: Patient seen and examined. States when he was coughing this AM, had some jayson blood in sputum mixed with darker "orange" colored streaks as well. Was concerned and did not take albuterol/mucomyst this am. Also states fever last night with T-max 102. Otherwise denies chest pains, no chills, no headache, no dizziness. Objective Active Medications: Acetaminophen (Tylenol Tab*) 650 mg PO Q4H PRN PRN Reason: FEVER/PAIN Last Admin: 09/23/17 21:50 Dose: 650 mg Acetylcysteine (Mucomyst Inhalation Sapphire*) 400 mg INH Q6H [facility] Last Admin: 09/24/17 07:52 Dose: Not Given Albuterol (Ventolin 2.5 Mg/3 Ml Neb.Sapphire*) 2.5 mg INH Q24HR [facility] Albuterol (Ventolin 2.5 Mg/3 Ml Neb.Sapphire*) 2.5 mg INH Q4H PRN PRN Reason: SOB/WHEEZING Last Admin: 09/23/17 19:52 Dose: 2.5 mg Benzonatate (Tessalon Cap*) 100 mg PO BID PRN PRN Reason: COUGH Chlorpheniramine Maleate (Chlortrimeton Tab*) 4 mg PO BEDTIME PRN PRN Reason: PAIN Cholecalciferol (Vitamin D Tab*) 3,000 units PO QAM [facility] Last Admin: 09/24/17 08:02 Dose: 3,000 units Dimethyl Fumarate (Tecfidera(Nf)) 240 mg PO BID [facility] Last Admin: 09/24/17 08:02 Dose: 240 mg Escitalopram Oxalate (Lexapro (Nf)) 10 mg PO 2100 [facility] Last Admin: 09/23/17 20:43 Dose: 10 mg Heparin Sodium (Porcine) (Heparin Vial(*)) 5,000 units SUBCUT Q8HR [facility] Last Admin: 09/24/17 04:57 Dose: Not Given Sodium Chloride (Ns 0.9% 1000 Ml*) 1,000 mls @ 100 mls/hr IV PER RATE [facility] Last Admin: 09/24/17 02:24 Dose: 100 mls/hr Levofloxacin/Dextrose (Levaquin 750 Mg Ivpremix(*)) 750 mg in 150 mls @ 100 mls /hr IVPB Q24H [facility] Last Admin: 09/23/17 16:36 Dose: 100 mls/hr Ibuprofen (Motrin Tab*) 400 mg PO Q6H PRN PRN Reason: fever/pain Last Admin: 09/23/17 23:44 Dose: 400 mg Lactobacillus Rhamnosus (Culturelle*) 1 cap PO 2100 [facility] Last Admin: 09/23/17 20:43 Dose: 1 cap Lisdexamfetamine Dimesylate (Vyvanse(Nf)) 30 mg PO QAM [facility] Last Admin: 09/24/17 08:49 Dose: 30 mg Loratadine (Claritin Tab(Nf)) 10 mg PO DAILY [facility] Last Admin: 09/24/17 08:49 Dose: 10 mg Melatonin (Melatonin (Nf)) 3 mg PO BEDTIME PRN; Protocol PRN Reason: SLEEP Sodium Chloride (Sodium Chloride(Inhalant) 3%*) 4 ml INH BID [facility] Last Admin: 09/24/17 07:52 Dose: Not Given Vital Signs - 8 hr 09/24/17 09/24/17 03:25 08:20 Temperature 98.1 F 97.9 F Pulse Rate 72 69 Respiratory 16 18 Rate Blood Pressure 128/55 120/52 (mmHg) O2 Sat by Pulse 97 97 Oximetry Oxygen Devices in Use Now: None Eyes: No Scleral Icterus, PERRLA Ears/Nose/Mouth/Throat: NL Teeth, Lips, Gums, Mucous Membranes Moist Neck: NL Appearance and Movements; NL JVP, Trachea Midline Respiratory: - - Diminished LL base but with improved air exchange today. Mild expriatory wheeze, still course throughout. Overall improved from yesterday's exam. Cardiovascular: NL Sounds; No Murmurs; No JVD Abdominal: NL Sounds; No Tenderness; No Distention Extremities: No Edema, No Clubbing, Cyanosis Skin: No Rash or Ulcers Neurological: Alert and Oriented x 3 Nutrition: Taking PO's Result Diagrams: 09/23/17 04:48 09/23/17 04:48 Microbiology and Other Data: Microbiology 09/22/17 17:25 Legionella Urinary Antigen - Final Urine Negative Legionella Streptococcus pneumoniae Ag Screen - Final Negative S. pneumo Antigen Assess/Plan/Problems-Billing Assessment: - Patient Problems (1) Bronchiectasis Code(s): J47.9 - BRONCHIECTASIS, UNCOMPLICATED SNOMED Code(s): 17381832 Comment: - On low dose azithromycin daily, will be continued - Monitor respiratory status, currently stable sats and RR, remains stable (2) DVT prophylaxis Code(s): MRE0058 - SNOMED Code(s): 645856790 Comment: - Ambulatory but higher risk, on heparin SQ Q8h (3) Full code status Code(s): Z78.9 - OTHER SPECIFIED HEALTH STATUS SNOMED Code(s): 389309505 (4) Pneumonia Code(s): J18.9 - PNEUMONIA, UNSPECIFIED ORGANISM SNOMED Code(s): 717870849 Comment: - Dr. Begum managing atbx therapy - Follow cultures/micro - Continue nebs with albuterol/mucomyst and PRN albuterol - Trend temps and WBCs - Follow labs today (pending) - If Hemoptysis continues, may consider consult with pulmo, however, I feel this is due to his thick secretions and heavy coughing with inability to expectorate. Secretions are more mobile today. - Clinically improving, continue to monitor closely (5) Depression Code(s): F32.9 - MAJOR DEPRESSIVE DISORDER, SINGLE EPISODE, UNSPECIFIED SNOMED Code(s): 19529310 Comment: - Continue vyvanse and lexapro - Mood stable (6) Multiple sclerosis Current Visit: No Status: Chronic Code(s): G35 - MULTIPLE SCLEROSIS SNOMED Code(s): 95340008 Comment: - Continue dimethyl fumarate, stalbe (7) TANA (obstructive sleep apnea) Code(s): G47.33 - OBSTRUCTIVE SLEEP APNEA (ADULT) (PEDIATRIC) SNOMED Code(s): 82983025 Comment: - Stable, continue to monitor respiratory status Status and Disposition: This is a 61 year old male with complicated PNA and bronchiectasis, clinically improving today. Will remain inpatient on IV atbx with Infectious Disease comanaging atbx therapy. Will hold off on consulting Pulmonology at this time, as patient appears to be clinically stable and progressing. Counseling and/or Coordination of Care Minutes: Coordinated with patient and nursing staff. Time spent >60mins
[2017-09-24 11:31] LABS: Hematocrit 32 % (42-52); Hemoglobin 10.8 g/dl (14.0-18.0); Mean Corpuscular HGB Conc 34 g/dl (31-36); Mean Corpuscular Hemoglobin 31 pg (27-31); Mean Corpuscular Volume 91 fL (80-94); Mean Platelet Volume 7 um3 (7.4-10.4); Red Cell Distribution Width 14 % (10.5-15); White Blood Count 6.2 10^3/ul (3.5-10.8)
[2017-09-24 11:44] LABS: BUN/Creatinine Ratio 15.4 (8-20); Calcium 9.1 mg/dL (8.6-10.3); EGFR African American 129.3 (>60); EGFR Non-African American 100.5 (>60); Potassium 3.6 mmol/L (3.5-5.0)
[2017-09-24] MEDS: Albuterol 2.5 MG/3 ML NEB.SOL* (0.083%) INH SCH (12:44)
[2017-09-24] MEDS: Albuterol 2.5 MG/3 ML NEB.SOL* (0.083%) INH PRN ×2 (15:08→22:23)
--- NOTE | 2017-09-24 15:12 | ED ---
Asha Clay Gabriel, scribed for Dominic Erickson MD on 09/22/17 at 1148 . HPI Chest Pain - HPI Summary HPI Summary: This patient is a 61 year old M BIBA to [facility] accompanied by with a chief complaint of CP that radiating into his left arm that occurred at 1100 today. The patient rates the pain 3/10 in severity. Symptoms aggravated by movement. His states when she saw him he was bent over at the waist. She states during this episode he wasnt making any sense when he spoke, was sweating, and he was pale. Pt also reports a low grade fever for that past few days. Patient denies nausea vomiting, recent illness, slurred speech, and coughing (increased from baseline). - History of Current Complaint Time Seen by Provider: 09/22/17 11:37 Hx Obtained From: Patient Onset/Duration: Still Present Timing: Lasting Minutes Initial Severity: Moderate Current Severity: Mild Pain Intensity: 3 Pain Scale Used: 0-10 Numeric Chest Pain Radiates: Yes Chest Pain Radiates To:: Other - arm Aggravating Factor(s): Movement Associated Signs and Symptoms: Positive: Other: - Pallor, not making sense when speaking, and was diaphoretic - Additional Pertinent History Primary Care Physician: [id number] - Allergy/Home Medications Allergies/Adverse Reactions: Allergies Allergy/AdvReac Type Severity Reaction Status Date / Time Soy Allergy Allergy Severe flushed Verified 08/13/17 15:09 skin Sulfamethoxazole Allergy Severe rash with Verified 08/13/17 15:09 w/Trimethoprim itching [From Bactrim] environmental Allergy Intermediate Eyes Uncoded 08/13/17 15:09 Itchy/Swollen/Red/Watery Home Medications: Home Medications Albuterol 2.5MG/3ML (0.083%)* [Ventolin 2.5 MG/3 ML NEB.ERIC*] 2.5 mg INH BID 01/04 [History Confirmed 09/22/17] Azithromycin TAB* [Zithromax TAB (Z-RAÚL) 250 mg #6 tabs] 250 mg PO DAILY [History Confirmed 09/22/17] Chlorpheniramine Maleate TAB* [Chlortrimeton TAB*] 4 mg PO BEDTIME PRN 09/22/17 [History Confirmed 09/22/17] Loratadine [Claritin 10 MG CAP] 10 mg PO DAILY 09/22/17 [History Confirmed 09/22] Melatonin (NF) 3 mg PO BEDTIME PRN 09/22/17 [History Confirmed 09/22/17] Sodium Chloride(INHALANT) 3%* 1 unit INH BID 09/22/17 [History Confirmed ] Xylitol (Mouth-Throat) [Xylimelts/Mint Free] 500 mg MT DAILY PRN 09/22/17 [ History Confirmed 09/22/17] PMH/Surg Hx/FS Hx/Imm Hx Previously Healthy: No Respiratory History: Reports: Hx Asthma - NO INHALER USED, Hx Chronic Obstructive Pulmonary Disease (COPD), Hx Sleep Apnea, Other Respiratory Problems /Disorders - pneumonia 03/2017, CHRONIC BRONCHITIS,COPD GI History: Reports: Other GI Disorders - BILAT HERNIA'S R/T CHRONIC PRODUCTIVE COUGHING History: Reports: Hx Kidney Infection - 2010 X 1, Hx Kidney Stones - 5-6 years ago xray of lungs showed stones Musculoskeletal History: Reports: Other Musculoskeletal History - MS NO WALKING ISSUES Denies: Hx Rheumatoid Arthritis, Hx Osteoporosis Sensory History: Reports: Hx Contacts or Glasses - Reading glasses Denies: Hx Cataracts, Hx Eye Injury, Hx Eye Prosthesis, Hx Glaucoma, Hx Legally Blind, Hx Macular Degeneration, Hx Vision Problem, Hx Deafness, Hx Hearing Aid Opthamlomology History: Reports: Hx Contacts or Glasses - Reading glasses Denies: Hx Cataracts, Hx Eye Injury, Hx Eye Prosthesis, Hx Glaucoma, Hx Legally Blind, Hx Macular Degeneration, Hx Vision Problem Neurological History: Reports: Hx Nerve Disease - Multiple Sclerosis, Other Neuro Impairments/Disorders - MUTIPLE SCLEROSIS Psychiatric History: Reports: Hx Depression - mild PT. STATES CONTROLLED - Cancer History Hx Chemotherapy: No - Surgical History Surgery Procedure, Year, and Place: SINUS SURGERY [place] 2011. [address]omy early DR. HOLBROOK. tonsillectomy as a child. BRONCHOSCOPY X 4, 06/06& 05/06, 2009, 2013 [facility]/06 DR. VAUGHAN Hx Anesthesia Reactions: No - Immunization History Date of Tetanus Vaccine: utd Date of Influenza Vaccine: utd Infectious Disease History: Reports: Traveled Outside the [place] in Last 30 Days - [place] - Family History Known Family History: Positive: Cardiac Disease, Other - Mother -- [place] Family History: Father - [place] - Social History Alcohol Use: Occasionally Alcohol Amount: 2 DRINK Q WEEK Hx Substance Use: No Substance Use Type: Reports: None Hx Tobacco Use: No Smoking Status (MU): Never Smoked Tobacco Review of Systems Constitutional: Negative - recent illness Positive: Fever - low grade , Skin Diaphoresis Positive: Chest Pain Negative: Cough Negative: Vomiting, Nausea Positive: Other - pallor Negative: Slurred Speech Positive: Other - not making sense when speaking All Other Systems Reviewed And Are Negative: Yes Physical Exam - Summary Physical Exam Summary: VITAL SIGNS: Reviewed. GENERAL: ~Patient is a well-developed and nourished female who is lying comfortable in the stretcher. ~Patient is not in any acute respiratory distress. HEAD AND FACE: No signs of trauma. ~No ecchymosis, hematomas or skull depressions. No sinus tenderness. EYES: PERRLA, EOMI x 2, No injected conjunctiva, no nystagmus. EARS: Hearing grossly intact. Ear canals and tympanic membranes are within normal limits. MOUTH: Oropharynx within normal limits. NECK: Supple, trachea is midline, no adenopathy, no JVD, no carotid bruit, no c- spine tenderness, neck with full ROM. CHEST: Symmetric, no tenderness at palpation LUNGS: Bilateral lower lobe crackles CVS: Regular rate and rhythm, S1 and S2 present, no murmurs or gallops appreciated. ABDOMEN: Soft, non-tender. No signs of distention. No rebound no guarding, and no masses palpated. Bowel sounds are normal. EXTREMITIES: FROM in all major joints, no edema, no cyanosis or clubbing. NEURO: Alert and oriented x 3. No acute neurological deficits. Speech is normal and follows commands. SKIN: Dry and warm Triage Information Reviewed: Yes Vital Signs On Initial Exam: Initial Vitals Pulse Resp BP Pulse Ox 78 22 111/49 99 09/22/17 12:00 09/22/17 12:00 09/22/17 12:00 09/22/17 12:00 Vital Signs Reviewed: Yes Diagnostics - Vital Signs Vital Signs Temp Pulse Resp BP Pulse Ox 09/22/17 14:00 79 18 98 09/22/17 13:30 20 103/45 09/22/17 13:15 97 09/22/17 13:00 82 20 106/51 97 09/22/17 12:30 81 19 111/53 97 09/22/17 12:06 98.9 F 89 16 111/49 99 09/22/17 12:00 78 22 111/49 99 - Laboratory Lab Results: Lab Results 09/22/17 09/22/17 09/22/17 Range/Units 13:10 13:10 13:10 WBC 12.2 H (3.5-10.8) 10^3/ul RBC 4.05 (4.0-5.4) 10^6/ul Hgb 12.5 L (14.0-18.0) g/dl Hct 37 L (42-52) % MCV 91 (80-94) fL MCH 31 (27-31) pg MCHC 34 (31-36) g/dl RDW 14 (10.5-15) % Plt Count 303 (150-450) 10^3/ul MPV 7 L (7.4-10.4) um3 Neut % (Auto) 79.5 (38-83) % Lymph % (Auto) 8.5 L (25-47) % [place]Brien % (Auto) 11.6 H (1-9) % Eos % (Auto) 0.2 (0-6) % Baso % (Auto) 0.2 (0-2) % Absolute Neuts (auto) 9.7 H (1.5-7.7) 10^3/ul Absolute Lymphs (auto) 1.0 (1.0-4.8) 10^3/ul Absolute Monos (auto) 1.4 H (0-0.8) 10^3/ul Absolute Eos (auto) 0 (0-0.6) 10^3/ul Absolute Basos (auto) 0 (0-0.2) 10^3/ul Absolute Nucleated RBC 0 10^3/ul Nucleated RBC % 0 INR (Anticoag Therapy) (0.77-1.02) APTT (26.0-36.3) seconds Sodium 135 (133-145) mmol/L Potassium 3.9 (3.5-5.0) mmol/L Chloride 100 L (101-111) mmol/L Carbon Dioxide 28 (22-32) mmol/L Anion Gap 7 (2-11) mmol/L BUN 17 (6-24) mg/dL Creatinine 1.01 (0.67-1.17) mg/dL Est GFR ( Amer) 95.9 (>60) Est GFR (Non-Af Amer) 74.6 (>60) BUN/Creatinine Ratio 16.8 (8-20) Glucose 118 H (70-100) mg/dL Lactic Acid (0.5-2.0) mmol/L Calcium 9.5 (8.6-10.3) mg/dL Magnesium 2.1 (1.9-2.7) mg/dL Total Bilirubin 0.50 (0.2-1.0) mg/dL AST 13 (13-39) U/L ALT 9 (7-52) U/L Alkaline Phosphatase 57 (34-104) U/L Total Creatine Kinase 98 (10-223) U/L CK-MB (CK-2) 3.4 (0.6-6.3) ng/mL Troponin I 0.00 (<0.04) ng/mL B-Natriuretic Peptide 64 ( - 100) pg/mL Total Protein 7.9 (6.4-8.9) g/dL Albumin 3.8 (3.2-5.2) g/dL Globulin 4.1 H (2-4) g/dL Albumin/Globulin Ratio 0.9 L (1-3) TSH 2.06 (0.34-5.60) mcIU/mL Free T4 Cancelled Thyroxine (T4) 7.60 (6.09-12.23) mcg/mL 09/22/17 09/22/17 Range/Units 13:10 13:10 WBC (3.5-10.8) 10^3/ul RBC (4.0-5.4) 10^6/ul Hgb (14.0-18.0) g/dl Hct (42-52) % MCV (80-94) fL MCH (27-31) pg MCHC (31-36) g/dl RDW (10.5-15) % Plt Count (150-450) 10^3/ul MPV (7.4-10.4) um3 Neut % (Auto) (38-83) % Lymph % (Auto) (25-47) % O'Brien % (Auto) (1-9) % Eos % (Auto) (0-6) % Baso % (Auto) (0-2) % Absolute Neuts (auto) (1.5-7.7) 10^3/ul Absolute Lymphs (auto) (1.0-4.8) 10^3/ul Absolute Monos (auto) (0-0.8) 10^3/ul Absolute Eos (auto) (0-0.6) 10^3/ul Absolute Basos (auto) (0-0.2) 10^3/ul Absolute Nucleated RBC 10^3/ul Nucleated RBC % INR (Anticoag Therapy) 0.97 (0.77-1.02) APTT 22.0 L (26.0-36.3) seconds Sodium (133-145) mmol/L Potassium (3.5-5.0) mmol/L Chloride (101-111) mmol/L Carbon Dioxide (22-32) mmol/L Anion Gap (2-11) mmol/L BUN (6-24) mg/dL Creatinine (0.67-1.17) mg/dL Est GFR ( Amer) (>60) Est GFR (Non-Af Amer) (>60) BUN/Creatinine Ratio (8-20) Glucose (70-100) mg/dL Lactic Acid 0.9 (0.5-2.0) mmol/L Calcium (8.6-10.3) mg/dL Magnesium (1.9-2.7) mg/dL Total Bilirubin (0.2-1.0) mg/dL AST (13-39) U/L ALT (7-52) U/L Alkaline Phosphatase (34-104) U/L Total Creatine Kinase (10-223) U/L CK-MB (CK-2) (0.6-6.3) ng/mL Troponin I (<0.04) ng/mL B-Natriuretic Peptide ( - 100) pg/mL Total Protein (6.4-8.9) g/dL Albumin (3.2-5.2) g/dL Globulin (2-4) g/dL Albumin/Globulin Ratio (1-3) TSH (0.34-5.60) mcIU/mL Free T4 Thyroxine (T4) (6.09-12.23) mcg/mL Result Diagrams: 09/24/17 11:09 09/24/17 11:09 Lab Statement: Any lab studies that have been ordered have been reviewed, and results considered in the medical decision making process. - Radiology CXR Radiology Interpretation Completed By: Radiologist - DENSITY OBSCURING THE LEFT LOWER LUNG COULD BE PNEUMONIA IN THE CORRECT CLINICAL SETTING. A FOLLOW-UP CHEST X-RAY AFTER AN APPROPRIATE COURSE OF THERAPY IS ADVISED TO ASCERTAIN RESOLUTION. ED physician has reviewed this radiology report and agrees. - CT CTA Thorax/Chest CT Interpretation Completed By: Radiologist - 1. No CT of evidence of pulmonary embolism. 2. There is persistent bronchiectasis and plugging of the bronchi and bronchioles involving the left lower lobe without significant change compared to the April 11, 2017 CT examination. 3. There has been interval appearance of a left upper lobe mass measuring 3.3 x 3.5 cm in the axial plane as well as interval development of mediastinal lymphadenopathy. Differential includes neoplasm, inflammation or infection. ED physician has reviewed this radiology report and agrees. - EKG 11:54 Cardiac Rate: NL EKG Rhythm: Sinus Rhythm - 71 BPM EKG Interpretation: incomplete RBBB EKG Comparison: No Significant Change - in comparison to EKG from 05/14/17 Chest Pain Course/Dx - Course Assessment/Plan: This patient is a 61 year old M BIBA to [facility] accompanied by with a chief complaint of CP that radiated into his left arm that occurred at 1100 today. The patient rates the pain 3/10 in severity. Symptoms aggravated by movement His states when she saw him he was bent over at the waist. She states during this episode he wasnt making any sense when he spoke, was sweating, and was pale. Pt also reports a low grade fever for that past few days. Patient denies nausea vomiting, recent illness, slurred speech, and coughing (increased from baseline). . Labs without any significant abnormalities except for WBC of 12 with slight anemia, Glucose of 118. CXR reveals, per radiologist, DENSITY OBSCURING THE LEFT LOWER LUNG COULD BE PNEUMONIA IN THE CORRECT CLINICAL SETTING. A FOLLOW-UP CHEST X-RAY AFTER AN APPROPRIATE COURSE OF THERAPY IS ADVISED TO ASCERTAIN. RESOLUTION. CTA Chest/ Thorax reveals, per radiologist, 1. No CT of evidence of pulmonary embolism. 2. There is persistent bronchiectasis and plugging of the bronchi and bronchioles. involving the left lower lobe without significant change compared to the April 11, 2017 CT. examination. 3. There has been interval appearance of a left upper lobe mass measuring 3.3 x 3.5 cm in. the axial plane as well as interval development of mediastinal lymphadenopathy. Differential includes neoplasm, inflammation or infection. Because of the symptoms of fever, productive cough, and bronchiolitis placed the patient on Levaquin. I discussed patient care with Dr. Carlin who agreed to admit the patient. In the ED course an IV access was obtained. Pt was placed in a cardiac cath rn. Pt was started with IV fluids. In the ED course, pt has been improving and is stable and will be admitted with follow up from Dr. Carlin. Pt is hemodynamically stable, alert and oriented x3. - Diagnoses Provider Diagnoses: PNA (pneumonia) Discharge - Discharge Plan Condition: Guarded Disposition: ADMITTED TO [facility] The documentation as recorded by the Asha major Gabriel accurately reflects the service I personally performed and the decisions made by , Dominic Erickson MD.
[2017-09-24] MEDS: Levofloxacin 750 MG IVPREMIX(* 750 MG/150 ML BAG IVPB SCH (15:39)
--- NOTE | 2017-09-24 15:57 | PN ---
Progress Note - Progress Note Date of Service: 09/24/17 SOAP: Subjective: CC: pneumonia HPI: 61 yo man with bronchiectasis and recent fever, worsening cough and left chest pain, mass on CT. Pain is better today, comes on with cough but down to a 4 from 9. Occasional sputum production, teaspoon of blood came up today. Fever last night, no rash or diarrhea. Objective: [] Vital Signs Temp 36.9 C 09/24/17 11:45 Pulse 76 09/24/17 15:41 Resp 14 09/24/17 15:41 BP 138/68 09/24/17 11:45 Pulse Ox 98 09/24/17 15:41 Intake & Output 09/23/17 09/24/17 09/24/17 18:59 06:59 18:59 Intake Total 2383 1519 1580 Output Total 100 Balance 2383 1419 1580 Intake: IV Fluids 1233 1119 1000 ABX - CEFTRIAXONE 60 Normal Saline 1233 1059 1000 Oral 1150 400 580 Output: Urine 100 Other: # Bowel Movements 0 # Voids 1 Gen:awake, no distress HEENT:PERRL, MMM Heart:RRR no murmur Lungs:prolonged expir, scattered rhonchi BL Abd:+BS NTND soft Skin: no rash MSK: no spine tenderness or chest wall tenderness Laboratory Results - last 24 hr 09/24/17 09/24/17 11:09 11:09 WBC 6.2 RBC 3.50 L Hgb 10.8 L Hct 32 L MCV 91 MCH 31 MCHC 34 RDW 14 Plt Count 283 MPV 7 L Neut % (Auto) 66.9 Lymph % (Auto) 16.6 L [place] % (Auto) 16.1 H Eos % (Auto) 0.3 Baso % (Auto) 0.1 Absolute Neuts (auto) 4.1 Absolute Lymphs (auto) 1.0 Absolute Monos (auto) 1.0 H Absolute Eos (auto) 0 Absolute Basos (auto) 0 Absolute Nucleated RBC 0.01 Nucleated RBC % 0.2 Sodium 139 Potassium 3.6 Chloride 105 Carbon Dioxide 29 Anion Gap 5 BUN 12 Creatinine 0.78 Est GFR ( Amer) 129.3 Est GFR (Non-Af Amer) 100.5 BUN/Creatinine Ratio 15.4 Glucose 172 H Calcium 9.1 Microbiology 09/22/17 13:32 Aerobic Blood Culture - Preliminary Blood Venous No Growth Day 2 Anaerobic Blood Culture - Preliminary No Growth Day 2 09/22/17 13:10 Aerobic Blood Culture - Preliminary Blood Venous No Growth Day 2 Anaerobic Blood Culture - Preliminary No Growth Day 2 09/22/17 13:32 Gram Stain - Final Sputum Expectorated Sputum Culture - Final Normal Keri 09/23/17 21:56 Gram Stain - Final Sputum Expectorated Assessment: 1. Lung abscess 2. chest pain due to lung abscess 3. Bronchiectasis with hemoptysis Plan: 1. levaquin 750 mg IV Q24hrs day 3, overall feeling better; recheck CRP 09/25 ( ordered); as long as he and the CRP continue to improve will consider changing to PO levaquin for remainder of 4 week course.
[2017-09-24] MEDS: CMC Escitalopram (NF) 10 MG TAB PO SCH (22:11)
[2017-09-24] MEDS: Lactobacillus Acidophilu (GG)* 1 CAP CAP PO SCH (22:11)
[2017-09-25] MEDS: NS 0.9% 1000 ML* 1,000 ML IV SCH ×2 (01:04→22:16)
[2017-09-25] MEDS: Acetylcysteine INHALATION SOL* 200 MG/ML NEB.SOLN 10 ML INH SCH ×4 (02:00→20:23)
[2017-09-25] MEDS: Heparin VIAL(*) 5000 UNITS/ML VIAL (FIVE THOUSAND) SUBCUT SCH ×2 (06:32→13:16)
[2017-09-25] MEDS: Albuterol 2.5 MG/3 ML NEB.SOL* (0.083%) INH PRN ×3 (07:51→20:26)
[2017-09-25] MEDS: Sodium Chloride(INHALANT) 3%* 4 ML NEB.SOLN INH SCH ×2 (07:54→20:27)
[2017-09-25] MEDS: CMC:LoraTADine TAB(NF) 10 MG TAB (AUTOSUB to CETIRIZINE) PO SCH (09:25)
[2017-09-25] MEDS: Lisdexamfetamine(NF) 10 MG CAP PO SCH (09:26)
[2017-09-25] MEDS: Cholecalciferol TAB* 1000 UNITS PO SCH (09:27)
[2017-09-25] MEDS: PTO:Dimethyl Fumarate(NF) 240 MG CAP PO SCH ×2 (09:28→22:13)
--- NOTE | 2017-09-25 10:29 | PN ---
Subjective Date of Service: 09/25/17 Interval History: Patient seen and examined. Feeling well, states no further chills or rigors. Had broke a sweat once overnight, not as severe as prior episodes. Remains afebrile. Denies chest pain, no SOB, cough improved, pain with cough also improving. No further hemoptysis noted. Tolerating PO, ambulatory. No further complaints. Objective Active Medications: Acetaminophen (Tylenol Tab*) 650 mg PO Q4H PRN PRN Reason: FEVER/PAIN Last Admin: 09/23/17 21:50 Dose: 650 mg Acetylcysteine (Mucomyst Inhalation Sapphire*) 400 mg INH Q6H [facility] Last Admin: 09/25/17 07:51 Dose: 400 mg Albuterol (Ventolin 2.5 Mg/3 Ml Neb.Sapphire*) 2.5 mg INH Q24HR [facility] Last Admin: 09/24/17 12:44 Dose: Not Given Albuterol (Ventolin 2.5 Mg/3 Ml Neb.Sapphire*) 2.5 mg INH Q4H PRN PRN Reason: SOB/WHEEZING Last Admin: 09/25/17 07:51 Dose: 2.5 mg Benzonatate (Tessalon Cap*) 100 mg PO BID PRN PRN Reason: COUGH Chlorpheniramine Maleate (Chlortrimeton Tab*) 4 mg PO BEDTIME PRN PRN Reason: PAIN Cholecalciferol (Vitamin D Tab*) 3,000 units PO QAM [facility] Last Admin: 09/25/17 09:27 Dose: 3,000 units Dimethyl Fumarate (Tecfidera(Nf)) 240 mg PO BID [facility] Last Admin: 09/25/17 09:28 Dose: 240 mg Escitalopram Oxalate (Lexapro (Nf)) 10 mg PO 2100 [facility] Last Admin: 09/24/17 22:11 Dose: 10 mg Heparin Sodium (Porcine) (Heparin Vial(*)) 5,000 units SUBCUT Q8HR [facility] Last Admin: 09/25/17 06:32 Dose: Not Given Sodium Chloride (Ns 0.9% 1000 Ml*) 1,000 mls @ 100 mls/hr IV PER RATE [facility] Last Admin: 09/25/17 01:04 Dose: 100 mls/hr Levofloxacin/Dextrose (Levaquin 750 Mg Ivpremix(*)) 750 mg in 150 mls @ 100 mls /hr IVPB Q24H [facility] Last Admin: 09/24/17 15:39 Dose: 100 mls/hr Ibuprofen (Motrin Tab*) 400 mg PO Q6H PRN PRN Reason: fever/pain Last Admin: 09/23/17 23:44 Dose: 400 mg Lactobacillus Rhamnosus (Culturelle*) 1 cap PO 2100 [facility] Last Admin: 09/24/17 22:11 Dose: 1 cap Lisdexamfetamine Dimesylate (Vyvanse(Nf)) 30 mg PO QAM [facility] Last Admin: 09/25/17 09:26 Dose: 30 mg Loratadine (Claritin Tab(Nf)) 10 mg PO DAILY [facility] Last Admin: 09/25/17 09:25 Dose: 10 mg Melatonin (Melatonin (Nf)) 3 mg PO BEDTIME PRN; Protocol PRN Reason: SLEEP Sodium Chloride (Sodium Chloride(Inhalant) 3%*) 4 ml INH BID [facility] Last Admin: 09/25/17 07:54 Dose: Not Given Vital Signs - 8 hr 09/25/17 09/25/17 09/25/17 03:26 07:38 07:54 Temperature 99.0 F 98.7 F Pulse Rate 78 77 78 Respiratory 16 16 14 Rate Blood Pressure 155/70 132/64 (mmHg) O2 Sat by Pulse 96 98 98 Oximetry 09/25/17 08:00 Temperature Pulse Rate Respiratory 16 Rate Blood Pressure (mmHg) O2 Sat by Pulse Oximetry Oxygen Devices in Use Now: None Appearance: Alert, NAD Eyes: No Scleral Icterus, PERRLA Ears/Nose/Mouth/Throat: NL Teeth, Lips, Gums Neck: NL Appearance and Movements; NL JVP Respiratory: Symmetrical Chest Expansion and Respiratory Effort - diminished L base, good air exchange, no rhonchi, mild expiratory wheeze greatly improved Cardiovascular: NL Sounds; No Murmurs; No JVD Abdominal: NL Sounds; No Tenderness; No Distention Skin: No Rash or Ulcers Neurological: Alert and Oriented x 3, NL Gait, NL Muscle Strength and Tone Nutrition: Taking PO's Result Diagrams: 09/24/17 11:09 09/24/17 11:09 Additional Lab and Data: Abnormal Lab Results 09/24/17 09/24/17 09/25/17 11:09 11:09 06:10 WBC 6.2 RBC 3.50 L Hgb 10.8 L Hct 32 L MCV 91 MCH 31 MCHC 34 RDW 14 Plt Count 283 MPV 7 L Neut % (Auto) 66.9 Lymph % (Auto) 16.6 L [place] % (Auto) 16.1 H Eos % (Auto) 0.3 Baso % (Auto) 0.1 Absolute Neuts (auto) 4.1 Absolute Lymphs (auto) 1.0 Absolute Monos (auto) 1.0 H Absolute Eos (auto) 0 Absolute Basos (auto) 0 Absolute Nucleated RBC 0.01 Nucleated RBC % 0.2 Sodium 139 Potassium 3.6 Chloride 105 Carbon Dioxide 29 Anion Gap 5 BUN 12 Creatinine 0.78 Est GFR ( Amer) 129.3 Est GFR (Non-Af Amer) 100.5 BUN/Creatinine Ratio 15.4 Glucose 172 H Calcium 9.1 C-Reactive Protein 92.44 H Microbiology and Other Data: Microbiology 09/22/17 17:25 Legionella Urinary Antigen - Final Urine Negative Legionella Streptococcus pneumoniae Ag Screen - Final Negative S. pneumo Antigen Assess/Plan/Problems-Billing Assessment: - Patient Problems (1) Bronchiectasis Code(s): J47.9 - BRONCHIECTASIS, UNCOMPLICATED SNOMED Code(s): 05962903 Comment: - On low dose azithromycin daily, will be continued - Monitor respiratory status, currently stable sats and RR, remains stable - Patient to follow with [facility] outpatient (2) DVT prophylaxis Code(s): KUS5125 - SNOMED Code(s): 193682453 Comment: - Ambulatory but higher risk, on heparin SQ Q8h (3) Full code status Code(s): Z78.9 - OTHER SPECIFIED HEALTH STATUS SNOMED Code(s): 480476949 (4) Pneumonia Code(s): J18.9 - PNEUMONIA, UNSPECIFIED ORGANISM SNOMED Code(s): 183239779 Comment: - Dr. Begum managing atbx therapy, will continue levaquin PO at DC - Follow cultures/micro, currently NTD - Continue nebs with albuterol/mucomyst and PRN albuterol - Trend temps and WBCs, improved/trending down - CRP trending down - Hemoptysis resolving (5) Depression Code(s): F32.9 - MAJOR DEPRESSIVE DISORDER, SINGLE EPISODE, UNSPECIFIED SNOMED Code(s): 89214794 Comment: - Continue vyvanse and lexapro - Mood stable (6) Multiple sclerosis Current Visit: No Status: Chronic Code(s): G35 - MULTIPLE SCLEROSIS SNOMED Code(s): 10913560 Comment: - Continue dimethyl fumarate, stable at present (7) TANA (obstructive sleep apnea) Code(s): G47.33 - OBSTRUCTIVE SLEEP APNEA (ADULT) (PEDIATRIC) SNOMED Code(s): 21369241 Comment: - Stable, continue to monitor respiratory status, stable Status and Disposition: This is a 61 year old male with complicated PNA and bronchiectasis with further clinical improvement. Per patient, [facility] had recommended 10 days IV atbx post DC with PICC line, however, with negative blood and sputum cultures I do not know if this will be necessary. Will discuss with Dr. Begum today. Patient is otherwise medically stable for discharge pending further antibiotic recommendations and clearance by ID and possible consultation with [facility] Dr. Jn Muñiz [phone].
[2017-09-25] MEDS: Albuterol 2.5 MG/3 ML NEB.SOL* (0.083%) INH SCH (11:33)
[2017-09-25] MEDS: Levofloxacin 750 MG IVPREMIX(* 750 MG/150 ML BAG IVPB SCH (16:10)
[2017-09-25] MEDS: CMC Escitalopram (NF) 10 MG TAB PO SCH (22:13)
[2017-09-25] MEDS: Lactobacillus Acidophilu (GG)* 1 CAP CAP PO SCH (22:13)
[2017-09-26] MEDS: Heparin VIAL(*) 5000 UNITS/ML VIAL (FIVE THOUSAND) SUBCUT SCH ×3 (00:57→13:17)
[2017-09-26] MEDS: Ibuprofen TAB* 400 MG PO PRN (01:04)
[2017-09-26] MEDS: Acetylcysteine INHALATION SOL* 200 MG/ML NEB.SOLN 10 ML INH SCH ×2 (01:14→08:40)
--- NOTE | 2017-09-26 08:15 | PN ---
Subjective Date of Service: 09/26/17 Interval History: Mr. Jarvis reports that he is feeling relatively well today. His hemoptysis has resolved and his breathing feels close to baseline. He feels comfortable with discharge to home to complete further IV antibiotics. Objective Active Medications: Acetaminophen (Tylenol Tab*) 650 mg PO Q4H PRN Acetylcysteine (Mucomyst Inhalation Sapphire*) 400 mg INH Q6H [facility] Albuterol (Ventolin 2.5 Mg/3 Ml Neb.Sapphire*) 2.5 mg INH Q24HR [facility] Albuterol (Ventolin 2.5 Mg/3 Ml Neb.Sapphire*) 2.5 mg INH Q4H PRN Benzonatate (Tessalon Cap*) 100 mg PO BID PRN Chlorpheniramine Maleate (Chlortrimeton Tab*) 4 mg PO BEDTIME PRN Cholecalciferol (Vitamin D Tab*) 3,000 units PO QAM [facility] Dimethyl Fumarate (Tecfidera(Nf)) 240 mg PO BID [facility] Escitalopram Oxalate (Lexapro (Nf)) 10 mg PO 2100 [facility] Heparin Sodium (Porcine) (Heparin Vial(*)) 5,000 units SUBCUT Q8HR [facility] Sodium Chloride (Ns 0.9% 1000 Ml*) 1,000 mls @ 100 mls/hr IV PER RATE [facility] Levofloxacin/Dextrose (Levaquin 750 Mg Ivpremix(*)) 750 mg in 150 mls @ 100 mls /hr IVPB Q24H [facility] Ibuprofen (Motrin Tab*) 400 mg PO Q6H PRN Lactobacillus Rhamnosus (Culturelle*) 1 cap PO 2100 [facility] Lisdexamfetamine Dimesylate (Vyvanse(Nf)) 30 mg PO QAM [facility] Loratadine (Claritin Tab(Nf)) 10 mg PO DAILY [facility] Melatonin (Melatonin (Nf)) 3 mg PO BEDTIME PRN; Protocol Sodium Chloride (Sodium Chloride(Inhalant) 3%*) 4 ml INH BID [facility] Vital Signs: Temp Pulse Resp BP Pulse Ox 97.8 F 61 16 157/73 98 09/26/17 03:25 09/26/17 03:25 09/26/17 03:25 09/26/17 03:25 09/26/17 03:25 Oxygen Devices in Use Now: None Appearance: Male sitting up in bed in NAD Eyes: No Scleral Icterus Ears/Nose/Mouth/Throat: Mucous Membranes Moist Neck: Trachea Midline Respiratory: Symmetrical Chest Expansion and Respiratory Effort, - - Diminished left base, no rhonchi or wheezes noted Cardiovascular: NL Sounds; No Murmurs; No JVD, No Edema Abdominal: NL Sounds; No Tenderness; No Distention Extremities: No Edema Skin: No Rash or Ulcers Neurological: Alert and Oriented x 3, NL Muscle Strength and Tone Nutrition: Taking PO's Result Diagrams: 09/24/17 11:09 09/24/17 11:09 Additional Lab and Data: . Microbiology and Other Data: . Assess/Plan/Problems-Billing Assessment: Mr. Hernandes is a 61 yo M with a PMH of MS, asthma, bronchiectasis who was admitted on 09/22/17 with chest pain found to have sepsis secondary to lung abscess. - Patient Problems (1) Lung abscess Comment: - No fever since 09/23. Mild leukocytosis resolved. CRP trending down. Hemoptysis resolved. - Appreciate consultation from Dr. Begum, question early abscess versus dense pneumonia. Plan for IV levaquin x 5 days at the infusion center followed by 3 weeks of levaquin orally. - Blood and sputum cultures, NGTD. - Continue nebs with albuterol/mucomyst and PRN albuterol (2) Bronchiectasis Comment: - Recommendation for daily azithromycin per [facility]. Held while on levaquin. - Patient also following with Dr. Escobar and Dr. Begum. (3) COPD (chronic obstructive pulmonary disease) Comment: - No signs of acute sxacerbation at this time - Continue PRN albuterol nebs and advair (4) Depression Comment: - Continue vyvanse and lexapro. (5) Multiple sclerosis Comment: - Continue dimethyl fumarate. (6) TANA (obstructive sleep apnea) Comment: - Patient does not currently use cpap, reports saw no improvement in symptoms with use in the past. (7) DVT prophylaxis Comment: -Heparin SQ Q8h (8) Full code status Status and Disposition: Inpatient. Discharge to home.
[2017-09-26] MEDS: NS 0.9% 1000 ML* 1,000 ML IV SCH (08:19)
[2017-09-26] MEDS: Albuterol 2.5 MG/3 ML NEB.SOL* (0.083%) INH PRN (08:40)
[2017-09-26] MEDS: Sodium Chloride(INHALANT) 3%* 4 ML NEB.SOLN INH SCH (08:41)
--- NOTE | 2017-09-26 09:09 | PN ---
Progress Note - Progress Note Date of Service: 09/26/17 SOAP: Subjective: CC: pneumonia HPI: 61 yo man with bronchiectasis and recent fever, worsening cough and left chest pain, mass on CT. Pain and hemoptysis improving. No fever, rash, or diarrhea. Objective: [] Vital Signs Temp 36.6 C 09/26/17 03:25 Pulse 61 09/26/17 03:25 Resp 16 09/26/17 03:25 BP 157/73 09/26/17 03:25 Pulse Ox 98 09/26/17 03:25 Intake & Output 09/25/17 09/26/17 09/26/17 18:59 06:59 18:59 Intake Total 730 783 Balance 730 783 Intake: IV Fluids 783 Normal Saline 783 Oral 730 0 Other: Estimated Void Medium # Bowel Movements 0 0 # Voids 2 1 Gen:awake, no distress HEENT:PERRL, MMM Heart:RRR no murmur Lungs:prolonged expir, scattered rhonchi BL Abd:+BS NTND soft Skin: no rash MSK: no spine tenderness or chest wall tenderness Microbiology 09/23/17 21:56 Gram Stain - Final Sputum Expectorated Sputum Culture - Final Normal Keri 09/22/17 13:32 Aerobic Blood Culture - Preliminary Blood Venous No Growth Day 3 Anaerobic Blood Culture - Preliminary No Growth Day 3 09/22/17 13:10 Aerobic Blood Culture - Preliminary Blood Venous No Growth Day 3 Anaerobic Blood Culture - Preliminary No Growth Day 3 Assessment: 1. Lung abscess 2. chest pain due to lung abscess 3. Bronchiectasis with hemoptysis Plan: 1. levaquin 750 mg IV Q24hrs day 5, his barn manager at [facility] wants him to have 5 more days IV, we discussed no clear benefit to this approach, but we can set it up; higher risk of complications, he will follow for fever, rash, or diarrhea and call if any. Follow this with 3 weeks PO levaquin. Discussed with Raysa Barboza [employer] 35 minutes floor time >50% in counseling regarding next steps in treatment with antibiotics.
[2017-09-26] MEDS: Cholecalciferol TAB* 1000 UNITS PO SCH (09:25)
[2017-09-26] MEDS: Lisdexamfetamine(NF) 10 MG CAP PO SCH (09:27)
[2017-09-26] MEDS: PTO:Dimethyl Fumarate(NF) 240 MG CAP PO SCH (09:28)
[2017-09-26] MEDS: CMC:LoraTADine TAB(NF) 10 MG TAB (AUTOSUB to CETIRIZINE) PO SCH (09:28)
[2017-09-26] MEDS: Albuterol 2.5 MG/3 ML NEB.SOL* (0.083%) INH SCH (11:06)
[2017-09-26 11:44] VITALS: BP 147/77
[2017-09-26] MEDS ORDERED: Levofloxacin 750 MG IVPREMIX(* 750 MG/150 ML BAG IVPB ONE (12:00)
--- NOTE | 2017-09-26 16:32 | DS ---
CC: Dr. Walter; Dr. Begum; Dr. Escobar * [facility] MEDICINE DISCHARGE SUMMARY: DATE OF ADMISSION: 09/22/17 DATE OF DISCHARGE: 09/26/17 PRIMARY CARE PHYSICIAN: Dr. Walter. INFECTIOUS DISEASE DOCTOR: Dr. Begum. WEIGHT ANALYST: Dr. Escobar. ATTENDING PHYSICIAN: Leann Coy MD * (dictation provided by Raysa Barboza NP ) PRIMARY DIAGNOSES: 1. Dense pneumonia versus early lung abscess. 2. Sepsis, now resolved. SECONDARY DIAGNOSES: 1. Bronchiectasis. 2. Multiple sclerosis. 3. Asthma/chronic obstructive pulmonary disease. 4. Obstructive sleep apnea, not treated. 5. Psoriasis. 6. Chronic sinusitis. PAST SURGICAL HISTORY: 1. Status post septoplasty 2. Status post tonsillectomy. 3. Status post multiple bronchoscopies. 4. Status post bilateral inguinal hernia repairs. MEDICATIONS: At the time of discharge; 1. Levaquin 750 mg IV x5 days. 2. Levaquin 750 mg p.o. x3 weeks at the conclusion of IV infusion. 3. Albuterol 2.5 mg inhaled b.i.d. 4. Melatonin 3 mg p.o. at bedtime p.r.n. 5. Sodium chloride 3% inhalation 1 unit inhaled b.i.d. with albuterol. 6. Chlor-Trimeton tablet 4 mg p.o. bedtime p.r.n. 7. Xylitol 500 mg lozenges daily p.r.n. 8. Loratadine 10 mg p.o. daily. 9. Lisdexamfetamine 30 mg p.o. q. a.m. 10. Lactobacillus Culturelle 1 cap p.o. q. p.m. 11. Escitalopram 10 mg p.o. q. p.m. 12. Tecfidera 240 mg p.o. b.i.d. 13. Cholecalciferol 3000 units p.o. q. a.m. 14. Tylenol p.r.n. HOSPITAL COURSE: Mr. Hernandes is a 61-year-old male with a past medical history of bronchiectasis, COPD/asthma, obstructive sleep apnea and multiple sclerosis on immunomodulation therapy who presented to the hospital on 09/22/17 with concern for left-sided chest pain and feeling unwell. Please see the dictated H and P from Marta Fontana for complete details. In brief, the patient has ongoing difficulties with chronic bronchiectasis with three admissions to our hospital this year. For this, he follows with Dr. Begum from Infectious Diseases, Dr. Escobar from Pulmonology, and a architectural design lecturer at [facility]. It was felt that the patient was having chronic intermittent pulmonary infection secondary to his immunomodulator therapy in the setting of his bronchiectasis. The patient had a CT of the chest on arrival, which showed that he had "no CT evidence of pulmonary embolism. There is persistent bronchiectasis and plugging of the bronchi and bronchioles involving the left lower lobe without significant change compared to the 04/11/17 CT examination. There has been interval appearance of left upper lobe mass measuring 3.3 x 3.5 cm in the axial plane as well as interval development of mediastinal lymphadenopathy." The patient met sepsis criteria early during hospitalization with fever and mildly elevated respiratory rate and mildly elevated white blood cell count. Mr. Hernandes was admitted to the hospital. Initially on arrival, he had ceftriaxone added to his chronic home azithromycin for treatment of pneumonia. He was seen in consultation by Dr. Begum the following day who recommended IV Levaquin. The patient had blood cultures and sputum cultures, all of which have remained negative. He has also had negative strep pneumo urine antigen and legionella urinary antigen. Mr. Hernandes has improved slowly, but is doing well today. He has had no fever since 09/23/17. His mild elevation in white blood cell count to 12.2 is resolved. He had some hemoptysis early in hospitalization secondary to his bronchiectasis which is now resolved. He is breathing well and feels that he is close to baseline. Conversations have been undertaken between Dr. Begum from Infectious Diseases and from the patient's architectural design lecturer at [facility], Dr. Galo Anderson. The plan is for an additional 5 days of intravenous Levaquin followed by 3 weeks of oral Levaquin. The patient will be following up at the infusion center here at [facility] for initiation of those infusions and then following with Dr. Begum as outpatient and at [facility] and with Dr. Escobar p.r.n. Mr. Hernandes is medically stable for discharge to home. DISPOSITION: To home. DIET: Regular. ACTIVITY: As tolerated. FOLLOWUP PLANS: 1. Please follow up with Dr. Begum. Please call for an appointment within the next 3 weeks. 2. Please follow up with Dr. Walter. An appointment should be made prior to discharge. TIME SPENT: Approximately 60 minutes was spent on the discharge on this patient , more than half the time was spent with the patient at the bedside reviewing the events leading up to this hospitalizations and during this hospitalization, performing the physical examination and reviewing my plan of care. RAYSA BARBOZA, FLORINA [id number]/CPS #: [id number] KEREN
== END 2017-09-26 13:41 | disposition home or self-care (01) | DRG 720 ==
LOC: ED 11:36 → MEDTELE 14:26 → ED 16:39 → MED 09-23 17:24
PROVIDERS: ADMIT Internal Medicine; ATTEND Internal Medicine
DX: A41.9 Sepsis, unspecified organism (principal); J85.1 Abscess of lung with pneumonia; G93.41 Metabolic encephalopathy; J47.0 Bronchiectasis with acute lower respiratory infection; I45.2 Bifascicular block; R04.2 Hemoptysis; F41.9 Anxiety disorder, unspecified; G35 Multiple sclerosis; G47.33 Obstructive sleep apnea (adult) (pediatric); J32.9 Chronic sinusitis, unspecified; L40.9 Psoriasis, unspecified; R91.8 Other nonspecific abnormal finding of lung field; R59.0 Localized enlarged lymph nodes; Z88.2 Allergy status to sulfonamides; Z88.8 Allergy status to other drugs, medicaments and biological substances; Z87.442 Personal history of urinary calculi; Z82.49 Family history of ischemic heart disease and other diseases of the circulatory system; Z72.89 Other problems related to lifestyle
CPT/HCPCS: 36415; 71020; 71275; 80048; 80053; 81003; 81015; 82550; 82553; 83605; 83735; 83880; 84436; 84443; 84484; 85025; 85610; 85730; 86140; 87040; 87070; 87205; 87899; 93005; 94640; 94760; A9270-GY; J0696; J1644; Q9967